=== PATIENT | female | born 1965 | race Caucasian/White ===

== ENCOUNTER → 2016-12-16 | Outpatient (REF) | payer OTHER | LOC: M SFHCWAGY 13:03 | PROVIDERS: ATTEND Nurse Practitioner Family | DX: N30.00 Acute cystitis without hematuria (principal) ==

== ENCOUNTER 2017-05-01 08:19 | Emergency (ER) | payer OTHER ==
[~2017-05-01] VITALS: Ht 170.2 cm; Wt 115.5 kg
[2017-05-01] MEDS ORDERED: MULT1CHW39 PO (08:48)
[2017-05-01] MEDS ORDERED: NS 1,000 ML IV ONE (09:00)
[2017-05-01 09:33] LABS: BASO # 0.1 K/mm3 (0.0-0.2); BASO % 0.5 % (0.0-1.0); EOS # 0.2 K/mm3 (0.0-0.50); EOS % 1.4 % (0.0-3.0); LARGE UNSTAINED CELL # 0.1 K/mm3 (0.0-0.4); LARGE UNSTAINED CELL % 0.9 % (0.0-4.0); LYMPH # 2.1 K/mm3 (1.5-4.5); LYMPH % 13.5 % (24.0-44.0); MEAN CORPUSCULAR HEMOGLOBIN 31.1 pg (27.0-33.0); MEAN CORPUSCULAR HGB CONC 33.5 g/dl (32.0-36.5); MEAN CORPUSCULAR VOLUME 92.7 fl (80.0-96.0); MONO # 0.7 K/mm3 (0.0-0.8); MONO % 4.7 % (0.0-5.0); NEUTROPHILS # 12.1 K/mm3 (1.8-7.7); NEUTROPHILS % 79.1 % (36.0-66.0); PLATELET COUNT, AUTOMATED 312 k/mm3 (150-450); RED CELL DISTRIBUTION WIDTH 13.2 % (11.5-14.5); WHITE BLOOD COUNT 15.3 K/mm3 (4.0-10.0)
[2017-05-01 09:51] LABS: ALBUMIN 3.1 GM/DL (3.2-5.2); ALBUMIN/GLOBULIN RATIO 0.72 (1.00-1.93); ALKALINE PHOSPHATASE 79 U/L (45-117); ALT/SGPT 19 U/L (12-78); ANION GAP 6 MEQ/L (8-16); AST/SGOT 10 U/L (15-37); BILIRUBIN,DIRECT 0.2 MG/DL (0.0-0.2); BLOOD UREA NITROGEN 14 MG/DL (7-18); CALCIUM LEVEL 9.1 MG/DL (8.5-10.1); CARBON DIOXIDE LEVEL 29 MEQ/L (21-32); CHLORIDE LEVEL 96 MEQ/L (98-107); CREATININE FOR GFR 0.89 MG/DL (0.55-1.02); GLOMERULAR FILTRATION RATE > 60.0 (>51); GLUCOSE, FASTING 395 MG/DL (70-105); POTASSIUM SERUM 4.1 MEQ/L (3.5-5.1); SODIUM LEVEL 131 MEQ/L (136-145); TOTAL PROTEIN 7.4 GM/DL (6.4-8.2)
[2017-05-01 09:57] LABS: CONTROL LINE UCG INT CTR LINE PRESENT
[2017-05-01] MEDS ORDERED: ISOVUE-370 76% 100ML VIAL (Q9967) As Ordered ONE (10:29)
[2017-05-01] MEDS ORDERED: HumuLIN R (REGULAR) INSULIN (NovoLIN R) **100U/ML** PER UNIT IV ONE (10:30)
[2017-05-01] MEDS ORDERED: cefTRIAXone SOD 1 GM in D5W MINI-BAG PLUS 50 ML IV ONE (10:30)
[2017-05-01 11:18] LABS: INR 1.03
--- NOTE | 2017-05-01 11:33 | REP ---
KUB: Single view. HISTORY: Question stone. Comparison KUB April 18, 2011. FINDINGS: There is a 5.4 cm staghorn calculus projecting over the upper pole of the right kidney. In addition, there is a oval-shaped 8.6 mm calculus projecting in the left pelvis which could be in the distal ureter. Bowel gas pattern is normal. There are degenerative changes in the lumbar spine. No mass or organomegaly is seen. IMPRESSION: 1. Suspect 5.4 cm staghorn calculus upper pole right kidney. 2. Suspect a 8.6 mm distal ureteral calculus on the left. Signed by Mason Becerril MD 05/01/2017 12:59 P
[2017-05-01] MEDS ORDERED: METF500T PO (12:17)
[2017-05-01] MEDS ORDERED: CIPR500T89 PO (12:17)
[2017-05-01] MEDS ORDERED: ADVOMIS4 XX (12:17)
[2017-05-01] MEDS ORDERED: D-CA1KIT XX (12:17)
[2017-05-01 12:22] VITALS: BP 179/86
--- NOTE | 2017-05-01 15:24 | REP ---
URINARY TRACT SONOGRAPHY: HISTORY: Pyelonephritis versus stone. SONOGRAPHIC FINDINGS: In the upper pole right kidney there is a large shadowing calculus. The right kidney measures 14.4 x 5.4 x 6.6 cm. No right-sided hydronephrosis is seen. The right kidney is otherwise unremarkable. The left kidney is not well seen. There are multiple echogenic interfaces in the region of the left kidney. These resemble calcifications perhaps gas as there is acoustic shadowing. They obscure much of the visualization of the kidney. No large stones are visible in the left kidney by KUB. Limited views of the urinary bladder shows that it is unremarkable as seen. IMPRESSION: 1. Large intrarenal calculus right kidney no right-sided hydronephrosis. 2. Poorly visualized left kidney. Multiple echogenic interfaces throughout the region of the left kidney, calculi versus gas. Recommend CT scanning. Signed by Masno Becerril MD 05/01/2017 04:48 P
--- NOTE | 2017-05-02 07:56 | ED PDOC ---
Post-Departure Follow-Up radiology report faxed to Jose Francisco Harris Sarah MD May 02, 2017 07:56
== END 2017-05-01 12:30 | disposition left against medical advice (07) ==
LOC: M ED 09:03
DX: N39.0 Urinary tract infection, site not specified (principal); E11.65 Type 2 diabetes mellitus with hyperglycemia; N20.0 Calculus of kidney; Z91.040 Latex allergy status; Z91.013 Allergy to seafood; Z88.1 Allergy status to other antibiotic agents; Z88.2 Allergy status to sulfonamides; Z79.899 Other long term (current) drug therapy

== ENCOUNTER → 2017-05-09 | Outpatient (REF) | payer OTHER ==
[~2017-05-09] MED LIST: ADVOMIS4 XX; CIPR500T89 PO; D-CA1KIT XX; METF500T PO; MULT1CHW39 PO
== END ==
LOC: M LAB REF 13:49
PROVIDERS: ATTEND Nurse Practitioner Family
DX: E11.9 Type 2 diabetes mellitus without complications (principal)

== ENCOUNTER → 2017-05-17 | Outpatient (REF) | payer OTHER ==
[2017-05-17 19:38] LABS: TRIPLE PHOSPHATE CRYSTALS MODERATE
== END ==
LOC: M SMT 17:19
PROVIDERS: ATTEND Nurse Practitioner Women's Health
DX: N39.0 Urinary tract infection, site not specified (principal)

== ENCOUNTER → 2017-05-24 | Outpatient (REF) | payer OTHER ==
[~2017-05-24] MED LIST changes: +CIPR-249 PO; -CIPR500T89 PO; -METF500T PO; +METF500T13 PO
== END ==
LOC: M SFHCWAGY 13:43
PROVIDERS: ATTEND Nurse Practitioner Family
DX: Z12.4 Encounter for screening for malignant neoplasm of cervix (principal)

== ENCOUNTER → 2017-08-29 | Outpatient (REF) | payer OTHER | LOC: M LAB REF 11:58 | PROVIDERS: ATTEND Nurse Practitioner Family | DX: E11.9 Type 2 diabetes mellitus without complications (principal) ==

== ENCOUNTER → 2017-09-11 | Outpatient (CLI) | payer OTHER ==
[2017-09-11 13:35] LABS: ALBUMIN 3.8 GM/DL (3.2-5.2); ALKALINE PHOSPHATASE 77 U/L (45-117); ALT/SGPT 29 U/L (12-78); ANION GAP 4 MEQ/L (8-16); AST/SGOT 14 U/L (15-37); BILIRUBIN,TOTAL 0.5 MG/DL (0.2-1.0); BLOOD UREA NITROGEN 20 MG/DL (7-18); CALCIUM LEVEL 9.2 MG/DL (8.5-10.1); CARBON DIOXIDE LEVEL 32 MEQ/L (21-32); CHLORIDE LEVEL 102 MEQ/L (98-107); CHOLESTEROL LEVEL 193 MG/DL (<200); GLOMERULAR FILTRATION RATE > 60.0 (>51); GLUCOSE, FASTING 186 MG/DL (70-105); POTASSIUM SERUM 4.6 MEQ/L (3.5-5.1); SODIUM LEVEL 138 MEQ/L (136-145); TOTAL PROTEIN 7.6 GM/DL (6.4-8.2); TRIGLYCERIDES LEVEL 160 MG/DL (<150)
== END ==
LOC: M SMT 10:49
PROVIDERS: ATTEND Nurse Practitioner Family
DX: E11.9 Type 2 diabetes mellitus without complications (principal); E78.5 Hyperlipidemia, unspecified

== ENCOUNTER → 2017-12-07 | Outpatient (REF) | payer OTHER ==
[2017-12-07 21:03] LABS: ESTIMATED AVERAGE GLUCOSE 154 MG/DL (60-110)
== END ==
LOC: M LAB REF 18:43
DX: E11.9 Type 2 diabetes mellitus without complications (principal)

== ENCOUNTER → 2018-05-10 | Outpatient (CLI) | payer OTHER | LOC: M SMT 12:09 | DX: N20.0 Calculus of kidney (principal) | CPT/HCPCS: 74018 ==

== ENCOUNTER → 2018-06-04 | Outpatient (REF) | payer OTHER ==
[2018-06-04 14:11] LABS: ESTIMATED AVERAGE GLUCOSE 183 MG/DL (60-110)
[2018-06-04 14:27] LABS: CREATININE, URINE 79.2 MG/DL; MAU/CREAT RATIO 213.3 MCG/MG (0.0-30.0)
== END ==
LOC: M LAB REF 13:18
DX: E11.9 Type 2 diabetes mellitus without complications (principal)
CPT/HCPCS: 84443

== ENCOUNTER → 2018-10-23 | Outpatient (REF) | payer OTHER, SELFPAY ==
[2018-10-23 19:37] LABS: BASO # 0.1 10^3/uL (0.0-0.2); BASO % 0.8 % (0.0-1.0); EOS # 0.2 10^3/uL (0.0-0.50); EOS % 1.9 % (0.0-3.0); HEMATOCRIT 43.2 % (36.0-47.0); HEMOGLOBIN 14.3 g/dl (12.0-15.5); LYMPH # 2.6 10^3/uL (1.5-4.5); MEAN CORPUSCULAR HEMOGLOBIN 29.9 pg (27.0-33.0); MEAN CORPUSCULAR HGB CONC 33.1 g/dl (32.0-36.5); MEAN CORPUSCULAR VOLUME 90.4 fl (80.0-96.0); MONO # 0.8 10^3/uL (0.0-0.8); MONO % 7.2 % (0.0-5.0); NEUTROPHILS # 7.4 10^3/uL (1.8-7.7); NEUTROPHILS % 64.7 % (36.0-66.0); PLATELET COUNT, AUTOMATED 314 10^3/uL (150-450); RED BLOOD COUNT 4.78 10^6/uL (4.00-5.40); WHITE BLOOD COUNT 11.4 10^3/uL (4.0-10.0)
[2018-10-23 19:54] LABS: HEMOGLOBIN A1c 8.6 %
[2018-10-23 20:18] LABS: ALBUMIN 3.3 GM/DL (3.2-5.2); ALT/SGPT 51 U/L (12-78); BILIRUBIN,TOTAL 0.5 MG/DL (0.2-1.0); BLOOD UREA NITROGEN 22 MG/DL (7-18); CALCIUM LEVEL 8.9 MG/DL (8.5-10.1); CARBON DIOXIDE LEVEL 29 MEQ/L (21-32); CHLORIDE LEVEL 98 MEQ/L (98-107); CREATININE FOR GFR 0.87 MG/DL (0.55-1.30); GLOMERULAR FILTRATION RATE > 60.0 (>51); GLUCOSE, FASTING 212 MG/DL (70-100); MAGNESIUM LEVEL 1.6 MG/DL (1.8-2.4); POTASSIUM SERUM 4.5 MEQ/L (3.5-5.1); SODIUM LEVEL 136 MEQ/L (136-145); TOTAL PROTEIN 7.1 GM/DL (6.4-8.2)
== END ==
LOC: M LAB REF 19:09
PROVIDERS: ATTEND Nurse Practitioner Adult Health
DX: E11.9 Type 2 diabetes mellitus without complications (principal); I10 Essential (primary) hypertension

== ENCOUNTER → 2018-10-23 | Outpatient (REF) | payer OTHER ==
[2018-10-23 18:41] LABS: APPEARANCE, URINE HAZY (CLEAR); BACTERIA, URINE AUTO NEGATIVE (NEGATIVE); BILIRUBIN, URINE AUTO NEGATIVE (NEGATIVE); BLOOD, URINE BLOOD 2+ (NEGATIVE); COLOR, URINE YELLOW (YELLOW); GLUCOSE, URINE (UA) AUTO NEGATIVE (NEGATIVE); KETONE, URINE AUTO NEGATIVE (NEGATIVE); LEUKOCYTE ESTERASE, URINE AUTO 3+ (NEGATIVE); MUCUS, URINE SMALL (NEGATIVE); NITRITE, URINE AUTO NEGATIVE (NEGATIVE); PROTEIN, URINE AUTO 1+ mg/dL (NEGATIVE); RBC, URINE AUTO 13 /HPF (0-3); SPECIFIC GRAVITY URINE AUTO 1.013 (1.002-1.035); SQUAMOUS EPITHELIAL CELL UR AU 2 /HPF (0-6); UROBILINOGEN, URINE AUTO 0.2 mg/dL (0.0-2.0); WBC, URINE AUTO 89 /HPF (0-3)
[2018-10-23 18:51] LABS: CREATININE, URINE 96.5 MG/DL; MAU/CREAT RATIO 130.5 MCG/MG (0.0-30.0)
== END ==
LOC: M LAB REF 18:02
DX: I10 Essential (primary) hypertension (principal); E11.9 Type 2 diabetes mellitus without complications
CPT/HCPCS: 82043

== ENCOUNTER → 2019-02-20 | Outpatient (REF) | payer OTHER ==
[2019-02-20 13:27] LABS: HEMOGLOBIN A1c 9.6 %
== END ==
LOC: M LAB REF 12:14
PROVIDERS: ATTEND Nurse Practitioner Adult Health
DX: E11.9 Type 2 diabetes mellitus without complications (principal)

== ENCOUNTER → 2019-05-01 | Outpatient (CLI) | payer OTHER ==
[~2019-05-01] MED LIST changes: -MULT1CHW39 PO; +MULT200T7 PO
--- NOTE | 2019-05-02 05:50 | REP ---
Clinical: Abnormal lung findings. Technique: Axial noncontrast images from the thoracic inlet to the upper abdomen with coronal and sagittal re-formations. Findings: A 16 mm round noncalcified nodule is identified in the lateral segment right middle lobe (image 53) comparison is made to abdominal CT from outside institution dated 10/01/2018 which demonstrates lesions measure approximately 14.5 mm. Size difference may be technical rather than due to actual growth. A second smaller noncalcified nodule is identified just proximally along the same vascular bundle (image 47) which measures 5 mm and remains stable. Lymph nodes within the mediastinum measure up to 11 mm and are nonspecific in appearance. Remainder of lung flores are relatively well aerated. Minimal fibroatelectatic changes to the lingula noted. No further consolidation, nodule or mass lesion identified. No effusion. No pneumothorax. Tracheobronchial tree is patent. Thoracic aorta and heart/pericardium are stable including small pericardial fluid. Osseous structures are intact without focal abnormality. Limited upper abdomen demonstrates normal bilateral adrenal glands. Impression: 1. Two noncalcified nodules measuring 5 mm and 16 mm which may be relatively stable when allowing for subtle technical differences. Given the size of the larger nodule PET-CT may be appropriate follow-up. Electronically Signed by Tyrone Ramirez MD 05/02/2019 05:41 A
== END ==
LOC: M RAD 10:51
PROVIDERS: ATTEND Internal Medicine Pulmonary Disease
DX: R91.1 Solitary pulmonary nodule (principal)

== ENCOUNTER → 2019-05-06 | Outpatient (REF) | payer OTHER ==
[2019-05-06 18:54] LABS: APPEARANCE, URINE CLOUDY (CLEAR); BACTERIA, URINE AUTO 2+ (NEGATIVE); BILIRUBIN, URINE AUTO NEGATIVE (NEGATIVE); BLOOD, URINE BLOOD 3+ (NEGATIVE); COLOR, URINE YELLOW (YELLOW); GLUCOSE, URINE (UA) AUTO 3+ mg/dL (NEGATIVE); KETONE, URINE AUTO NEGATIVE (NEGATIVE); LEUKOCYTE ESTERASE, URINE AUTO 3+ (NEGATIVE); NITRITE, URINE AUTO NEGATIVE (NEGATIVE); PROTEIN, URINE AUTO 1+ mg/dL (NEGATIVE); RBC, URINE AUTO 62 /HPF (0-3); SQUAMOUS EPITHELIAL CELL UR AU 3 /HPF (0-6); UROBILINOGEN, URINE AUTO 0.2 mg/dL (0.0-2.0); WBC, URINE AUTO TNTC /HPF (0-3)
== END ==
LOC: M LAB REF 16:58
PROVIDERS: ATTEND Nurse Practitioner Adult Health
DX: N39.0 Urinary tract infection, site not specified (principal)

== ENCOUNTER → 2019-07-23 | Outpatient (REF) | payer OTHER ==
[~2019-07-23] MED LIST changes: +DIFL200T PO; +ERTA1INJ3 IV; +HUMA100I5; +MACR100C43 PO; +METF-839 PO; +[UNRECOGNIZED DRUG - OTHER]
[2019-07-25 14:29] LABS: HPV HYBRID CAPTURE II Negative (Negative)
== END ==
LOC: M SFHCWAGY 11:25
PROVIDERS: ATTEND Nurse Practitioner Family
DX: Z12.4 Encounter for screening for malignant neoplasm of cervix (principal)

== ENCOUNTER → 2019-08-08 | Outpatient (REF) | payer OTHER ==
[~2019-08-08] MED LIST changes: -DIFL200T PO; -ERTA1INJ3 IV; -HUMA100I5; -MACR100C43 PO; -METF-839 PO; -[UNRECOGNIZED DRUG - OTHER]
[2019-08-08 13:31] LABS: APPEARANCE, URINE TURBID (CLEAR); BACTERIA, URINE AUTO 1+ (NEGATIVE); BILIRUBIN, URINE AUTO NEGATIVE (NEGATIVE); BLOOD, URINE BLOOD 2+ (NEGATIVE); COLOR, URINE YELLOW (YELLOW); GLUCOSE, URINE (UA) AUTO 2+ mg/dL (NEGATIVE); KETONE, URINE AUTO NEGATIVE (NEGATIVE); LEUKOCYTE ESTERASE, URINE AUTO 3+ (NEGATIVE); MUCUS, URINE SMALL (NEGATIVE); NITRITE, URINE AUTO POSITIVE (NEGATIVE); PROTEIN, URINE AUTO 2+ mg/dL (NEGATIVE); RBC, URINE AUTO 109 /HPF (0-3); SPECIFIC GRAVITY URINE AUTO 1.012 (1.002-1.035); SQUAMOUS EPITHELIAL CELL UR AU 0 /HPF (0-6); UROBILINOGEN, URINE AUTO 0.2 mg/dL (0.0-2.0); WBC, URINE AUTO TNTC /HPF (0-3)
== END ==
LOC: M LAB REF 11:44
PROVIDERS: ATTEND Nurse Practitioner Adult Health
DX: N39.0 Urinary tract infection, site not specified (principal)

== ENCOUNTER 2019-09-12 13:42 | Outpatient (CLI) | payer OTHER ==
[~2019-09-12] VITALS: Ht 170.2 cm; Wt 145.2 kg
[~2019-09-12 13:42] MED LIST changes: -DIFL200T PO; -ERTA1INJ3 IV; -HUMA100I5
[2019-09-12 14:00] VITALS: BP 136/90
[2019-09-12] MEDS ORDERED: ERTAPENEM SODIUM 1 GM in NS MINI-BAG PLUS 50 ML IV ONE (14:30)
[2019-09-12] MEDS ORDERED: MEROPENEM INJ 1 GM in IV 1 EA IV ONE (15:00)
[2019-09-12 15:06] VITALS: BP 127/83
[2019-09-13] MEDS ORDERED: DIFL200T PO (14:57)
[2019-09-13] MEDS ORDERED: ERTA1INJ3 IV (14:58)
== END 2019-09-12 15:06 | disposition home or self-care (01) ==
LOC: M INFU 13:42
PROVIDERS: ATTEND Hospitalist
DX: N39.0 Urinary tract infection, site not specified (principal)
CPT/HCPCS: 96365; J1335

== ENCOUNTER → 2019-09-12 | Outpatient (CLI) | payer OTHER ==
[~2019-09-12] MED LIST changes: +DIFL200T PO; +ERTA1INJ3 IV; +HUMA100I5
[2019-09-12 14:43] LABS: BASO # 0.1 10^3/uL (0.0-0.2); BASO % 0.6 % (0.0-1.0); EOS # 0.2 10^3/uL (0.0-0.5); EOS % 1.6 % (0.0-3.0); HEMATOCRIT 38.7 % (36.0-47.0); HEMOGLOBIN 12.1 g/dl (12.0-15.5); LYMPH # 3.6 10^3/uL (1.5-5.0); LYMPH % 38.6 % (24.0-44.0); MEAN CORPUSCULAR HEMOGLOBIN 29.4 pg (27.0-33.0); MEAN CORPUSCULAR HGB CONC 31.3 g/dl (32.0-36.5); MEAN CORPUSCULAR VOLUME 94.2 fl (80.0-96.0); MONO # 0.6 10^3/uL (0.0-0.8); MONO % 6.1 % (0.0-5.0); NEUTROPHILS # 4.9 10^3/uL (1.5-8.5); NEUTROPHILS % 52.2 % (36.0-66.0); PLATELET COUNT, AUTOMATED 534 10^3/uL (150-450); RED BLOOD COUNT 4.11 10^6/uL (4.00-5.40); WHITE BLOOD COUNT 9.4 10^3/uL (4.0-10.0)
[2019-09-12 15:03] LABS: ALBUMIN 2.7 GM/DL (3.2-5.2); BILIRUBIN,TOTAL 0.5 MG/DL (0.2-1.0); C REACTIVE PROTEIN QUANTITATIV 1.53 MG/DL (0.00-0.30); CALCIUM LEVEL 8.9 MG/DL (8.5-10.1); CREATININE FOR GFR 1.07 MG/DL (0.55-1.30); GLOMERULAR FILTRATION RATE 57.1 (>51); POTASSIUM SERUM 4.7 MEQ/L (3.5-5.1); TOTAL PROTEIN 7.4 GM/DL (6.4-8.2)
[2019-09-12 15:28] LABS: ERYTHROCYTE SEDIMENTATION RATE 63 mm/hr (0-30)
== END ==
LOC: M LAB 13:48
PROVIDERS: ATTEND Internal Medicine Infectious Disease
DX: N39.0 Urinary tract infection, site not specified (principal); Z79.2 Long term (current) use of antibiotics; B96.20 Unspecified Escherichia coli [E. coli] as the cause of diseases classified elsewhere

== ENCOUNTER 2019-09-13 13:42 | Outpatient (CLI) | payer OTHER ==
[~2019-09-13] VITALS: Ht 170.2 cm; Wt 145.2 kg
[2019-09-13 13:50] VITALS: BP 183/91
[2019-09-13] MEDS ORDERED: ERTAPENEM SODIUM 1 GM in NS MINI-BAG PLUS 50 ML IV ONE (14:00)
[2019-09-13] MEDS ORDERED: ONDANSETRON 4 MG TAB (S0181) PO ONE (14:15)
[2019-09-13] MEDS ORDERED: DIFL200T PO (14:57)
[2019-09-13] MEDS ORDERED: ERTA1INJ3 IV (14:58)
[2019-09-13 15:20] VITALS: BP 140/89
== END 2019-09-13 15:20 | disposition home or self-care (01) ==
LOC: M INFU 13:42
PROVIDERS: ATTEND Hospitalist
DX: N39.0 Urinary tract infection, site not specified (principal)
CPT/HCPCS: 96365; J1335

== ENCOUNTER 2019-09-14 16:19 | Outpatient (CLI) | payer OTHER ==
[~2019-09-14 16:19] MED LIST changes: +DIFL200T PO; +ERTA1INJ3 IV
[2019-09-14 17:00] VITALS: BP 132/98
[2019-09-14] MEDS ORDERED: ERTAPENEM SODIUM 1 GM in NS MINI-BAG PLUS 50 ML IV ONE (17:30)
[2019-09-14] MEDS ORDERED: ONDANSETRON 4 MG TAB (S0181) PO ONE (18:15)
== END 2019-09-14 18:57 | disposition home or self-care (01) ==
LOC: M OPCLI4PV 16:19 → M MSPAV 16:25 → M OPCLI4PV 18:57
PROVIDERS: ATTEND Hospitalist
DX: N39.0 Urinary tract infection, site not specified (principal)
CPT/HCPCS: 96365; J1335

== ENCOUNTER 2019-09-16 13:29 | Outpatient (CLI) | payer OTHER ==
[~2019-09-16] VITALS: Ht 170.2 cm; Wt 145.2 kg
[2019-09-16 13:35] VITALS: BP 120/68
[2019-09-16] MEDS ORDERED: ERTAPENEM SODIUM 1 GM in NS MINI-BAG PLUS 50 ML IV ONE (14:00)
[2019-09-16] MEDS ORDERED: HUMA100I5 (14:55)
== END 2019-09-16 14:30 | disposition home or self-care (01) ==
LOC: M INFU 13:29
PROVIDERS: ATTEND Hospitalist
DX: N39.0 Urinary tract infection, site not specified (principal); Z53.8 Procedure and treatment not carried out for other reasons

== ENCOUNTER 2019-09-16 14:32 | Emergency (ER) | payer OTHER ==
[~2019-09-16] VITALS: Ht 170.2 cm; Wt 139.6 kg
[2019-09-16] MEDS ORDERED: HUMA100I5 (14:55)
[2019-09-16] MEDS ORDERED: NS 1,000 ML IV ONE ×2 (15:15)
[2019-09-16] MEDS ORDERED: PANTOPRAZOLE 40MG INJ (PROTONIX) (C9113) IV ONE (15:15)
[2019-09-16 15:50] LABS: BASO # 0.1 10^3/uL (0.0-0.2); BASO % 0.5 % (0.0-1.0); EOS # 0.1 10^3/uL (0.0-0.5); HEMATOCRIT 41.4 % (36.0-47.0); HEMOGLOBIN 13.4 g/dl (12.0-15.5); LYMPH # 3.2 10^3/uL (1.5-5.0); MEAN CORPUSCULAR HEMOGLOBIN 30.1 pg (27.0-33.0); MEAN CORPUSCULAR HGB CONC 32.4 g/dl (32.0-36.5); MONO # 0.7 10^3/uL (0.0-0.8); MONO % 6.5 % (0.0-5.0); NEUTROPHILS # 7.2 10^3/uL (1.5-8.5); NEUTROPHILS % 63.6 % (36.0-66.0); PLATELET COUNT, AUTOMATED 434 10^3/uL (150-450); RED BLOOD COUNT 4.45 10^6/uL (4.00-5.40); WHITE BLOOD COUNT 11.3 10^3/uL (4.0-10.0)
[2019-09-16 16:12] LABS: ALBUMIN 3.3 GM/DL (3.2-5.2); BILIRUBIN,DIRECT 0.2 MG/DL (0.0-0.2); BILIRUBIN,TOTAL 0.6 MG/DL (0.2-1.0); CALCIUM LEVEL 9.7 MG/DL (8.5-10.1); CREATININE FOR GFR 1.28 MG/DL (0.55-1.30); GLOMERULAR FILTRATION RATE 46.4 (>51); POTASSIUM SERUM 4.8 MEQ/L (3.5-5.1); TOTAL PROTEIN 8.2 GM/DL (6.4-8.2)
[2019-09-16 17:21] VITALS: BP 108/71
--- NOTE | 2019-09-17 10:04 | ECGEPIP ---
[facility] - ED Test Date: 2019-09-16 Pat Name: RALF MARION Department: Room: - Gender: Female Prorate Clerk: clyde : 1965 Requested By: Heath Moreno Order Number: [id number] Reading MD: Leeann Pinzon Measurements Intervals Lissie Rate: 117 P: 24 IA: 169 QRS: -25 QRSD: 90 T: 32 QT: 319 QTc: 447 Interpretive Statements SINUS TACHYCARDIA BORDERLINE LEFT AXIS DEVIATION NSTTW abnormalities MINIMAL VOLTAGE CRITERIA FOR LVH, CONSIDER NORMAL VARIANT ABNORMAL RHYTHM ECG NO PRIOR Electronically Signed on 09-17-2019 10:04:17 EDT by Leeann Pinzon
== END 2019-09-16 17:25 | disposition home or self-care (01) ==
LOC: M ED 14:32
DX: E86.0 Dehydration (principal); Z79.899 Other long term (current) drug therapy; Z88.1 Allergy status to other antibiotic agents; Z88.2 Allergy status to sulfonamides; Z88.8 Allergy status to other drugs, medicaments and biological substances; Z91.018 Allergy to other foods; Z91.040 Latex allergy status
CPT/HCPCS: 80048; 80076; 83690; 85025; 87507; 93005; 96361; 96374; 99284; C9113

== ENCOUNTER 2019-10-23 09:22 | Emergency (ER) | payer OTHER ==
[~2019-10-23] VITALS: Ht 170.2 cm; Wt 147.4 kg
[~2019-10-23 09:22] MED LIST changes: +HUMA100I5
[2019-10-23 10:19] LABS: BASO # 0.1 10^3/uL (0.0-0.2); BASO % 0.7 % (0.0-1.0); EOS # 0.2 10^3/uL (0.0-0.5); EOS % 3.3 % (0.0-3.0); HEMATOCRIT 38.5 % (36.0-47.0); HEMOGLOBIN 12.9 g/dl (12.0-15.5); LYMPH # 2.4 10^3/uL (1.5-5.0); LYMPH % 32.1 % (24.0-44.0); MEAN CORPUSCULAR HEMOGLOBIN 29.9 pg (27.0-33.0); MEAN CORPUSCULAR HGB CONC 33.5 g/dl (32.0-36.5); MEAN CORPUSCULAR VOLUME 89.3 fl (80.0-96.0); MONO # 0.5 10^3/uL (0.0-0.8); MONO % 6.1 % (0.0-5.0); NEUTROPHILS # 4.3 10^3/uL (1.5-8.5); NEUTROPHILS % 57.7 % (36.0-66.0); PLATELET COUNT, AUTOMATED 335 10^3/uL (150-450); RED BLOOD COUNT 4.31 10^6/uL (4.00-5.40); WHITE BLOOD COUNT 7.4 10^3/uL (4.0-10.0)
[2019-10-23 10:20] LABS: AMORPHOUS SEDIMENT SMALL (NEGATIVE); APPEARANCE, URINE TURBID (CLEAR); BACTERIA, URINE AUTO 3+ (NEGATIVE); BILIRUBIN, URINE AUTO NEGATIVE (NEGATIVE); BLOOD, URINE BLOOD 2+ (NEGATIVE); COLOR, URINE YELLOW (YELLOW); GLUCOSE, URINE (UA) AUTO NEGATIVE (NEGATIVE); KETONE, URINE AUTO NEGATIVE (NEGATIVE); LEUKOCYTE ESTERASE, URINE AUTO 3+ (NEGATIVE); MUCUS, URINE SMALL (NEGATIVE); NITRITE, URINE AUTO NEGATIVE (NEGATIVE); PROTEIN, URINE AUTO 2+ mg/dL (NEGATIVE); RBC, URINE AUTO TNTC /HPF (0-3); RENAL EPITHELIAL CELLS 1 /HPF; SPECIFIC GRAVITY URINE AUTO 1.011 (1.002-1.035); SQUAMOUS EPITHELIAL CELL UR AU 0 /HPF (0-6); TRANSITIONAL EPITHELIAL AUTO 1 /HPF; UROBILINOGEN, URINE AUTO 0.2 mg/dL (0.0-2.0); WBC, URINE AUTO TNTC /HPF (0-3)
[2019-10-23 10:43] LABS: ALBUMIN 3.5 GM/DL (3.2-5.2); ALT/SGPT 32 U/L (12-78); BILIRUBIN,DIRECT < 0.1 MG/DL (0.0-0.2); BILIRUBIN,TOTAL 0.5 MG/DL (0.2-1.0); BLOOD UREA NITROGEN 21 MG/DL (7-18); CALCIUM LEVEL 9.2 MG/DL (8.5-10.1); CARBON DIOXIDE LEVEL 29 MEQ/L (21-32); CHLORIDE LEVEL 100 MEQ/L (98-107); CREATININE FOR GFR 0.96 MG/DL (0.55-1.30); GLOMERULAR FILTRATION RATE > 60.0 (>51); GLUCOSE, FASTING 286 MG/DL (70-100); LIPASE 123 U/L (73-393); POTASSIUM SERUM 4.3 MEQ/L (3.5-5.1); SODIUM LEVEL 137 MEQ/L (136-145); TOTAL PROTEIN 7.4 GM/DL (6.4-8.2)
--- NOTE | 2019-10-23 11:22 | REP ---
Clinical: Hematuria. Technique: Axial noncontrast images from the lung bases to the pubic symphysis with coronal and sagittal re-formations. Comparison: 10/01/2018. Findings: Left kidney demonstrates percutaneous nephrostomy tube which may be within a bello and does not appear to reach the renal pelvis. Associated mild hydronephrosis along with cortical thinning and perinephric stranding is appreciated. There is a large 13 mm obstructing calculus in the proximal left ureter. The right kidney demonstrates a large forming staghorn calculus in the lower pole measuring roughly 4.7 cm maximal diameter and is without hydronephrosis or obstructing ureteral calculus. Liver, spleen, pancreas, gallbladder, and bilateral adrenal glands are normal. The enteric system is without obstruction or acute inflammatory process. Pelvis demonstrates normal bladder and uterus. No ascites. No free air. No adenopathy. Abdominal aorta demonstrates atherosclerotic changes without aneurysm. Osseous structures demonstrate degenerative changes without focal abnormality. Lung bases demonstrate a 1.6 cm nodule in the right middle lobe (image 6). Impression: 1. Percutaneous left nephrostomy tube as described above along with 13 mm obstructing calculus in the proximal left ureter. 2. Forming staghorn calculus in the lower pole right kidney. 3. Pulmonary nodule in the right middle lobe. Electronically Signed by Tyrone Ramirez MD 10/23/2019 11:14 A
[2019-10-23] MEDS ORDERED: NS 1,000 ML IV ONE (11:30)
[2019-10-23] MEDS ORDERED: ERTAPENEM SODIUM 1 GM in NS MINI-BAG PLUS 50 ML IV ONE (12:00)
[2019-10-23] MEDS ORDERED: METF-839 PO (12:09)
[2019-10-23 13:07] VITALS: BP 144/85
[2019-10-23] MEDS ORDERED: MACR100C43 PO (13:15)
--- NOTE | 2019-10-23 15:18 | IPNPDOC ---
Subjective Date Seen The patient was seen on 10/23/19. Subjective Chief Complaint/HPI Consultation report; Consultation requested By ED phycisian for admission for sepsis and pyelonephritis in a pateint with left nephrostomy tube with chronic ureteral obstruction by stone. HPI: 54 year old female with traumatic brain injury, mobid obesity, diabetes, hypertension, nephrolithiasis since the age of 24 years , bilateral stag horn calculus with an obstructing left ureteric stone from august 2019, h/o left hydronephrosis, hydroureter left nephromegaly then underwent left nephrostomy tube placement in [facility] for sepsis secondary to pyelonephritis with obstruction. she grew Ecoli and cyrus which were treated with zosyn first for 5 days then developed side effects of diarreha, nausea and hives so was changed to Ertapenem which she completed in the outpateint infusion unit. Came to the ED for some flank pain last night with bleeding in the nephrostomy tube with some clots in it. The patient is in the process of packing up her house which [employer] recently sold so has been going up and down stairs and moving around more than usual and trying to pack things up. Pateint drank a lot of water overnight and 2 glasses of wine which took care of the pain but the urine was still pink so cam eto the ED. On arrival to the ED she was tachycardic to 120, her lactate was 2.1, she was afebrile and wbc was 7.5 with no left shift. She did claim that she had a temp for 100.9 last night. ED provider consulted Dr Amanda for urology for evalautaion of the CT scan and whether something needs to be done about the nephrostomy tube and for admission. He recommended that the nephrostomy tube is in correct position and is draining so does not need adjusted and patient may be treated with oral antibiotics and follow up with urology as outpateint for definitive management of her obstructing stone. Hospitalist was then consulted for possible admission for possible sepsis and need for IV antibiotics. ROS: Patient denies any pain on the left flank, denies any colic, denies any nausea or vomting or diarrehea, no fever this am, did say had temp fo 100.9 last night. 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 Denies any chest pain or cough or SOB. Family history: Grandfather , father and sister with kidney stones from early age, diabetes in mother, goiter mother, says has calcium oxalate stone. PAS MEDICAL HISTORY: TBI, morbid obesity, hypothyroid not on any meds, Diabetes, hypertension, asthma , kidney stones, Right Lung nodule 1.[address] since 2018 at [facility] which she claims has been there for years and is not worri ed about, She also recently found a breast nodule for which she is getting mammogram as outpatient, Recently got a PMD with appointment On November [address] Olya Rader. SURGICAL HISTORY: LITHOTRIPSY 1999,03/04 ENDOMETRIAL BX./BENIGN 11/29 C SECTION 1995 MOLES REMOVED X 3 LEFT ARM/CHEST- BENIGN Social History, denies somking, alcohol or drugs. Objective Physical Examination General Exam: Positive: Alert, Cooperative, No Acute Distress Eye Exam: Positive: PERRLA, Conjunctiva & lids normal, EOMI; Negative: Sclera icteric ENT Exam: Positive: Atraumatic, Mucous membr. moist/pink, Pharynx Normal Neck Exam: Positive: Supple; Negative: JVD, thyromegaly Chest Exam: Positive: Clear to auscultation, Normal air movement Heart Exam: Positive: Rate Normal (pulse on monitor was 96), Regular Rhythm, N ormal S1, Normal S2; Negative: Murmurs, Rubs Telemetry: Positive: No significant arrhythmia Abdomen Exam: Positive: Normal bowel sounds, Soft, Other (massively obese, left nephrostomy tube in place with normal color urine with some sediments.); Negative: Tenderness, Hepatospenomegaly Skin Exam: Positive: Nl turgor and temperature; Negative: Rash, Breakdown Neuro Exam: Positive: Normal Gait, Normal Speech, Strength at 5/5 X4 ext, Normal Tone Psych Exam: Positive: Memory Intact, Oriented x 3 Assessment /Plan Assessment Dirty UA probably chronically infected urine No signs of sepsis or pyelonephritis with No pain, normal wbc, no temperature n o tachycardia or hypotension. Only lactate is mildly elevated. No SIRs criteria , q Sofa was 0 Perinephric standing possibly from old recurrent infections I personally spoke with Dr Amanda from urology and he reccomended oral antibiotics and discharge to home to follow up with urology as outpatient. Says as long as the nephrostomy tube is draining there is less chance of sepsis. Urine culture from the nephrostomy tube and urine culture for voiding. usually grows Ecoli sensitive to cphalosporins and macrobid. will suggest nitrofurtoin for [address] of cephalosporin due to her side effect to zosyn Follow up with Urology in 1 week. continue nephrostomy care. Immediatly consult urology or come back to ED if the tube stops draining. If the nephrostomy tube gets obstruction then pateint may develop sepsis. At present no sepsis or pyelonephritis. Chronic obstructive left ureter with 1.3 cm stone Bilateral stag horn calculus chronic left ureteral calculus follow up urology Diabetes poorly controlled continue home meds Hypertension continue home meds. Plan/VTE VTE Prophylaxis Ordered?: Yes VS, I&O, 24H, Fishbone Vital Signs/I&O Vital Signs Date Time Temp Pulse Resp B/P (MAP) Pulse Ox O2 Delivery O2 Flow Rate FiO2 10/23/19 13:07 104 18 144/85 (104) 100 Room Air 10/23/19 09:23 97.8 Laboratory Data 24H LABS Laboratory Tests 2 10/23/19 10:03: Immature Granulocyte % (Auto) 0.1, Neutrophils (%) (Auto) 57.7, Lymphocytes (%) (Auto) 32.1, Monocytes (%) (Auto) 6.1H, Eosinophils (%) (Auto) 3.3H, Basophils (%) (Auto) 0.7, Neutrophils # (Auto) 4.3, Lymphocytes # (Auto) 2.4, Monocytes # (Auto) 0.5, Eosinophils # (Auto) 0.2, Basophils # (Auto) 0.1, Nucleated Red Blood Cells % (auto) 0.0, Urine Color YELLOW, Urine Appearance TURBIDH, Urine pH 6.0, Urine Specific [place] 1.011, Urine Protein 2+H, Urine Glucose (Auto)(UA) NEGATIVE, Urine Ketones (Auto) NEGATIVE, Urine Blood 2+H, Urine Nitrite NEGATIVE, Urine Bilirubin NEGATIVE, Urine Urobilinogen 0.2, Urine Leukocyte Esterase (Auto) 3+H, Urine WBC (Auto) TNTCH, Urine RBC (Auto) TNTCH, Urine Hyaline Casts (Auto) 0, Urine Bacteria (Auto) 3+H, Urine Squamous Epithelial Cells 0, Urine Transitional Epithelial Cells 1, Urine Renal Epithelial Cells 1, Urine Amorphous Sediment (Auto) SMALLH, Urine Mucus (Auto) SMALL, Urine Sperm (Auto) , Anion Gap 8, Glomerular Filtration Rate > 60.0, Calcium Level 9.2, Total Bilirubin 0.5, Direct Bilirubin < 0.1, Aspartate Amino Transf (AST/SGOT) 17, Alanine Aminotransferase (ALT/SGPT) 32, Alkaline Phosphatase 105, Total Protein 7.4, Albumin 3.5, Albumin/Globulin Ratio 0.90L, Lipase 123 10/23/19 12:13: Lactic Acid Level 2.1*H CBC/BMP Laboratory Tests 10/23/19 10:03 Microbiology Microbiology 10/23/19 Blood Culture, Received Pending 10/23/19 Blood Culture, Received Pending 10/23/19 Urine Culture, Received Pending KAREN LYNN MD Oct 23, 2019 15:18
--- NOTE | 2019-10-28 13:29 | ED PDOC ---
Post-Departure Follow-Up dr allen faxed formal report of ct abd/p for fu Adams Rayo MD Oct 28, 2019 13:29
[2019-10-28] MEDS ORDERED: [UNRECOGNIZED DRUG - OTHER] (15:18)
== END 2019-10-23 13:21 | disposition home or self-care (01) ==
LOC: M ED 09:22
DX: N20.1 Calculus of ureter (principal); N12 Tubulo-interstitial nephritis, not specified as acute or chronic; Z93.6 Other artificial openings of urinary tract status; E88.81 Metabolic syndrome and other insulin resistance; E07.9 Disorder of thyroid, unspecified; E28.2 Polycystic ovarian syndrome; J45.909 Unspecified asthma, uncomplicated; Z87.820 Personal history of traumatic brain injury; Z87.442 Personal history of urinary calculi; Z91.041 Radiographic dye allergy status; Z88.2 Allergy status to sulfonamides; Z88.5 Allergy status to narcotic agent; Z88.1 Allergy status to other antibiotic agents; Z88.8 Allergy status to other drugs, medicaments and biological substances; Z91.018 Allergy to other foods; Z91.040 Latex allergy status; Z91.013 Allergy to seafood; Z79.899 Other long term (current) drug therapy; Z79.84 Long term (current) use of oral hypoglycemic drugs
CPT/HCPCS: 74176; 80048; 80076; 81001; 83605; 83690; 85025; 87040; 87088; 87186; 93041; 96365; 99284; J1335

== ENCOUNTER → 2019-12-02 | Outpatient (REF) | payer OTHER ==
[~2019-12-02] MED LIST changes: +MACR100C43 PO; +METF-839 PO; +[UNRECOGNIZED DRUG - OTHER]
== END ==
LOC: M LAB REF 12:14
PROVIDERS: ATTEND Internal Medicine
DX: N20.0 Calculus of kidney (principal); Z87.820 Personal history of traumatic brain injury; E66.9 Obesity, unspecified

== ENCOUNTER → 2020-02-24 | Outpatient (REF) | payer OTHER | LOC: M LAB REF 16:53 | PROVIDERS: ATTEND Internal Medicine | DX: N39.0 Urinary tract infection, site not specified (principal); N20.0 Calculus of kidney ==

== ENCOUNTER → 2020-04-21 | Outpatient (REF) | payer OTHER | LOC: M SFHCWAGY 12:51 | PROVIDERS: ATTEND Nurse Practitioner Family | DX: R30.0 Dysuria (principal) ==

== ENCOUNTER → 2020-09-03 | Outpatient (CLI) | payer OTHER ==
[~2020-09-03] MED LIST changes: +HYDR10TAB PO
[2020-09-03 13:21] LABS: BLOOD UREA NITROGEN 17 MG/DL (7-18); CALCIUM LEVEL 9.5 MG/DL (8.5-10.1); CARBON DIOXIDE LEVEL 26 MEQ/L (21-32); CHLORIDE LEVEL 99 MEQ/L (98-107); CREATININE FOR GFR 0.94 MG/DL (0.55-1.30); GLOMERULAR FILTRATION RATE > 60.0 (>51); GLUCOSE, FASTING 296 MG/DL (70-100); POTASSIUM SERUM 4.5 MEQ/L (3.5-5.1); SODIUM LEVEL 135 MEQ/L (136-145)
--- NOTE | 2020-09-07 09:43 | REP ---
CT ABDOMEN AND PELVIS WITHOUT INTRAVENOUS (IV) OR ORAL CONTRAST HISTORY: Hydronephrosis, kidney stone. COMPARISON: CT study from 10/23/2019. KUB study from 05/28/2020. CT FINDINGS: Digital preliminary chip machine operator radiograph demonstrates an unremarkable bowel gas pattern. A left-sided percutaneous nephrostomy tube is seen in place. The pigtail loop of the nephrostomy tube appears laterally dislodged on the chip machine operator view. Axial CT images demonstrate that this is the case with the pigtail loop seen in the cortex of the lower pole of the left kidney rather than the collecting system. There is perinephric streaking and edema. There is moderate hydronephrosis. There is mural thickening in the dilated renal pelvis consistent with pyelitis. A small calculus is seen in the ureteropelvic junction and a larger mid ureteral calculus is seen. The mid ureteral calculus measures 5 mm. There also appears to be another smaller calculus distal to this. The left ureter is dilated to the level of the 5-mm calculus with some mural edema at this level. No right-sided hydronephrosis is seen, but there is a staghorn calculus in the right kidney again noted lower pole, measuring 5.0 cm in greatest diameter. This appears a little larger than it did on the 10/23/2019 study. There is mild diffuse fatty infiltration of the liver. No abnormality is noted in the gallbladder or in the pancreas. There is a small accessory splenule. Normal adrenal glands. Some vascular calcification is seen. Normal caliber aorta is noted. The uterus is retroverted and retroflexed, but otherwise unremarkable. No abnormality is noted in the urinary bladder. There is left colonic diverticulosis without CT evidence of diverticulitis. IMPRESSION: There is moderate left-sided hydronephrosis and there are ureteropelvic junction (UPJ) and left ureteral obstructive calculi. There is mural thickening in the dilated renal pelvis, question pyelitis. The patients left nephrostomy tube is partially dislodged with the drainage pigtail loop in the cortex of the lower pole of the left kidney. There is perinephric fat streaking consistent with edema or hemorrhage. There is a large 5 cm staghorn calculus in the right kidney without right-sided hydronephrosis. Left colonic diverticulosis. [facility]
== END ==
LOC: M RAD 11:32
PROVIDERS: ATTEND Urology
DX: N13.39 Other hydronephrosis (principal); N20.0 Calculus of kidney; N20.1 Calculus of ureter; K76.0 Fatty (change of) liver, not elsewhere classified; Z96.0 Presence of urogenital implants; K57.90 Diverticulosis of intestine, part unspecified, without perforation or abscess without bleeding

== ENCOUNTER 2020-09-08 13:34 | Emergency (ER) | payer OTHER ==
[~2020-09-08] VITALS: Ht 170.2 cm; Wt 138.8 kg
[~2020-09-08 13:34] MED LIST changes: -HYDR10TAB PO
--- NOTE | 2020-09-08 16:49 | REPVR ---
PROCEDURE INFORMATION: Exam: US Retroperitoneal Limited, Kidneys Exam date and time: 09/08/2020 4:10 PM Age: 55 years old Clinical indication: Condition or disease; Other: Hydronephrosis; Additional info: Left sided hydronephrosis- pigtail catheter placement TECHNIQUE: Imaging protocol: Real-time ultrasound of the retroperitoneum with image documentation. Examination was focused on the kidneys. COMPARISON: RENAL US 05/01/2017 11:00 AM FINDINGS: Limitations: Large body habitus causes unavoidable image degradation. The patient was unable to tolerate much pressure from the transducer. Right kidney: The right kidney is normal in size. It is 13.1 x 7.4 x 7.2 cm. The renal parenchyma is mildly hyperechoic. There shadowing in the upper pole of the right kidney due to a large staghorn calcification. On the CT 5 days ago, it was 5.0 x 3.3 x 2.6 cm. Left kidney: The left kidney is enlarged and poorly visualized. It is 16.8 x 12.3 x 10.3 cm. Severe left hydronephrosis despite the nephrostomy (image 34). The position of the nephrostomy tube is not clearly demonstrated on the images provided. As noted in the report of the CT, it appears partially dislodged and in the cortex of the lower pole. Bladder: The bladder is grossly within normal limits, but it is incompletely distended. There is no wall thickening, mass or stone. IMPRESSION: 1. Severe left hydronephrosis despite the nephrostomy. The position of the nephrostomy tube is not clearly demonstrated on the images provided. As noted in the report of the CT, it appears partially dislodged and in the cortex of the lower pole. Consider CT. 2. There is a 5.0 cm staghorn calculus in the upper right kidney without hydronephrosis. Electronically signed by: Victor Manuel Lopez On 09/08/2020 16:48:53 PM
[2020-09-08 17:10] LABS: BASO % 0.5 % (0.0-1.0); EOS # 0.2 10^3/uL (0.0-0.5); EOS % 3.3 % (0.0-3.0); HEMATOCRIT 37.2 % (36.0-47.0); HEMOGLOBIN 11.9 g/dl (12.0-15.5); LYMPH # 1.9 10^3/uL (1.5-5.0); LYMPH % 26.4 % (24.0-44.0); MEAN CORPUSCULAR HEMOGLOBIN 27.9 pg (27.0-33.0); MEAN CORPUSCULAR VOLUME 87.3 fl (80.0-96.0); MONO # 0.4 10^3/uL (0.0-0.8); NEUTROPHILS # 4.6 10^3/uL (1.5-8.5); NEUTROPHILS % 63.5 % (36.0-66.0); PLATELET COUNT, AUTOMATED 329 10^3/uL (150-450); RED BLOOD COUNT 4.26 10^6/uL (4.00-5.40); WHITE BLOOD COUNT 7.3 10^3/uL (4.0-10.0)
[2020-09-08 17:19] LABS: BLOOD UREA NITROGEN 15 MG/DL (7-18); CALCIUM LEVEL 9.6 MG/DL (8.5-10.1); CARBON DIOXIDE LEVEL 31 MEQ/L (21-32); CHLORIDE LEVEL 98 MEQ/L (98-107); CREATININE FOR GFR 0.95 MG/DL (0.55-1.30); GLOMERULAR FILTRATION RATE > 60.0 (>51); GLUCOSE, FASTING 210 MG/DL (70-100); POTASSIUM SERUM 3.9 MEQ/L (3.5-5.1); SODIUM LEVEL 136 MEQ/L (136-145)
[2020-09-08] MEDS ORDERED: **hydrALAZINE** 10 MG TAB PO ONE (18:00)
[2020-09-08 18:10] VITALS: BP 185/74
[2020-09-09] MEDS ORDERED: HYDR10TAB PO (14:14)
== END 2020-09-08 18:19 | disposition home or self-care (01) ==
LOC: M ED 13:34
DX: T83.022A Displacement of nephrostomy catheter, initial encounter (principal); Y73.2 Prosthetic and other implants, materials and accessory gastroenterology and urology devices associated with adverse incidents; N20.0 Calculus of kidney; N13.39 Other hydronephrosis; E03.9 Hypothyroidism, unspecified; J45.909 Unspecified asthma, uncomplicated; E88.81 Metabolic syndrome and other insulin resistance; Z87.442 Personal history of urinary calculi; Z91.041 Radiographic dye allergy status; Z91.018 Allergy to other foods; Z88.2 Allergy status to sulfonamides; Z88.5 Allergy status to narcotic agent; Z88.1 Allergy status to other antibiotic agents; Z91.040 Latex allergy status; Z91.013 Allergy to seafood; Z87.440 Personal history of urinary (tract) infections; Z79.899 Other long term (current) drug therapy

== ENCOUNTER → 2020-09-09 | Outpatient (CLI) | payer OTHER ==
[~2020-09-09] MED LIST changes: +CEFD300CAP PO; +CEPHALEXIN 500 MG CAP PO ONE; +HYDR10TAB PO
[2020-09-09 15:15] VITALS: BP 166/77
--- NOTE | 2020-09-10 09:41 | POST-OPPD ---
Postoperative Procedure Note Date Of Procedure: Sep 09, 2020 Time Of Procedure: 16:00 IR Nephrostomy catheter replacement. Clinical Information:Patient with left renal stones. Under the care of urology in [place]. Patient's left nephrostomy is not draining and is retracted. Left flank pain. Anaphylactic reaction to contrast. Physician: Dr. Zelaya. Procedure: The patient was advised of the benefits, risks, and alternatives of the procedure and informed consent was obtained. A time out was performed with verification of the patient's name, MRN, site of procedure, and type of procedure to be performed. The patient was positioned in the prone position on the angiographic table. The site was prepped and draped in the usual sterile fashion. Moderate sedation was not required. The physician spent 45 minutes of continuous [id number] time with the patient. A air tool operator radiograph reveals retracted left nephrostomy. The catheter was cut, a wire was advanced through the catheter and the catheter was removed of the wire. A kumpe catheter was advanced over the wire under fluoroscopy guidance and used to recanalize the left renal pelvis. The wire was removed. Cloudy urine started draining from the kumpe catheter. Air nephrostogram was performed confirming access in the left renal pelvis. The wire was readvanced through the catheter into the left renal pelvis, under fluoroscopic guidance. The kumpe catheter was removed over the wire. A new 8.5 Tanzanian resolve nephrostomy catheter was advanced over the wire, into the left renal collecting system. The wire was removed. The pigtail was formed. The catheter was secured in place with 2-0 Prolene. A sterile dressing was applied to the site. The catheter is now draining copious amounts of yellow urine. The patient tolerated the procedure well and was returned to the PRU in stable condition. EBL:Less than 5 mL. Complications:None. Conclusion: 1. Left nephrostomy catheter retracted and not draining. 2. Successful replacement of left nephrostomy catheter. Catheter is now draining copious amounts of yellow urine. 3. Patient to follow-up with urology for stone removal procedures as planned. If this catheter is still in place at 3 months, patient will require routine nephrostomy exchange. Thank you for this referral. Cc Dr. Robbi Matute. RIKI ZELAYA MD Sep 10, 2020 09:41
== END ==
LOC: M IRPRO 13:26
PROVIDERS: ATTEND Radiology Diagnostic Radiology
DX: N20.0 Calculus of kidney (principal)
CPT/HCPCS: 50435; C1729; C1769; C1887

== ENCOUNTER → 2020-09-24 | Outpatient (CLI) | payer OTHER ==
[~2020-09-24] MED LIST changes: -CEPHALEXIN 500 MG CAP PO ONE
--- NOTE | 2020-09-24 10:48 | REP ---
INDICATION: KIDNEY STONES; CALL IR TO MAKE RJ AWARE; AT MAIN REG. COMPARISON: 09/08/2020. TECHNIQUE: Real-time sonographic evaluation of the kidneys is performed. FINDINGS: Study is limited due to body habitus. Large calculus is again seen in the upper pole the right kidney. There is no right hydronephrosis. Pigtail catheter is seen in the left lower pole collecting system. There is severe cortical thinning. There is severe dilatation of the left renal collecting system but this appears to have improved since the prior study. The right kidney measures 13.3 x 6.2 x 6.7 cm. Left renal dimensions are 14.4 x 8.3 x 8.3 cm. The urinary bladder is unremarkable, a right ureteral jet is visualized with Doppler color evaluation, a left ureteral jet is not visualized.. IMPRESSION: Large calculus is again seen in the upper pole the right kidney. There is no right hydronephrosis. Pigtail catheter is seen in the left lower pole collecting system. There is severe cortical thinning. There is severe dilatation of the left renal collecting system but this appears to have improved since the prior study. The urinary bladder is unremarkable, a right ureteral jet is visualized with Doppler color evaluation, a left ureteral jet is not visualized.. <Electronically signed by Yaya Ramsay > 09/24/20 [id number]
--- NOTE | 2020-09-24 20:32 | REP ---
INDICATION: KIDNEY STONES COMPARISON: None. TECHNIQUE: Supine view of the abdomen and pelvis. FINDINGS: Large calculi are suggested in the right kidney. A left nephrostomy tube is noted but its position within the kidney cannot be confirmed. Bowel gas pattern is nonspecific and without obstruction or perforation. No organomegaly. Skeletal structures intact. IMPRESSION: Large right renal calculus. Left nephrostomy tube in questionable position. <Electronically signed by Tyrone Ramirez > 09/24/202027
== END ==
LOC: M RAD 09:27
PROVIDERS: ATTEND Specialist
DX: N20.0 Calculus of kidney (principal); Z93.6 Other artificial openings of urinary tract status

== ENCOUNTER → 2020-09-29 | Outpatient (POV) | payer OTHER ==
[~2020-09-29] MED LIST changes: -CEFD300CAP PO
--- NOTE | 2020-09-30 11:40 | IRPN ---
[facility] IR Progress Note IR Progress Note DATE: Sep 29, 2020 Patient agreed to this telephone follow-up. I spent 20 minutes reviewing patient's imaging, history and talking to the patient. FOLLOW-UP: 55-year-old female with history of bilateral kidney stones and left nephrostomy catheter, was referred to me due to dislodgment of left nephrostomy catheter. I performed a left nephrostomy replacement on 09/09/2020. Left nephrostomy catheter is draining well. No pain. No fevers or chills. She follows with a urologist in [place] who attempted a left ureteral stent placement recently however was unsuccessful. Patient also suffered a severe allergic reaction to contrast used during the procedure resulting in hives and hospital admission. ON EXAMINATION: No video on patient side. Imaging: I personally reviewed the CT abdomen and pelvis performed 09/03/2020. At that time there was left-sided hydronephrosis and a retracted left nephrostomy catheter in a calyx with significant hydronephrosis, perinephric stranding and hydroureter. An occluding distal ureteral stone was present. I personally reviewed the CT abdomen and pelvis from September 2019. At that time there was also a left nephrostomy. At that time there was a larger mid ureteral stone with hydronephrosis. IMPRESSION: 55-year-old female with long history of bilateral renal stones and obstructing left ureteral stone. Currently she does have a distal ureteral stone which may be a fragment of the prior or a new one. She likely has ureteral strictures from multiple stones passing. I can try a nephroureteral stent on this patient however she is allergic to contrast for which she will have to be premedicated with steroids. Patient also has malignant hyperthermia and we will try this procedure without sedation or anesthesia. We discussed the risks and benefits of the procedure and patient would like to proceed. We'll schedule the patient for the procedure. Thank you for this referral CC Dr. Virginia Stafford Allergies Coded Allergies: Contrast Media (Verified Allergy, Severe, SOB/RASH, 10/23/19) banana (Verified Allergy, Severe, SOB, 10/23/19) Kiwi (Verified Allergy, Intermediate, HIVES, 10/23/19) Sulfa (Sulfonamide Antibiotics) (Verified Allergy, Intermediate, HIVES, 09/16/19) codeine (Verified Allergy, Intermediate, N/V, HIVES, 10/23/19) latex (Verified Allergy, Intermediate, RASH, 09/16/19) erythromycin base (Verified Allergy, Unknown, HIVES, 10/23/19) levofloxacin (Verified Allergy, Unknown, RASH/SOB, 10/23/19) sulfamethoxazole (Verified Allergy, Unknown, HIVES, 10/23/19) trimethoprim (Verified Allergy, Unknown, HIVES, 10/23/19) shellfish derived (Verified Adverse Reaction, Intermediate, BURNING TONGUE, 10/23/19) ertapenem (Verified Adverse Reaction, Unknown, N/V, 10/23/19) morphine (Verified Adverse Reaction, Unknown, HALLUCINATIONS, 10/23/19) RIKI DE LA ROSA MD Sep 30, 2020 11:40
== END ==
LOC: M TMIRPOV 08:06
PROVIDERS: ATTEND Radiology Diagnostic Radiology
DX: Z43.6 Encounter for attention to other artificial openings of urinary tract (principal); N13.2 Hydronephrosis with renal and ureteral calculous obstruction; T88.3XXD Malignant hyperthermia due to anesthesia, subsequent encounter; X58.XXXD Exposure to other specified factors, subsequent encounter; Z87.442 Personal history of urinary calculi; Z91.041 Radiographic dye allergy status

== ENCOUNTER 2020-10-05 12:32 | Emergency (ER) | payer OTHER ==
[~2020-10-05] VITALS: Ht 170.2 cm; Wt 138.5 kg
[2020-10-05 13:52] LABS: BASO % 0.4 % (0.0-1.0); EOS # 0.1 10^3/uL (0.0-0.5); EOS % 1.8 % (0.0-3.0); HEMATOCRIT 36.6 % (36.0-47.0); HEMOGLOBIN 11.4 g/dl (12.0-15.5); LYMPH # 1.5 10^3/uL (1.5-5.0); LYMPH % 20.9 % (24.0-44.0); MEAN CORPUSCULAR HEMOGLOBIN 27.6 pg (27.0-33.0); MEAN CORPUSCULAR HGB CONC 31.1 g/dl (32.0-36.5); MEAN CORPUSCULAR VOLUME 88.6 fl (80.0-96.0); MONO # 0.4 10^3/uL (0.0-0.8); MONO % 5.4 % (0.0-5.0); NEUTROPHILS % 71.1 % (36.0-66.0); PLATELET COUNT, AUTOMATED 346 10^3/uL (150-450); RED BLOOD COUNT 4.13 10^6/uL (4.00-5.40); WHITE BLOOD COUNT 7.1 10^3/uL (4.0-10.0)
--- NOTE | 2020-10-05 14:19 | REP ---
INDICATION: left nephrostomy not draining, fever. COMPARISON: 09/03/2020 TECHNIQUE: Noncontrast CT abdomen pelvis with coronal and sagittal reconstructions. FINDINGS: CT abdomen: Lung bases are clear on the left and show stable nodule anteriorly in the right base. Heart size unchanged with the the heavy calcifications in the mitral annulus. There is a small hiatal hernia. Mild hepatomegaly without significant splenomegaly left hepatic lobe is enlarged no biliary dilatation or adjacent ascites. Gallbladder without calcified stone or mass. Pancreas was unremarkable. The adrenal glands were normal. The aorta has calcifications on aneurysm no periaortic retroperitoneal or mesenteric pathologic sized lymphadenopathy. There is a small splenule adjacent to the anterior margin of the lower pole the spleen unchanged. Right kidney shows a staghorn calculus in the upper pole but is rotated horizontally in the renal fossa surrounded by abundant perinephric fat. There is a worsening of hydronephrosis in the left kidney compared to the previous study the percutaneous nephrostomy pigtail drainage catheter had been repositioned or replaced compared to the previous study. It may be just outside a calyx. The AP diameter of the renal pelvis is 4.5 cm, previously 3.5 cm for that extra renal pelvis. There is less stranding about the kidney than on the previous study but there are air-fluid levels in the renal collecting system. I do not see perinephric air. Left ureter is dilated down to level of the sacrum on the axial image 125 where there is a 6 mm stone. This does not appear changed in size or location. Mild right hydronephrosis without hydroureter. Small bowel loops and colon grossly intact. CT pelvis: Uterus retroverted but unchanged no pelvic mass bladder without mass or wall thickening. There is no abdominal or pelvic ascites perforation or free air in the abdomen or pelvis. No ventral or inguinal hernia. There is a 6 millimeters stone in the distal left ureter. IMPRESSION: 1. Pertain is catheter in the kidney but not draining. It may not be in a calyx. The obstruction of that kidney is increased compared to the previous study with the extrarenal pelvis now 4.5 centimeters previously 3.5 centimeters. In addition there are a few air bubbles in the collecting system. This implies hydronephrosis with pyelonephritis and pyonephrosis, an obstructed infected system. It requires immediate consultation. A 6 millimeter stone in the distal ureter on the left is also noted. 2. Mild hydronephrosis the right kidney and a large staghorn calcification in the upper pole the kidneys rotated on its long axis as before. 3. No generalized ascites perforation or free air. 4. Hepatomegaly without splenomegaly. There are no other interval changes. Critical Findings: Left kidney hydronephrosis with pyelonephritis and pyonephrosis. The critical information above was relayed directly by me by telephone to GAGE MAY on 10/05/2020 at 2:10 pm with readback verification. <Electronically signed by Miguel Chacon > 10/05/20 [id number]
[2020-10-05 14:27] LABS: ALBUMIN 3.2 GM/DL (3.2-5.2); ALT/SGPT 17 U/L (12-78); BILIRUBIN,DIRECT < 0.1 MG/DL (0.0-0.2); BILIRUBIN,TOTAL 0.4 MG/DL (0.2-1.0); BLOOD UREA NITROGEN 17 MG/DL (7-18); CALCIUM LEVEL 9.8 MG/DL (8.5-10.1); CARBON DIOXIDE LEVEL 33 MEQ/L (21-32); CHLORIDE LEVEL 94 MEQ/L (98-107); CREATININE FOR GFR 0.92 MG/DL (0.55-1.30); GLOMERULAR FILTRATION RATE > 60.0 (>51); GLUCOSE, FASTING 394 MG/DL (70-100); POTASSIUM SERUM 5.5 MEQ/L (3.5-5.1); SODIUM LEVEL 130 MEQ/L (136-145); TOTAL PROTEIN 7.8 GM/DL (6.4-8.2)
[2020-10-05 14:28] LABS: LIPASE 81 U/L (73-393)
[2020-10-05] MEDS ORDERED: ONDANSETRON 4MG/2ML VIAL IV ONE (14:30)
[2020-10-05] MEDS ORDERED: cefTRIAXone SOD 1 GM in D5W MINI-BAG PLUS 50 ML IV ONE (14:30)
[2020-10-05] MEDS ORDERED: CEFD300CAP PO (16:04)
[2020-10-05 16:15] VITALS: BP 145/83
== END 2020-10-05 16:33 | disposition home or self-care (01) ==
LOC: M ED 12:32
DX: N10 Acute pyelonephritis (principal); N13.6 Pyonephrosis; E11.9 Type 2 diabetes mellitus without complications; R68.0 Hypothermia, not associated with low environmental temperature; Z87.442 Personal history of urinary calculi; Z91.041 Radiographic dye allergy status; Z88.2 Allergy status to sulfonamides; Z88.5 Allergy status to narcotic agent; Z88.1 Allergy status to other antibiotic agents; Z91.040 Latex allergy status; Z91.018 Allergy to other foods
CPT/HCPCS: 74176; 80048; 80076; 81001; 83605; 83690; 85025; 87040; 87088; 87184; 96365; 96375; 99284; J0696; J2405

== ENCOUNTER → 2020-10-28 | Outpatient (CLI) | payer OTHER ==
[~2020-10-28] MED LIST changes: +CEFD300CAP PO; +ISOVUE-300 61% 50ML VIAL As Ordered ONE; +LIDOCAINE 1% MDV 20ML VIAL As Ordered ONE; +ceFAZolin 1GM VIAL (J0690 PER 500MG) As Ordered ONE; +diphenhydrAMINE 50MG/ML VIAL (J1200) As Ordered ONE; +hydrALAZINE 20MG/ML 1ML VIAL (J0360 PER 20MG) As Ordered ONE
--- NOTE | 2020-10-28 12:13 | IRHP ---
[facility] IR Pre-Procedure H & P General Date of Service: Oct 28, 2020 Procedure: Same Day Surgery Interval History and Physical I have seen the patient and reviewed last H & P performed within 30 days. There is no significant interval change. History of Present Illness Chief Complaint The patient is a 55-year-old female admitted with a reason for visit of Ureteral Stone. PRE-PROCEDURE DIAGNOSIS: ureteral stone HEART: normal rate. LUNGS: normal breathing at rest. ASA Classification ASA Classification: III-Severe systemic dis. Mallampati Score: II NPO: Yes Problems with prior sedation: No Obstructive Sleep Apnea: No Plan moderate sedation Allergies Coded Allergies: Contrast Media (Verified Allergy, Severe, SOB/RASH, 10/23/19) banana (Verified Allergy, Severe, SOB, 10/23/19) Kiwi (Verified Allergy, Intermediate, HIVES, 10/23/19) Sulfa (Sulfonamide Antibiotics) (Verified Allergy, Intermediate, HIVES, 09/16/19) codeine (Verified Allergy, Intermediate, N/V, HIVES, 10/23/19) latex (Verified Allergy, Intermediate, RASH, 09/16/19) erythromycin base (Verified Allergy, Unknown, HIVES, 10/23/19) levofloxacin (Verified Allergy, Unknown, RASH/SOB, 10/23/19) sulfamethoxazole (Verified Allergy, Unknown, HIVES, 10/23/19) trimethoprim (Verified Allergy, Unknown, HIVES, 10/23/19) shellfish derived (Verified Adverse Reaction, Intermediate, BURNING TONGUE, 10/23/19) ertapenem (Verified Adverse Reaction, Unknown, N/V, 10/23/19) morphine (Verified Adverse Reaction, Unknown, HALLUCINATIONS, 10/23/19) Home Medications Scheduled Multivit-Minerals/Folic Acid (Adult Multivitamin Gummies), 1 CHW PO QHS, (Reported) Scheduled PRN Metformin HCl (Metformin HCl), 500 MG PO BID PRN for HIGH BLOOD SUGAR, (Reported) Discontinued Medications Cefdinir (Cefdinir), 1 CAP PO BID Discontinued Reason: Family states not taking Durable Medical Equipment [dressing change ], (DME) VS, I&O, 24H, Fishbone Vital Signs/I&O Vital Signs Date Time Temp Pulse Resp B/P (MAP) Pulse Ox O2 Delivery O2 Flow Rate FiO2 10/28/20 11:45 96.8 119 16 98 Room Air RIKI DE LA ROSA MD Oct 28, 2020 12:13
[2020-10-28 15:30] VITALS: BP 138/72
--- NOTE | 2020-10-30 09:34 | POST-OPPD ---
Postoperative Procedure Note Date Of Procedure: Oct 28, 2020 Time Of Procedure: 16:00 IR Nephrostomy to internal/external nephroureteral stent conversion. IR Nephrostogram and ureterogram. Clinical information: Ureteral stones. Ureteral strictures. Left ureteral occlusion. Nephrostomy dependent. Physician: Dr. Zelaya. Procedure: The patient was advised of the benefits, risks and alternatives of the procedure and informed consent was obtained. The time-out was performed with verification of the patient's name, MRN, site of procedure and type of procedure to be performed. The patient was positioned in the prone position on the angiographic table. The site was prepped and draped i n the usual sterile fashion. Moderate sedation was not performed as patient has history of malignant hyperthermia. Patient was premedicated with steroids and Benadryl for contrast allergy. The physician spent 60 minutes of continuous face to face time with the patient. A meter engineer radiograph reveals a left nephrostomy catheter which is uncoiled and retracted. A Glidewire was advanced through the existing left nephrostomy catheter into the left renal pelvis. The catheter was removed over the wire. A glide catheter was advanced over the wire into the left renal pelvis. A nephrostogram was performed which demonstrates successful catheterization of the left renal pelvis and dilated calyces. A ureterogram was performed which demonstrates complete occlusion of the mid ureter. The catheter was removed over the wire. A 5 [place]an Ansell sheath was advanced over the wire, under fluoroscopy guidance into the left renal pelvis. The catheter and wire were then used to catheterize the left proximal ureter. Under fluoroscopy guidance, the wire and catheter were manipulated down the ureter and used to recanalize the occluded left ureter, all the way down to the bladder. Intermittent injection of contrast confirms intraureteral location. No extravasation. The catheter and wire were used to recanalize the occluded ureter and the stenosed uretero vesicular junction. Injection of contrast confirm location within the bladder. The catheter and sheath were then removed over the wire. A 10 [place]an nephroureteral internal/external stent was then advanced over the wire, under fluoroscopy guidance. The stent was advanced through the renal pelvis, down the ureter and into the bladder. The proximal and distal pigtails were formed. Injection of contrast confirmed location within the renal collecting system and bladder. No extravasation. The catheter was secured with Prolene and capped to drain internally as a stent. A sterile dressing was applied to the site. The patient tolerated the procedure well and was returned to the PRU in stable condition. EBL: Less than 5 ml. Complications: None. Conclusion: 1. Nephrostogram and ureterogram demonstrate dilated left collecting system and Midureteral occlusion. 2. Successful left nephrostomy tube to internal/external nephroureteral stent conversion. Patient to return in 3 months for routine stent exchange. 3. Patient would like to receive stone treatment close to home. We'll refer to [facility] urology for stone treatment. Thank you this referral. CC RIKI Tovar MD Oct 30, 2020 09:34
== END ==
LOC: M IRPRO 11:25
PROVIDERS: ATTEND Radiology Diagnostic Radiology
DX: N20.1 Calculus of ureter (principal); N13.5 Crossing vessel and stricture of ureter without hydronephrosis; Z79.84 Long term (current) use of oral hypoglycemic drugs; Z88.1 Allergy status to other antibiotic agents; Z88.2 Allergy status to sulfonamides; Z88.5 Allergy status to narcotic agent; Z88.8 Allergy status to other drugs, medicaments and biological substances; Z91.013 Allergy to seafood; Z91.018 Allergy to other foods; Z91.040 Latex allergy status; Z91.041 Radiographic dye allergy status
CPT/HCPCS: 50693; C1769; C1887; C1894; C2625; J0360; J0690; J1200; Q9967

== ENCOUNTER → 2021-01-26 | Outpatient (POV) | payer OTHER ==
[~2021-01-26] MED LIST changes: -ISOVUE-300 61% 50ML VIAL As Ordered ONE; -LIDOCAINE 1% MDV 20ML VIAL As Ordered ONE; -ceFAZolin 1GM VIAL (J0690 PER 500MG) As Ordered ONE; -diphenhydrAMINE 50MG/ML VIAL (J1200) As Ordered ONE; -hydrALAZINE 20MG/ML 1ML VIAL (J0360 PER 20MG) As Ordered ONE
--- NOTE | 2021-02-01 12:32 | IRPN ---
[facility] IR Progress Note IR Progress Note DATE: Jan 26, 2021 Patient agreed to this telephone follow-up. I spent 10 minutes talking to the patient. FOLLOW-UP: 55-year-old female with chronic left ureteral stones and strictures previously managed with stents, now has a left nephroureteral stent catheter in place for ureteral occlusion. Patient states she is doing well with the nephroureteral catheter. She flushes it once a day. No fevers or chills. No back pain. She would like her stent internalized completely. We discussed this would mean she would have to follow up with urology every 3 months for cystoscopy and ureteral stent exchange. Patient is agreeable to do this. She does have contrast allergy which requires premedication and she does have malignant hyperthermia and has had previous urologic procedures under spinal anesthesia. IMPRESSION: 55-year-old female with left ureteral strictures and occlusions with left nephroureteral catheter. Patient would like complete internalization of her stent. I discussed the case with Dr. Virginia Stafford and she is happy to take over her care after internalization for ongoing ureteral stent exchanges by urology. Patient is scheduled for IR nephroureteral to double-J stent conversion. Thank you for this referral. Cc Dr. Virginia Stafford Allergies Coded Allergies: Contrast Media (Verified Allergy, Severe, SOB/RASH, 10/23/19) banana (Verified Allergy, Severe, SOB, 10/23/19) Kiwi (Verified Allergy, Intermediate, HIVES, 10/23/19) Sulfa (Sulfonamide Antibiotics) (Verified Allergy, Intermediate, HIVES, 09/16/19) codeine (Verified Allergy, Intermediate, N/V, HIVES, 10/23/19) latex (Verified Allergy, Intermediate, RASH, 09/16/19) erythromycin base (Verified Allergy, Unknown, HIVES, 10/23/19) levofloxacin (Verified Allergy, Unknown, RASH/SOB, 10/23/19) sulfamethoxazole (Verified Allergy, Unknown, HIVES, 10/23/19) trimethoprim (Verified Allergy, Unknown, HIVES, 10/23/19) shellfish derived (Verified Adverse Reaction, Intermediate, BURNING TONGUE, 10/23/19) ertapenem (Verified Adverse Reaction, Unknown, N/V, 10/23/19) morphine (Verified Adverse Reaction, Unknown, HALLUCINATIONS, 10/23/19) RIKI DE LA ROSA MD Feb 01, 2021 12:31
== END ==
LOC: M TMIRPOV 10:46
PROVIDERS: ATTEND Radiology Diagnostic Radiology
DX: Z96.0 Presence of urogenital implants (principal); Z87.442 Personal history of urinary calculi; Z88.1 Allergy status to other antibiotic agents; Z88.2 Allergy status to sulfonamides; Z88.5 Allergy status to narcotic agent; Z88.8 Allergy status to other drugs, medicaments and biological substances; Z91.013 Allergy to seafood; Z91.018 Allergy to other foods; Z91.040 Latex allergy status; Z91.041 Radiographic dye allergy status

== ENCOUNTER → 2021-01-29 | Outpatient (CLI) | payer OTHER ==
--- NOTE | 2021-01-29 10:21 | REP ---
INDICATION: KIDNEY STONES, FLANK PAIN COMPARISON: 10/05/2020 TECHNIQUE: Axial noncontrast images from the lung bases to the pubic symphysis with coronal and sagittal reformations. This CT examination was performed using the following dose reduction techniques: Automated exposure control, adjustment of mA and/or kv according to the patient's size, and use of iterative reconstruction technique. FINDINGS: The left kidney demonstrates percutaneous nephrostomy/ureteral stent with pigtail in a major calyx and extension via the left ureter into the bladder in satisfactory position. Associated small amounts of gas are identified in the left renal collecting system and the overall appearance is improved as compared to prior examination with significantly decreased hydroureteronephrosis and small punctate 4 mm nonobstructing nephrolith. The right kidney is relatively stable and again demonstrates a large staghorn calculus within the posterior calices beginning to extend into the renal pelvis as well as small amounts of gas in the collecting system possibly related to prior manipulation. No right-sided obstructing ureteral calculus identified. Mild bilateral perinephric stranding is appreciated and appears chronic. Bladder is unremarkable. Liver, spleen, pancreas, gallbladder, and bilateral adrenal glands are normal by noncontrast evaluation. The enteric system suggests moderate fecal stasis without obstruction or acute inflammatory process. Sigmoid diverticulosis noted without acute diverticulitis. Further evaluation of the pelvis demonstrates bladder as described above along with mildly prominent uterus/adnexa suggesting the possibility of myomatous changes. No pelvic fluid or ascites. No free air. No adenopathy. No acute inflammatory stranding. Abdominal aorta without aneurysm. Musculoskeletal structures demonstrate degenerative changes. Lung bases are stable including 16 mm noncalcified right middle lobe nodule. IMPRESSION: 1. Changes of the bilateral kidneys as described above including relatively improved appearance to the left kidney. No obvious acute urinary tract findings identified and correlation with urinalysis is recommended. 2. Diverticulosis without acute diverticulitis. 3. No further acute abdominopelvic pathology appreciated. 4. Stable 16 mm noncalcified nodule in the visualized right middle lobe of the lung. <Electronically signed by Tyrone Ramirez > 01/29/21 [id number]
== END ==
LOC: M RAD 09:33
PROVIDERS: ATTEND Specialist
DX: N20.0 Calculus of kidney (principal)

== ENCOUNTER → 2021-02-22 | Outpatient (CLI) | payer OTHER ==
[~2021-02-22] MED LIST changes: +FLUCONAZOLE 50MG TABLET PO ONE; +ISOVUE-300 61% 50ML VIAL As Ordered ONE; +LIDOCAINE 1% MDV 20ML VIAL As Ordered ONE; +LISI-898 PO; +MIDAZOLAM INJ 2MG/2ML VIAL (J2250 PER 1MG) As Ordered ONE; +ceFAZolin 1GM VIAL (J0690 PER 500MG) As Ordered ONE; +diphenhydrAMINE 50MG/ML VIAL (J1200) As Ordered ONE; +fentaNYL 100 MCG/2 ML INJECTION (J3010) As Ordered ONE
[2021-02-22 13:20] LABS: HEMOGLOBIN 13.8 g/dl (12.0-15.5); MEAN CORPUSCULAR HEMOGLOBIN 29.7 pg (27.0-33.0); MEAN CORPUSCULAR HGB CONC 33.7 g/dl (32.0-36.5); MEAN CORPUSCULAR VOLUME 88.4 fl (80.0-96.0); PLATELET COUNT, AUTOMATED 290 10^3/uL (150-450); RED BLOOD COUNT 4.64 10^6/uL (4.00-5.40); WHITE BLOOD COUNT 7.4 10^3/uL (4.0-10.0)
[2021-02-22 13:31] LABS: BLOOD UREA NITROGEN 22 MG/DL (7-18); CALCIUM LEVEL 9.8 MG/DL (8.5-10.1); CARBON DIOXIDE LEVEL 33 MEQ/L (21-32); CHLORIDE LEVEL 98 MEQ/L (98-107); CREATININE FOR GFR 0.81 MG/DL (0.55-1.30); GLOMERULAR FILTRATION RATE > 60.0 (>51); GLUCOSE, FASTING 324 MG/DL (70-100); POTASSIUM SERUM 4.4 MEQ/L (3.5-5.1); SODIUM LEVEL 134 MEQ/L (136-145)
[2021-02-22 13:38] LABS: INR 0.91; PROTHROMBIN TIME 12.4 SECONDS (12.5-14.3)
[2021-02-22 15:25] VITALS: BP 144/96
--- NOTE | 2021-02-25 16:04 | IRPON ---
IR Postoperative Note Date Of Procedure: Feb 22, 2021 Time Of Procedure: 15:59 IR Postoperative Note IR Left nephro ureteral catheter exchange. Clinical Information:Patient with history of kidney stones and prior stents. Left nephroureteral catheter dependent due to ureteral stenosis. Patient no longer wishes to go undergo internalization and conversion to internal stent as she does not wish to have cystoscopic stent exchanges. Therefore, routine nephroureteral catheter exchange will be performed today. Physician: Dr. Zelaya. Procedure: The patient was advised of the benefits, risks, and alternatives of the procedure and informed consent was obtained. A time out was performed with verification of the patient's name, MRN, site of procedure, and type of procedure to be performed. The patient was positioned in the supine position on the angiographic table. The site was prepped and draped in the usual sterile fashion. Moderate sedation was not performed per patient request due to history of malignant hyperthermia. The physician spent 45 minutes of continuous [id number] time with the patient. A assembly machine tender radiograph reveals left nephroureteral catheter in expected location. A nephrostogramwas performed and this demonstrates left hydronephrosis. An amplatz wire was advanced through the existing stent under fluoroscopic guidance, into the bladder and the stent was removed over the wire. A new 10 Chinese size 26 cm internal/external nephro ureteral stent was advanced over the wire, and positioned with the proximal pigtail in the renal pelvis and distal pigtail in the bladder. The catheter was formed and secured. A repeat nephrostogram was performed confirming positioning of proximal pigtail in the renal collecting system and distal pigtail in the bladder.The catheter was flushed and capped. The patient tolerated the procedure well and was returned to the PRU in stable condition. EBL: < 5 mL. Complications: None. Conclusion: Successful left internal/external nephroureteral stent exchange. The patient should return in 12 weeks for routine exchange. Thank you for this referral. Cc Dr. Virginia Stafford. RIKI ZELAYA MD Feb 25, 2021 16:04
== END ==
LOC: M IRPRO 11:31
PROVIDERS: ATTEND Radiology Diagnostic Radiology
DX: N13.1 Hydronephrosis with ureteral stricture, not elsewhere classified (principal)
CPT/HCPCS: 50435; 80048; 85027; 85610; C1769; C1887; C2625; J0690; Q9967

== ENCOUNTER → 2021-03-02 | Outpatient (REF) | payer OTHER ==
[~2021-03-02] MED LIST changes: -FLUCONAZOLE 50MG TABLET PO ONE; -ISOVUE-300 61% 50ML VIAL As Ordered ONE; -LIDOCAINE 1% MDV 20ML VIAL As Ordered ONE; -MIDAZOLAM INJ 2MG/2ML VIAL (J2250 PER 1MG) As Ordered ONE; -ceFAZolin 1GM VIAL (J0690 PER 500MG) As Ordered ONE; -diphenhydrAMINE 50MG/ML VIAL (J1200) As Ordered ONE; -fentaNYL 100 MCG/2 ML INJECTION (J3010) As Ordered ONE
== END ==
LOC: M LAB REF 15:58
PROVIDERS: ATTEND Pediatrics
DX: N20.0 Calculus of kidney (principal)

== ENCOUNTER → 2021-05-14 | Outpatient (CLI) | payer OTHER ==
[~2021-05-14] MED LIST changes: +TRUL0.5I SC
== END ==
LOC: M LABSMTC 10:03
PROVIDERS: ATTEND Anesthesiology
DX: Z01.818 Encounter for other preprocedural examination (principal); Z11.52 Encounter for screening for COVID-19

== ENCOUNTER 2021-05-17 11:30 | Inpatient (IN) | payer OTHER ==
[~2021-05-17] VITALS: Ht 170.2 cm; Wt 141.2 kg
[2021-05-17] MEDS ORDERED: ceFAZolin 1GM VIAL (J0690 PER 500MG) As Ordered ONE (11:42)
[2021-05-17] MEDS ORDERED: NS 1,000 ML IV SCH (11:45)
[2021-05-17] MEDS ORDERED: ceFAZolin SOD 1 GM in D5W MINI-BAG PLUS 50 ML IV ONE (11:45)
[2021-05-17] MEDS ORDERED: LIDOCAINE 1% MDV 20ML VIAL As Ordered ONE (11:49)
[2021-05-17] MEDS ORDERED: ISOVUE-300 61% 50ML VIAL As Ordered ONE (11:49)
[2021-05-17] MEDS ORDERED: fentaNYL 100 MCG/2 ML INJECTION (J3010) As Ordered ONE (11:51)
[2021-05-17] MEDS: NS 1,000 ML IV SCH (12:30)
[2021-05-17 12:40] LABS: HEMATOCRIT 38.7 % (36.0-47.0); HEMOGLOBIN 12.5 g/dl (12.0-15.5); MEAN CORPUSCULAR HEMOGLOBIN 28.7 pg (27.0-33.0); MEAN CORPUSCULAR HGB CONC 32.3 g/dl (32.0-36.5); MEAN CORPUSCULAR VOLUME 88.8 fl (80.0-96.0); PLATELET COUNT, AUTOMATED 318 10^3/uL (150-450); RED BLOOD COUNT 4.36 10^6/uL (4.00-5.40); WHITE BLOOD COUNT 6.4 10^3/uL (4.0-10.0)
[2021-05-17] MEDS ORDERED: ONDANSETRON 4MG/2ML VIAL As Ordered ONE (15:25)
[2021-05-17] MEDS ORDERED: VANCOMYCIN HCL 1,000 MG, VIAL MATE ADAPTER 1 EACH in NS 250 ML IV STA (16:06)
[2021-05-17] MEDS ORDERED: PIPERACILLIN/TAZOBACTAM SOD 3.375 GM in D5W MINI-BAG PLUS 50 ML IV STA (16:06)
[2021-05-17] MEDS ORDERED: MEPERIDINE INJ 25 MG/ML VIAL (J2175) IM ONE (16:10)
[2021-05-17] MEDS ORDERED: VANCOMYCIN 1000MG/20ML VIAL As Ordered ONE (16:18)
[2021-05-17] MEDS ORDERED: NS 2,000 ML IV ONE (16:30)
[2021-05-17] MEDS ORDERED: ACETAMINOPHEN TAB 650MG DOSE (2X325MG) PO PRN (17:35)
[2021-05-17 18:30] VITALS: BP 176/85
--- NOTE | 2021-05-17 18:56 | HPEPDOC ---
General Date of Admission May 17, 2021 Date of Service: May 17, 2021 Chief Complaint The patient is a 56-year-old female admitted with a reason for visit of Ureteral Stricture. History of Present Illness Mrs. Allison is a 56 year old female with nephrolithiasis, ureteral strictures, and staghorn calculus who is here for left nephrostomy exchange and new right nephrostomy, but then became hypotensive and had a low grade temperature after procedure. Patient has a right staghorn calculus and being followed by urology. Urology is planning for lithotripsy and stone retrieval on Monday. Prior to lithotripsy, Dr. Zelaya was replacing the left nephrostomy tube and inserting a new right nephrostomy tube. Patient has history of malignant hyperthermia, so patient had local anesthesia with lidocaine. Post surgery, patient started to feel unwell. Patient's SBP dropped from 130s initially to 80s, then 63. Patient had a temperature of 99, which per the patient, was her fever. Patient was given 2L of fluid and the blood pressure improved. Patient also given vancomycin and Zosyn. When I saw her, she was feeling better and very conversive. Denies chest pain, dyspnea, or abdominal pain. Patient will be placed in observation for hypotension post surgery. Home Medications Scheduled Dulaglutide (Trulicity) 1.5 Mg/0.5 Ml Pen.injctr, 1.2 MG SC QWEDNESDAY, (Reported) Multivit-Minerals/Folic Acid (Adult Multivitamin Gummies) 1 Chw Chw, 1 CHW PO DAILY, (Reported) Allergies Coded Allergies: Contrast Media (Verified Allergy, Severe, SOB/RASH, 05/05/21) banana (Verified Allergy, Severe, SOB, 05/05/21) Kiwi (Verified Allergy, Intermediate, HIVES, 05/05/21) Sulfa (Sulfonamide Antibiotics) (Verified Allergy, Intermediate, HIVES, SOB, 05/05/21) codeine (Verified Allergy, Intermediate, N/V, HIVES, 05/05/21) latex (Verified Allergy, Intermediate, RASH, 05/05/21) insulin lispro (Verified Allergy, Mild, 05/17/21) blindness erythromycin base (Verified Allergy, Unknown, HIVES, and muscle cramps, 05/05/21) levofloxacin (Verified Allergy, Unknown, RASH/SOB, 05/05/21) sulfamethoxazole (Verified Allergy, Unknown, HIVES, 05/05/21) trimethoprim (Verified Allergy, Unknown, HIVES, 05/05/21) shellfish derived (Verified Adverse Reaction, Intermediate, BURNING TONGUE, 05/05/21) ertapenem (Verified Adverse Reaction, Unknown, N/V, 05/05/21) morphine (Verified Adverse Reaction, Unknown, HALLUCINATIONS, 05/05/21) Past Medical History Medical History 1. Metabolic syndrome 2. History of hypoglycemia 3. History of hypothyroidism 4. PCOS 5. Nephrolithiasis 6. Asthma 7. 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 Lithotripsy in 1999 and 2007 2. Endometrial biopsy - Benign 3. 4. Moles removed from left arm and chest - Benign 5. Kidney stone basket retrieval 2017 6. Left nephrostomy tube replaced in 08/2020 7. Placing kidney stent in 10/2020 Family History Father: History of nephrolithiasis Mother: History of DM, nephrolithiasis, and goiter Social History * Smoker: non-smoker Alcohol: rarely Drugs: denies A-FIB/CHADSVASC A-FIB History Current/History of A-Fib/PAF?: No Review of Systems Constitutional: Reports: Fever, Malaise Eyes: Reports: Other (Blindness n right eye) ENT: Denies: Sore Throat Skin: Denies: Rash Pulmonary: Denies: Dyspnea Cardiovascular: Denies: Chest Pain Gastrointestinal: Denies: Abdominal Pain Genitourinary: Denies: Dysuria Hematologic: Denies: Bruising Neurological: Denies: Numbness Psych: Denies: Anxiety, Depression Physical Examination General Exam: Positive: Alert, Cooperative Eye Exam: Positive: EOMI, Other Eye Symptoms (Right pupil larger than left pupil); Negative: Sclera icteric Neck Exam: Positive: Supple Chest Exam: Positive: Clear to auscultation; Negative: Rales, Rhonchi, Wheezing Heart Exam: Positive: Tachycardic, Regular Rhythm Abdomen Exam: Positive: Normal bowel sounds, Soft; Negative: Tenderness Extremity Exam: Positive: Edema (mild bilateral pitting edema) Neuro Exam: Positive: Cranial Nerves 3-12 NL Psych Exam: Positive: Mental status NL, Mood NL Vital Signs Vital Signs Date Time Temp Pulse Resp B/P (MAP) Pulse Ox O2 Delivery O2 Flow Rate FiO2 05/17/21 15:45 109 18 92 Room Air 05/17/21 14:45 2.0 05/17/21 11:41 96.9 Laboratory Data Labs 24H Laboratory Tests 2 05/17/21 12:14: Nucleated Red Blood Cells % (auto) 0.0 CBC/BMP Laboratory Tests 05/17/21 12:14 Assessment/Plan Mrs. Allison is a 56 year old female with nephrolithiasis, ureteral strictures, and staghorn calculus who is here for left nephrostomy exchange and new right nephrostomy, but then became hypotensive and had a low grade temperature after procedure. Patient may have had transient bacteremia from the procedure vs becoming septic. Will order CBC, BMP, lactic acid, blood cultures x2, and UA to evaluate. Plan / VTE VTE Prophylaxis Ordered?: Yes Plan Plan 1. Hypotension and low grade temperature post procedure -SBP dropped to the 60s and temperature increased to 99 deg F -Patient is tachycardic -Received 2L of NS and Vancomycin and Zosyn -Urine culture from 03/02/21 grew E.coli -Suspecting urine source since it was a urological procedure. Will switch to ceftriaxone at this time. -Otherwise, ordered CXR, UA, and Blood cultures x2 2. Metabolic syndrome -Patient is on Trulicity every Monday -Carbohydrate consistent diet 3. Right staghorn calculus -Right nephrostomy tube in pace 4. DVT ppx -SCD and TEDs Disposition: Pending labs and clinical improvement LISA METZ DO May 17, 2021 18:56
--- NOTE | 2021-05-17 19:12 | REP ---
INDICATION: hypotension, low grade temp. COMPARISON: Comparison chest x-ray May 08, 2007. TECHNIQUE: Portable upright AP chest radiograph. FINDINGS: Patient is rotated slightly to the left. There is widening of the left side of the mediastinum which may reflect anterior mediastinal fat. It is difficult to exclude adenopathy. The aorta is slightly tortuous. Heart size is borderline. Pulmonary vasculature is not increased. The pleural angles are sharp. No definite infiltrate.. IMPRESSION: Left-sided mediastinal widening. Question technique. Recommend PA and lateral views of the chest be obtained when the patient clinical condition will allow. Chest CT scanning may be warranted.. <Electronically signed by Bakari Becerril > 05/17/21 [id number]
[2021-05-17 19:20] LABS: HEMOGLOBIN 12.8 g/dl (12.0-15.5); MEAN CORPUSCULAR HEMOGLOBIN 29.2 pg (27.0-33.0); MEAN CORPUSCULAR HGB CONC 32.8 g/dl (32.0-36.5); MEAN CORPUSCULAR VOLUME 88.8 fl (80.0-96.0); PLATELET COUNT, AUTOMATED 300 10^3/uL (150-450); RED BLOOD COUNT 4.39 10^6/uL (4.00-5.40); WHITE BLOOD COUNT 13.5 10^3/uL (4.0-10.0)
[2021-05-17 19:33] LABS: INR 0.99; PROTHROMBIN TIME 13.3 SECONDS (12.5-14.3)
[2021-05-17 19:34] LABS: PARTIAL THROMBOPLASTIN TIME 27.5 SECONDS (24.2-38.5)
[2021-05-17 19:54] LABS: ALBUMIN 3.5 GM/DL (3.2-5.2); ALT/SGPT 24 U/L (12-78); BILIRUBIN,TOTAL 0.5 MG/DL (0.2-1.0); BLOOD UREA NITROGEN 17 MG/DL (7-18); CALCIUM LEVEL 8.9 MG/DL (8.5-10.1); CARBON DIOXIDE LEVEL 25 MEQ/L (21-32); CHLORIDE LEVEL 107 MEQ/L (98-107); CREATININE FOR GFR 0.83 MG/DL (0.55-1.30); GLOMERULAR FILTRATION RATE > 60.0 (>51); GLUCOSE, FASTING 215 MG/DL (70-100); POTASSIUM SERUM 4.1 MEQ/L (3.5-5.1); SODIUM LEVEL 139 MEQ/L (136-145); TOTAL PROTEIN 7.1 GM/DL (6.4-8.2)
[2021-05-17 20:00] VITALS: BP 124/77
--- NOTE | 2021-05-17 22:00 | REPVR ---
PROCEDURE INFORMATION: Exam: CT Chest Without Contrast; Diagnostic Exam date and time: 05/17/2021 8:14 PM Age: 56 years old Clinical indication: Abnormal findings; Abnormal radiologic exam of lung or chest; Additional info: Left sided mediastinal widening on cxr TECHNIQUE: Imaging protocol: Diagnostic computed tomography of the chest without contrast. 3D rendering (Not supervised by radiologist): MIP and/or 3D reconstructed images were created by the technologist. Radiation optimization: All CT scans at this facility use at least one of these dose optimization techniques: automated exposure control; mA and/or kV adjustment per patient size (includes targeted exams where dose is matched to clinical indication); or iterative reconstruction. COMPARISON: 1. CT Chest without contrast 05/01/2019 11:[address] ABD/PELVIS W/O CONTRAST - OUTSIDE PRIOR 10/01/2018 12:00:00 AM FINDINGS: Thyroid: There is a partially imaged nodule measuring 3.2 cm in anterior to posterior dimension in the right lobe of the thyroid gland. The thyroid was not fully imaged. Trachea: Normal. Bronchial tree: Normal. Lungs: There are 5 mm and 15 mm solid pulmonary nodules in the right middle lobe, which are stable compared to the prior CT chest on 05/01/[address] abdomen and pelvis on 10/01/2018 and for which follow-up imaging is not necessary (images 55 and 61 of the axial series 201). No new pulmonary nodules are noted. There is atelectasis in the lingula. No lung consolidation is noted. Pleural spaces: Normal. No pneumothorax or pleural effusion. Normal. No pneumothorax or pleural effusion. Heart: The heart is mildly enlarged. Extensive mitral annular calcifications are present. No pericardial effusion. Mediastinal space: The left mediastinal widening described in the chest x-ray on 05/17/2020 is secondary to anteriorly mediastinal fat. Aorta: There is no thoracic aortic aneurysm or intramural hematoma. There are mild atherosclerotic calcifications. Lymph nodes: There is a 12 mm right paratracheal lymph node and a 12 mm prevascular lymph node, which are stable compared to prior CT chest on 05/01/2019. Other subcentimeter mediastinal lymph nodes are present. Liver: There is a calcified granuloma in superior aspect of the right hepatic lobe, which is stable compared to prior CT chest on 05/01/2019. The liver was not fully imaged. Adrenal glands: Normal. No adrenal mass is noted. Bones/joints: There is no fracture or dislocation. No suspicious osteolytic or osteoblastic lesion. There are degenerative changes involving the thoracic spine. Soft tissues: Unremarkable. No soft tissue fluid collection. IMPRESSION: 1. The left mediastinal widening described in the chest x-ray on 05/17/2020 is secondary to anteriorly mediastinal fat. 2. 3.2 cm partially imaged nodule in the right lobe of thyroid gland. See management guidelines below. 3. 5 mm and 15 mm solid pulmonary nodules in the right middle lobe, which are stable compared to the prior CT chest on 05/01/[address] abdomen and pelvis on 10/01/2018 and for which follow-up imaging is not necessary. 4. Right paratracheal and prevascular lymphadenopathy, which is stable compared to the prior CT chest on 05/01/2019. COMMENTS: Consistent with the [employer]'s Incidental Findings Committee white paper (J Am Joey Radiol 2015): In patients aged 35 years and older with an incidental thyroid nodule equal to or greater than 1.[address], MRI or extrathyroidal US, further evaluation with dedicated thyroid US is recommended for patients with normal life expectancy and without comorbidities. For smaller nodules without suspicious features, no further evaluation or follow up is recommended. Electronically signed by: Higinio Khan On 05/17/2021 22:00:22 PM
--- NOTE | 2021-05-17 23:16 | ECGEPIP ---
[facility] Test Date: 2021-05-17 Pat Name: RALF MARION Department: Room: - Gender: Female Prospecting Driller: RAFY : 1965 Requested By: LISA Moreno Order Number: [id number] Reading MD: Robbi Vaca Measurements Intervals [place] Rate: 115 P: 30 IL: 186 QRS: -11 QRSD: 88 T: 20 QT: 322 QTc: 445 Interpretive Statements Sinus tachycardia Low voltage QRS (Precordial leads) Poor R wave progression. Electronically Signed on 05-17-2021 23:15:51 EDT by Robbi Vaca
[2021-05-17] MEDS: cefTRIAXone SOD 1 GM in D5W MINI-BAG PLUS 50 ML IV SCH (23:39)
[2021-05-18] VITALS (7 sets, daily range): BP systolic 131–185; BP diastolic 68–99
[2021-05-18] MEDS: NS 1,000 ML IV SCH (01:03)
[2021-05-18] MEDS ORDERED: ONDANSETRON 4MG/2ML VIAL IV PRN (05:10)
[2021-05-18] MEDS ORDERED: NORCO, ANEXSIA 5/325MG TABLET (HYDROcodone/ACETAMINOPHEN) PO ONE (05:10)
[2021-05-18 06:13] LABS: BASO # 0.1 10^3/uL (0.0-0.2); BASO % 0.6 % (0.0-1.0); EOS # 0.3 10^3/uL (0.0-0.5); EOS % 2.9 % (0.0-3.0); HEMATOCRIT 37.7 % (36.0-47.0); HEMOGLOBIN 12.1 g/dl (12.0-15.5); LYMPH # 0.7 10^3/uL (1.5-5.0); LYMPH % 7.6 % (24.0-44.0); MEAN CORPUSCULAR HEMOGLOBIN 28.5 pg (27.0-33.0); MEAN CORPUSCULAR HGB CONC 32.1 g/dl (32.0-36.5); MEAN CORPUSCULAR VOLUME 88.7 fl (80.0-96.0); MONO # 0.7 10^3/uL (0.0-0.8); MONO % 7.2 % (2.0-8.0); NEUTROPHILS # 7.9 10^3/uL (1.5-8.5); NEUTROPHILS % 81.1 % (36.0-66.0); PLATELET COUNT, AUTOMATED 287 10^3/uL (150-450); RED BLOOD COUNT 4.25 10^6/uL (4.00-5.40); WHITE BLOOD COUNT 9.7 10^3/uL (4.0-10.0)
[2021-05-18 06:46] LABS: BLOOD UREA NITROGEN 17 MG/DL (7-18); CALCIUM LEVEL 9.3 MG/DL (8.5-10.1); CARBON DIOXIDE LEVEL 25 MEQ/L (21-32); CHLORIDE LEVEL 106 MEQ/L (98-107); GLOMERULAR FILTRATION RATE > 60.0 (>51); GLUCOSE, FASTING 248 MG/DL (70-100); MAGNESIUM LEVEL 1.6 MG/DL (1.8-2.4); POTASSIUM SERUM 4.2 MEQ/L (3.5-5.1); SODIUM LEVEL 138 MEQ/L (136-145)
[2021-05-18] MEDS ORDERED: SLF 3 ML SYR IV PRN (08:25)
--- NOTE | 2021-05-18 08:42 | IRPON ---
IR Postoperative Note Date Of Procedure: May 17, 2021 Time Of Procedure: 16:00 IR Postoperative Note IR Percutaneous right-sided nephroureteral catheter placement using fluoroscopic and ultrasound guidance. IR Right-sided PCNL access. IR Right-sided Nephrostogram and Ureterogram. IR Left-sided nephroureteral catheter exchange. Clinical Information:Right kidney stone. Needs PCNL access. Left nephroureteral catheter dependent. Needs routine exchange. Physician: Dr. Zelaya. Procedure: The patient was advised of the benefits, risks, and alternatives of the procedure and informed consent was obtained. A time out was performed with verification of the patient's name, MRN, site of procedure, and type of procedure to be performed. The patient was positioned in the prone position on the angiographic table. The site was prepped and draped in the usual sterile fashion. The physician spent 90 minutes of continuous [id number] time with the patient. A advertising operations coordinator radiograph reveals radiopaque stone in the right kidney. Left nephroureteral catheter in place. Right-sided: The anticipated puncture site on the flank was anesthetized with lidocaine. Using fluoroscopy guidance, the right kidney stone was accessed with a 21 Gauge Chiba needle. A nephrostogram and ureterogram were performed demonstrating the stone occupies the entire upper calyx. The second 21-gauge Chiba needle was then used under fluoroscopy guidance, to access the upper pole in a shallow, more lateral trajectory. A [place] wire was then manipulated under fluoroscopy guidance, around the stone and down into the renal pelvis. The needle was then exchanged for a nonvascular introducer set which was positioned, under fluoroscopic guidance, over the wire and down into the ureter.The first needle was removed. Injection of contrast confirm location in the ureter. An Amplatz wire was then advanced into the ureter, under fluoroscopy guidance, and coiled down into the bladder. This sheath was removed over the wire. A [place] nephroureteral catheter was then advanced, over the wire and under fluoroscopy guidance, into the renal collecting system, down the ureter and into the bladder. The pigtail was formed. Repeat injection of contrast through the catheter confirms location within the urinary collecting system with no extravasation. The catheter was sutured in position with 2-0 Prolene and a sterile dressing applied. The catheter was capped. Left-sided: And initial nephrostogram and ureterogram was performed through the pre-existing nephroureteral catheter, confirming catheter location within the left renal collecting system and bladder. The catheter was cut, and an Amplatz wire passed into the catheter, under fluoroscopy guidance but could not be advanced out of the tip of the catheter due to encrustation/stone. A Glidewire and Glidewire advantage were used under fluoroscopy guidance, to pass through the tip of the catheter but still could not be passed out of the tip of the nephroureteral catheter. A Glidewire was advanced under fluoroscopic guidance, alongside the existing left nephroureteral catheter, down the ureter into the bladder. A 4 Argentine glide cath was advanced over the wire, under fluoroscopy guidance, down the ureter into the bladder. The wire was removed and injection of contrast confirmed location within the bladder. The adjacent nephroureteral stent was removed under fluoroscopy guidance. A wire was readvanced through the glide cath into the bladder and the glide cath was removed over the wire. A new 10 Argentine 26 cm Cook nephroureteral stent was advanced over the wire, under fluoroscopy guidance, through the left renal collecting system, down the ureter and into the bladder. The pigtail was formed. A Final nephrostogram and ureterogram was performed through the left nephroureteral catheter which confirms positioning within the urinary collecting system and bladder, with no extravasation. The catheter was secured in position with 2-0 Prolene in a sterile dressing was applied to site. The catheter was capped. The patient tolerated the procedure well and was returned to the PRU in stable condition. EBL: < 5 mL. Complications:None. Conclusion: 1. Successful right-sided nephroureteral access and nephroureteral catheter placement for PCNL. 2. Successful left-sided nephroureteral stent exchange. Patient to follow-up in 10 weeks for routine left-sided nephroureteral stent exchanges. Patient to follow-up with urology for right-sided PCNL. Thank you for this referral. Cc RIKI Tovar MD May 18, 2021 08:42
[2021-05-18 09:34] LABS: FREE THYROXINE INDEX 2.4 % (1.3-4.8); T UPTAKE 27 % (30-39)
[2021-05-18] MEDS: SLF 3 ML SYR IV SCH ×2 (11:19→23:11)
[2021-05-18] MEDS ORDERED: MAGNESIUM OXIDE 400MG TAB (MAG-OX) PO ONE (15:00)
[2021-05-18] MEDS ORDERED: GLUCOSE 4GM CHEW TABLET PO PRN (15:25)
[2021-05-18] MEDS ORDERED: GLUCAGON INJ 1MG VIAL SC PRN (15:25)
[2021-05-18] MEDS ORDERED: DEXTROSE 50% 50 ML SYRINGE IV PRN (15:25)
--- NOTE | 2021-05-18 15:42 | IPNPDOC ---
Text Note Date of Service The patient was seen on 05/18/21. NOTE Subjective: Patient developed low-grade fever in the morning with chills subs ided during daytime. Also patient reported urine leakage from the left nephrostomy. Objective: GENERAL APPEARANCE: NAD HEENT: no scleral icterus, no JVD, EOMI CARDIOVASCULAR: S1S2, tachycardic at the rate 105 LUNGS: CTA ABDOMEN: soft & not tender w palpitation, urine leakage around left nephrostomy MUSCULOSKELETAL: no cyanosis, no swelling INTEGUMENT: no generalized pallor NEUROLOGICAL: follows commands, speech not dysarthric Assessment/Plan Patient is a 56 year old female with nephrolithiasis, ureteral strictures, and staghorn calculus who is here for left nephrostomy exchange and new right nephrostomy, but then became hypotensive and had a low grade temperature after procedure. Patient may have had transient bacteremia from the procedure vs becoming septic. Sepsis Patient developed hypotension after procedure with systolic blood pressure dropped to 60s associated with chills. There is also possibility that chills and low-grade fever could be associated with extravasation of urine during nephrostomy placement. Today patient developed low-grade fever in the morning Patient received yesterday vancomycin and Zosyn Urine culture from 03/02/21 was positive for Escherichia coli Vancomycin and Zosyn were switched to ceftriaxone IV Await blood culture, urine culture Nephrolithiasis/right staghorn calculus Urology team will proceed with lithotripsy tomorrow Patient clear for urological procedure tomorrow Tachycardia Patient stated she has chronic tachycardia Follow-up with bakery technician in the outpatient settings Type 2 diabetes Will check HbA1c Insulin sliding scale VS,Denvere, I+O VS, Duc, I+O Laboratory Tests 05/17/21 18:43 05/18/21 05:12 Vital Signs Date Time Temp Pulse Resp B/P (MAP) Pulse Ox O2 Delivery O2 Flow Rate FiO2 05/18/21 14:50 99.3 05/18/21 11:05 104 18 131/70 (90) 96 Room Air 05/17/21 16:36 2.0 I&O- Last 24 Hours up to 6 AM 05/18/21 06:00 Intake Total 1800 ml Output Total 1550 ml Balance 250 ml VINNIE DOTSON DO May 18, 2021 15:42
[2021-05-18] MEDS ORDERED: PERCOCET 5MG/325MG TAB PO PRN (17:15)
[2021-05-18] MEDS ORDERED: HumaLOG INSULIN (NovoLOG) PER UNIT SC SCH ×2 (17:30→21:00)
[2021-05-18] MEDS ORDERED: HumuLIN R (REGULAR) INSULIN (NovoLIN R) **100U/ML** PER UNIT SC SCH ×2 (17:30→21:00)
[2021-05-18 17:35] LABS: HEMOGLOBIN A1c 8.7 %
[2021-05-18] MEDS: NORCO, ANEXSIA 5/325MG TABLET (HYDROcodone/ACETAMINOPHEN) PO PRN ×2 (18:43→18:46)
[2021-05-18 22:31] LABS: BLOOD UREA NITROGEN 14 MG/DL (7-18); CALCIUM LEVEL 8.9 MG/DL (8.5-10.1); CARBON DIOXIDE LEVEL 28 MEQ/L (21-32); CHLORIDE LEVEL 102 MEQ/L (98-107); CREATININE FOR GFR 0.88 MG/DL (0.55-1.30); GLOMERULAR FILTRATION RATE > 60.0 (>51); GLUCOSE, FASTING 294 MG/DL (70-100); SODIUM LEVEL 136 MEQ/L (136-145)
[2021-05-18] MEDS: cefTRIAXone SOD 1 GM in D5W MINI-BAG PLUS 50 ML IV SCH (23:10)
[2021-05-19 00:25] VITALS: BP 133/62
[2021-05-19 06:00] VITALS: BP 126/65
[2021-05-19 06:00] LABS: BASO % 0.5 % (0.0-1.0); EOS # 0.4 10^3/uL (0.0-0.5); EOS % 4.1 % (0.0-3.0); HEMATOCRIT 34.3 % (36.0-47.0); LYMPH # 1.3 10^3/uL (1.5-5.0); LYMPH % 14.5 % (24.0-44.0); MEAN CORPUSCULAR HEMOGLOBIN 28.5 pg (27.0-33.0); MEAN CORPUSCULAR HGB CONC 32.1 g/dl (32.0-36.5); MEAN CORPUSCULAR VOLUME 88.9 fl (80.0-96.0); MONO # 0.9 10^3/uL (0.0-0.8); MONO % 9.6 % (2.0-8.0); NEUTROPHILS # 6.3 10^3/uL (1.5-8.5); NEUTROPHILS % 70.8 % (36.0-66.0); PLATELET COUNT, AUTOMATED 232 10^3/uL (150-450); RED BLOOD COUNT 3.86 10^6/uL (4.00-5.40); WHITE BLOOD COUNT 8.8 10^3/uL (4.0-10.0)
[2021-05-19 06:31] LABS: ALT/SGPT 17 U/L (12-78); BILIRUBIN,TOTAL 0.6 MG/DL (0.2-1.0); BLOOD UREA NITROGEN 13 MG/DL (7-18); CALCIUM LEVEL 8.5 MG/DL (8.5-10.1); CARBON DIOXIDE LEVEL 30 MEQ/L (21-32); CHLORIDE LEVEL 103 MEQ/L (98-107); CREATININE FOR GFR 0.69 MG/DL (0.55-1.30); GLOMERULAR FILTRATION RATE > 60.0 (>51); GLUCOSE, FASTING 227 MG/DL (70-100); MAGNESIUM LEVEL 1.7 MG/DL (1.8-2.4); SODIUM LEVEL 137 MEQ/L (136-145); TOTAL PROTEIN 6.5 GM/DL (6.4-8.2)
[2021-05-19] MEDS: SLF 3 ML SYR IV SCH ×3 (06:31→22:00)
[2021-05-19] MEDS ORDERED: LIDOCAINE 2% 100MG/5ML SDV (FOR ANES.) ONE (07:11)
[2021-05-19] MEDS ORDERED: MIDAZOLAM INJ 2MG/2ML VIAL (J2250 PER 1MG) ONE (07:11)
[2021-05-19] MEDS ORDERED: ROCURONIUM BROMIDE 50 MG/5 ML VIAL ONE ×2 (07:13→09:14)
[2021-05-19] MEDS ORDERED: propofoL 200 MG/20 ML VIAL ONE ×3 (07:13→08:45)
[2021-05-19] MEDS ORDERED: ONDANSETRON 4MG/2ML VIAL ONE (07:15)
[2021-05-19] MEDS ORDERED: REMIFENTANIL 1MG 3ML VIAL ONE ×4 (07:23→10:41)
[2021-05-19] MEDS ORDERED: fentaNYL 100 MCG/2 ML INJECTION (J3010) ONE (07:24)
--- NOTE | 2021-05-19 07:51 | SMCUROLCON ---
Urology Consultation General Date of Consultation 05/19/21 Reason For Consultation This patient is seen for Hypotension After Procedure. History of Present Illness This is a 56 y/o F w/ a R staghorn calculus and a L nephroureteral stent for ureteral strictures, admitted to the hospital 2 days ago for hypotension and fevers after having L nephroureteral stent exchange and a R nephroureteral stent placement. She has been afebrile the last 24 hrs. She notes minimal pain. Her L nephroureteral stent was capped after her procedure and had been draining a lot around the tubing yesterday. This subsided when the tube was connected to gravity drainage. Blood cultures are negative. Urine culture is pending. No n/v. Past Medical History Medical History Hypothyroidism PCOS Kidney Stones Asthma Surgical Hstory Lithotripsy C section Endometrial Biopsy Medications Current Medications Current Medications Medications (Trade) Dose Ordered Sig/Carmita Route PRN Reason Start Time Stop Time Status Last Admin Dose Admin Acetaminophen (Tylenol Tab) 650 mg Q4H PRN PO MILD PAIN or TEMP > 101 05/17/21 17:35 05/17/21 20:04 Acetaminophen/ Hydrocodone Bitart ([place], Anexsia 5/325) 2 tab Q6HP PRN PO SEVERE PAIN (PS 8-10) 05/18/21 18:15 05/18/21 18:46 Ceftriaxone Sodium 1 gm/ Dextrose 50 ml @ 100 mls/hr Q24H IV 05/17/21 23:00 05/18/21 23:10 Dextrose (Dextrose 50%) 25 ml ASDIRECTED PRN IV SEE LABEL COMMENTS 05/18/21 15:25 Glucagon (Glucagon) 1 mg ASDIRECTED PRN SC SEE LABEL COMMENTS 05/18/21 15:25 Glucose (Glucose) 16 GM ASDIRECTED PRN PO SEE LABEL COMMENTS 05/18/21 15:25 Insulin Human Lispro (HumaLOG INSULIN) SEE PROTOCOL TABLE AC SC 05/18/21 17:30 05/18/21 15:29 DC Insulin Human Lispro (HumaLOG INSULIN) SEE PROTOCOL TABLE QHS SC 05/18/21 21:00 05/18/21 15:29 DC Insulin Human Regular (HumuLIN R INSULIN) See Protocol Table AC SC 05/18/21 17:30 05/18/21 15:59 DC Insulin Human Regular (HumuLIN R INSULIN) See Protocol Table QHS SC 05/18/21 21:00 05/18/21 15:59 DC Ondansetron HCl (ZOFRAN INJection) 4 mg Q4HP PRN IV NAUSEA OR VOMITING 05/18/21 05:10 Oxycodone/ Acetaminophen (Percocet 5mg/ 325mg Tablet) 2 tab Q6HP PRN PO SEVERE PAIN (PS 8-10) 05/18/21 17:15 05/18/21 18:13 DC Piperacillin Sod/ Tazobactam Sod 3.375 gm/Dextrose 50 ml @ 50 mls/hr STAT STAT IV 05/17/21 16:06 05/17/21 17:05 DC 05/17/21 17:45 Sodium Chloride 1,000 ml @ 75 mls/hr [id number] IV 05/17/21 11:45 05/18/21 07:24 DC 05/17/21 12:30 Sodium Chloride 1,000 ml @ 75 mls/hr [id number] IV 05/17/21 11:45 UNV Sodium Chloride (Saline Lock Flush) 2 ml ASDIRECTED PRN IV SEE LABEL COMMENTS 05/18/21 08:25 Sodium Chloride (Saline Lock Flush) 2 ml SLF IV 05/18/21 14:00 05/19/21 06:31 Vancomycin HCl 1000 mg/IV Miscellaneous Supplies 1 each/ Sodium Chloride 270 ml @ 270 mls/hr STAT STAT IV 05/17/21 16:06 05/17/21 17:05 DC 05/17/21 16:54 Allergies Allergies: Coded Allergies: Contrast Media (Verified Allergy, Severe, SOB/RASH, 05/05/21) banana (Verified Allergy, Severe, SOB, 05/05/21) levofloxacin (Verified Allergy, Severe, RASH/SOB, 05/17/21) Kiwi (Verified Allergy, Intermediate, HIVES, 05/05/21) Sulfa (Sulfonamide Antibiotics) (Verified Allergy, Intermediate, HIVES, SOB, 05/05/21) codeine (Verified Allergy, Intermediate, N/V, HIVES, 05/05/21) erythromycin base (Verified Allergy, Intermediate, HIVES, and muscle cramps, 05/17/21) latex (Verified Allergy, Intermediate, RASH, 05/05/21) sulfamethoxazole (Verified Allergy, Intermediate, HIVES, 05/17/21) trimethoprim (Verified Allergy, Intermediate, HIVES, 05/17/21) insulin lispro (Verified Adverse Reaction, Intermediate, BLINDNESS, 05/18/21) morphine (Verified Adverse Reaction, Intermediate, HALLUCINATIONS, 05/17/21) shellfish derived (Verified Adverse Reaction, Intermediate, BURNING TONGUE, 05/05/21) ertapenem (Verified Adverse Reaction, Mild, N/V, 05/17/21) Review of Systems Constitutional: Denies: Fever, Chills, Weakness Skin: Denies: Rash, Lesions, Breakdown, Nail Changes Pulmonary: Denies: Dyspnea, Cough Cardiovascular: Denies Chest Pain, Denies Palpitations Gastrointestinal: Denies: Nausea, Vomiting, Abdominal Pain Musculoskeletal: Denies: Neck Pain, Back Pain Psych: Reports: Mood Normal Physical Examination General Exam: Alert, Cooperative, No Acute Distress Chest Exam: Clear to auscultation Heart Exam: Regular Rhythm Abdomen Exam: Soft Skin Exam: Nl turgor and temperature Neuro Exam: Normal Speech Psych Exam: Mood NL Vital Signs/I&O Vital Signs Date Time Temp Pulse Resp B/P (MAP) Pulse Ox O2 Delivery O2 Flow Rate FiO2 05/19/21 06:00 98.1 105 16 126/65 (85) 93 Room Air 05/17/21 16:36 2.0 I&O- Last 24 Hours up to 6 AM 05/19/21 06:00 Intake Total 2260 ml Output Total 5145 ml Balance -2885 ml Laboratory Data 24H Labs Laboratory Tests 2 05/18/21 17:01: Bedside Glucose (Misc Panel) 207H 05/18/21 21:15: Urine Color YELLOW, Urine Appearance CLOUDYH, Urine pH 6.0, Urine Specific [place] 1.006, Urine Protein 1+H, Urine Glucose (UA) 1+H, Urine Ketones NEGATIVE, Urine Blood 3+H, Urine Nitrite NEGATIVE, Urine Bilirubin NEGATIVE, Urine Urobilinogen 0.2, Urine Leukocyte Esterase 3+H, Urine WBC (Auto) TNTCH, Urine RBC (Auto) 84H, Urine Hyaline Casts (Auto) 0, Urine Bacteria (Auto) 1+H, Urine Squamous Epithelial Cells 0, Urine Mucus (Auto) SMALL, Urine Sperm (Auto) 05/18/21 21:53: Anion Gap 6L, Glomerular Filtration Rate > 60.0, Calcium Level 8.9 05/19/21 05:08: Anion Gap 4L, Glomerular Filtration Rate > 60.0, Calcium Level 8.5, Immature Granulocyte % (Auto) 0.5, Neutrophils (%) (Auto) 70.8H, Lymphocytes (%) (Auto) 14.5L, Monocytes (%) (Auto) 9.6H, Eosinophils (%) (Auto) 4.1H, Basophils (%) (Auto) 0.5, Neutrophils # (Auto) 6.3, Lymphocytes # (Auto) 1.3L, Monocytes # (Auto) 0.9H, Eosinophils # (Auto) 0.4, Basophils # (Auto) 0.0, Nucleated Red Blood Cells % (auto) 0.0, Magnesium Level 1.7L, Total Bilirubin 0.6, Aspartate Amino Transf (AST/SGOT) 11, Alanine Aminotransferase (ALT/SGPT) 17, Alkaline Phosphatase 66, Total Protein 6.5, Albumin 3.0L, Albumin/Globulin Ratio 0.9L 05/19/21 06:18: Bedside Glucose (Misc Panel) 237H CBC/BMP Laboratory Tests 05/18/21 21:53 05/19/21 05:08 Microbiology Microbiology 05/18/21 Urine Culture, Received Pending 05/17/21 Blood Culture - Preliminary, Resulted No growth after 24 hours . All specim... 05/17/21 Blood Culture - Preliminary, Resulted No growth after 24 hours . All specim... Assessment This is a 56 y/o F w/ a R staghorn calculus and a L nephroureteral stent for ureteral strictures, admitted to the hospital 2 days ago for hypotension and fevers after having L nephroureteral stent exchange and a R nephroureteral stent placement. She has been afebrile for 24 hrs. She has been on IV abx for 48hrs. We will therefore proceed w/ the planned R percutaneous nephrolithotomy. Plan - plan for R percutaneous nephrolithotomy - informed consent signed - continue rocephin - type and screen - NPO - may resume normal diet postop TETE GOLD MD May 19, 2021 07:51
[2021-05-19] MEDS ORDERED: propofoL 500 MG/50 ML VIAL ONE ×3 (08:45→10:57)
--- NOTE | 2021-05-19 12:00 | ROOPDOC ---
[facility] Report Of Operation Report of Operation DATE OF PROCEDURE: 05/19/21 PREPROCEDURE DIAGNOSIS: Right kidney stone. POSTPROCEDURE DIAGNOSIS: Right kidney stone. PROCEDURE: Right percutaneous nephrolithotomy, basket extraction of stones, right antegrade nephrostogram with intraoperative interpretation of images, right ureteral stent placement. SURGEON: Dr. Tete Gold METALLURGICAL INSPECTOR: Dr. Linda Stephens ANESTHESIA: General. OPERATIVE INDICATIONS: This is a 56 year-old female with a 5cm right staghorn stone. She was brought to the operating room today for the above-listed procedure. DESCRIPTION OF PROCEDURE: The patient was brought to the operating room, and general anesthesia was induced. Prophylactic antibiotics were infused. A 20Fr catheter was placed under sterile conditions. The patient was then repositioned in the prone position in preparation for a right-sided percutaneous nephrolithotomy. The patient was then prepped and draped in the usual sterile fa shion. At this point, the previously-placed right nephroureteral stent was utilized to advance an Amplatz Super Stiff wire down the ureter and into the bladder. The nephroureteral stent was then removed, leaving the wire in place. Next, a 2-3 cm transverse incision was made adjacent to the wire. A dual-lumen ureteral catheter was then advanced down into the right kidney. The large stone could easily be seen on fluoroscopy. An antegrade nephrostogram was performed and was negative for extravasation. A Motion guidewire was then advanced down the ureter and into the bladder. The dual-lumen ureteral catheter was then removed, leaving both wires in place. The Motion wire was then secured to the drape to serve as a safety wire. Next, over the Super Stiff wire, a balloon dilator was advanced into the right renal pelvis. The balloon was then inflated and left in place for a few s econds. Next, an access sheath was advanced over the balloon and into the right kidney. The balloon was then let down and removed, leaving the access sheath and the wire in place. At this point, a nephroscope was introduced into the right kidney. We were able to identify the large stone. The stone was then fragmented into several pieces and suctioned out using a ShockPulse lit hotriptor. Additional fragments were removed with a basket. I then examined the kidney again carefully and only very small stone fragments remained. Next, I advanced a #7-Palau[place] x 22-32 cm double J ureteral stent down into the right collecting system. The wire was removed and there were adequate curls of the stent in the bladder and the right kidney. At this point, the access sheath was removed, and the Motion wire was utilized to advance a #18-[place] tip catheter down into the right collecting s ystem. After the tip was within the renal pelvis, the balloon was inflated with about 3 mL of contrast. The [place] tip catheter was also utilized to shoot an antegrade nephrostogram, and this was negative for extravasation. We then secured the [place] tip catheter to the skin with a #2-0 silk suture. This was then connected to gravity drainage and marked the conclusion of the procedure. The patient was placed back in supine position, awakened from anesthesia, and transported to the recovery room in stable condition. ESTIMATED BLOOD LOSS: approximately 100 mL COMPLICATIONS: None. SPECIMENS: Right kidney stone fragments. PLAN: The patient will return to her room postoperatively. I will likely remove her right nephrostomy catheter tomorrow. Her stent will need to be removed in approximately 4 weeks. TETE GOLD MD May 19, 2021 12:00
[2021-05-19] MEDS ORDERED: LR 1,000 ML IV SCH (12:20)
[2021-05-19] MEDS ORDERED: ONDANSETRON 4MG/2ML VIAL IV PRN (12:20)
[2021-05-19] MEDS ORDERED: HYDROMORPHONE HCL 0.5 MG/ 0.5 ML SYRINGE (J1170 PER 1) IV PRN (12:20)
[2021-05-19] MEDS ORDERED: fentaNYL 100 MCG/2 ML INJECTION (J3010) IV PRN (12:20)
[2021-05-19] MEDS ORDERED: oxyCODONE 5MG TAB PO PRN (12:20)
[2021-05-19] MEDS ORDERED: HumaLOG INSULIN (NovoLOG) PER UNIT SC ONE (12:40)
[2021-05-19 13:16] LABS: HEMATOCRIT 35.6 % (36.0-47.0); HEMOGLOBIN 11.4 g/dl (12.0-15.5); MEAN CORPUSCULAR HEMOGLOBIN 29.2 pg (27.0-33.0); MEAN CORPUSCULAR VOLUME 91.3 fl (80.0-96.0); PLATELET COUNT, AUTOMATED 231 10^3/uL (150-450); WHITE BLOOD COUNT 13.7 10^3/uL (4.0-10.0)
[2021-05-19 13:33] VITALS: BP 122/64
[2021-05-19 13:42] LABS: BLOOD UREA NITROGEN 13 MG/DL (7-18); CARBON DIOXIDE LEVEL 27 MEQ/L (21-32); CHLORIDE LEVEL 101 MEQ/L (98-107); CREATININE FOR GFR 0.96 MG/DL (0.55-1.30); GLOMERULAR FILTRATION RATE > 60.0 (>51); GLUCOSE, FASTING 288 MG/DL (70-100); POTASSIUM SERUM 3.9 MEQ/L (3.5-5.1); SODIUM LEVEL 136 MEQ/L (136-145)
[2021-05-19] MEDS ORDERED: CONRAY-60 60% 50ML VIAL (Q9961) As Ordered ONE (14:53)
--- NOTE | 2021-05-19 15:54 | IPNPDOC ---
Text Note Date of Service The patient was seen on 05/19/21. NOTE Subjective: I saw patient in the room after procedure. Patient stated that she tolerates procedure well. No fever or chills Objective: GENERAL APPEARANCE: NAD HEENT: no scleral icterus, no JVD, EOMI CARDIOVASCULAR: S1S2, tachycardic at the rate 105 LUNGS: CTA ABDOMEN: soft & not tender w palpitation, urine leakage around left nephrostomy, right nephrostomy catheter in place, MUSCULOSKELETAL: no cyanosis, no swelling INTEGUMENT: no generalized pallor NEUROLOGICAL: follows commands, speech not dysarthric Assessment/Plan Patient is a 56 year old female with nephrolithiasis, ureteral strictures, and staghorn calculus who is here for left nephrostomy exchange and new right nephrostomy, but then became hypotensive and had a low grade temperature after procedure. Patient may have had transient bacteremia from the procedure vs becoming septic. Sepsis Patient developed hypotension after procedure with systolic blood pressure dropped to 60s associated with chills. There is also possibility that chills and low-grade fever could be associated with extravasation of urine during nephrostomy placement. Patient received vancomycin and Zosyn Urine culture from 03/02/21 was positive for Escherichia coli Continue ceftriaxone IV blood culture negative, urine culture pending Nephrolithiasis/right staghorn calculus Urology team proceeded with Right percutaneous nephrolithotomy, basket extraction of stones, right antegrade nephrostogram with intraoperative interpretation of images, right ureteral stent placement. Dr Kilpatrick follows her Tachycardia Patient stated she has chronic tachycardia Follow-up with engraver letter in the outpatient settings Type 2 diabetes HbA1c 8.7 Patient refused Insulin sliding scale or any insulin Left nephrostomy urine leakage Dr. Zelaya will take pt to OR for nephrostomy revision Morbidly obesity BMI 48.9 Complicated care VS,Fishbone, I+O VS, Fishbone, I+O Laboratory Tests 05/18/21 21:53 05/19/21 05:08 05/19/21 12:59 Vital Signs Date Time Temp Pulse Resp B/P (MAP) Pulse Ox O2 Delivery O2 Flow Rate FiO2 05/19/21 13:33 97.9 98 18 122/64 (83) 90 Room Air 05/19/21 11:58 10 I&O- Last 24 Hours up to 6 AM 05/19/21 06:00 Intake Total 2260 ml Output Total 5145 ml Balance -2885 ml VINNIE DOTSON DO May 19, 2021 15:54
[2021-05-19 16:00] VITALS: BP 135/67
[2021-05-19] MEDS ORDERED: NS 1,000 ML IV SCH (16:20)
[2021-05-19] MEDS: LEVEMIR (INSULIN DETEMIR) 1 UNITS/0.01ML SC SCH (16:30)
[2021-05-19] MEDS: NORCO, ANEXSIA 5/325MG TABLET (HYDROcodone/ACETAMINOPHEN) PO PRN (16:45)
--- NOTE | 2021-05-19 16:47 | REP ---
INDICATION: RIGHT PERCUTANEOUS NEPHROLITHOTOMY. COMPARISON: None. TECHNIQUE: Eleven views. 78.9 seconds of fluoroscopy time is reported. FINDINGS: A sequence of 11 last image hold fluoroscopically obtained spot radiographs document percutaneous nephro lithotomy procedure. IMPRESSION: Procedural imaging. <Electronically signed by Bakari Becerril > 05/19/21 [id number]
[2021-05-19] MEDS: DOCUSATE SODIUM 100MG CAPSULE PO PRN (21:12)
[2021-05-19 21:28] VITALS: BP 137/61
[2021-05-19] MEDS: cefTRIAXone SOD 1 GM in D5W MINI-BAG PLUS 50 ML IV SCH (23:05)
[2021-05-20] VITALS: BP 130/77
[2021-05-20] MEDS ORDERED: diphenhydrAMINE 50MG CAP PO PRN
[2021-05-20] MEDS: NORCO, ANEXSIA 5/325MG TABLET (HYDROcodone/ACETAMINOPHEN) PO PRN (03:22)
[2021-05-20 04:00] VITALS: BP 128/61
[2021-05-20] MEDS: SLF 3 ML SYR IV SCH (05:42)
[2021-05-20 05:48] LABS: BASO % 0.4 % (0.0-1.0); EOS # 0.3 10^3/uL (0.0-0.5); HEMATOCRIT 28.3 % (36.0-47.0); LYMPH # 1.3 10^3/uL (1.5-5.0); LYMPH % 15.2 % (24.0-44.0); MEAN CORPUSCULAR HEMOGLOBIN 29.2 pg (27.0-33.0); MEAN CORPUSCULAR HGB CONC 32.5 g/dl (32.0-36.5); MEAN CORPUSCULAR VOLUME 89.8 fl (80.0-96.0); MONO # 0.7 10^3/uL (0.0-0.8); NEUTROPHILS # 6.1 10^3/uL (1.5-8.5); PLATELET COUNT, AUTOMATED 210 10^3/uL (150-450); RED BLOOD COUNT 3.15 10^6/uL (4.00-5.40); WHITE BLOOD COUNT 8.4 10^3/uL (4.0-10.0)
[2021-05-20 05:52] LABS: HEMOGLOBIN 9.2 g/dl (12.0-15.5)
[2021-05-20 06:07] LABS: ALBUMIN 2.6 GM/DL (3.2-5.2); ALT/SGPT 15 U/L (12-78); BILIRUBIN,TOTAL 0.3 MG/DL (0.2-1.0); BLOOD UREA NITROGEN 14 MG/DL (7-18); CALCIUM LEVEL 8.2 MG/DL (8.5-10.1); CARBON DIOXIDE LEVEL 28 MEQ/L (21-32); CHLORIDE LEVEL 105 MEQ/L (98-107); CREATININE FOR GFR 0.84 MG/DL (0.55-1.30); GLOMERULAR FILTRATION RATE > 60.0 (>51); GLUCOSE, FASTING 244 MG/DL (70-100); MAGNESIUM LEVEL 1.6 MG/DL (1.8-2.4); SODIUM LEVEL 136 MEQ/L (136-145); TOTAL PROTEIN 5.7 GM/DL (6.4-8.2)
[2021-05-20 07:38] VITALS: BP 115/55
[2021-05-20] MEDS ORDERED: cefTRIAXone SOD 2 GM in D5W MINI-BAG PLUS 50 ML IV SCH (08:00)
[2021-05-20] MEDS ORDERED: MAGNESIUM OXIDE 400MG TAB (MAG-OX) PO SCH (09:00)
[2021-05-20] MEDS: LEVEMIR (INSULIN DETEMIR) 1 UNITS/0.01ML SC SCH (09:00)
[2021-05-20] MEDS: DOCUSATE SODIUM 100MG CAPSULE PO PRN (10:26)
[2021-05-20] MEDS ORDERED: HYDR-3715 PO (10:30)
[2021-05-20] MEDS ORDERED: AUGM875T28 PO (10:30)
[2021-05-20] MEDS ORDERED: DOK1CAP7 PO (10:30)
--- NOTE | 2021-05-20 12:34 | IPNPDOC ---
Subjective Review oF Systems Chief Complaint The patient is a 56-year-old female admitted with a reason for visit of Hypotension After Procedure. Events since Last Encounter No acute events o/n. Good pain control. No n/v. No f/c/ns. Objective Physical Examination General Exam: Alert, Cooperative, No Acute Distress ABDOMEN EXAM: Soft Skin Exam: Nl turgor and temperature Neuro Exam: Normal Speech Psych Exam: Mental status NL, Mood NL Other physical findings R nephrostomy catheter draining dark pink urine w/o clots; L nephroureteral stent draining yellow urine Vital Signs/I&O Vital Signs Date Time Temp Pulse Resp B/P (MAP) Pulse Ox O2 Delivery O2 Flow Rate FiO2 05/20/21 07:38 98.4 96 20 115/55 (75) 94 Room Air 05/19/21 11:58 10 I&O- Last 24 Hours up to 6 AM 05/20/21 06:00 Intake Total 4004 ml Output Total 4750 ml Balance -746 ml Laboratory Data Labs 24H Laboratory Tests 2 05/19/21 10:22: 05/19/21 12:25: Bedside Glucose (Misc Panel) 222H 05/19/21 12:59: Nucleated Red Blood Cells % (auto) 0.0, Anion Gap 8, Glomerular Filtration Rate > 60.0, Calcium Level 9.0 05/19/21 18:14: Bedside Glucose (Misc Panel) 331H 05/19/21 20:11: Bedside Glucose (Misc Panel) 309H 05/20/21 05:18: Immature Granulocyte % (Auto) 0.4, Neutrophils (%) (Auto) 73.0H, Lymphocytes (%) (Auto) 15.2L, Monocytes (%) (Auto) 8.0, Eosinophils (%) (Auto) 3.0, Basophils (%) (Auto) 0.4, Neutrophils # (Auto) 6.1, Lymphocytes # (Auto) 1.3L, Monocytes # (Auto) 0.7, Eosinophils # (Auto) 0.3, Basophils # (Auto) 0.0, Nucleated Red Blood Cells % (auto) 0.0, Anion Gap 3L, Glomerular Filtration Rate > 60.0, Calcium Level 8.2L, Magnesium Level 1.6L, Total Bilirubin 0.3, Aspartate Amino Transf (AST/SGOT) 12, Alanine Aminotransferase (ALT/SGPT) 15, Alkaline Phospha tase 60, Total Protein 5.7L, Albumin 2.6L, Albumin/Globulin Ratio 0.8L CBC/BMP Laboratory Tests 05/19/21 12:59 05/20/21 05:18 FSBS Laboratory Tests Test 05/19/21 12:25 05/19/21 18:14 05/19/21 20:11 Range/Units Bedside Glucose (Misc Panel) 222 331 309 70-105 MG/DL Microbiology Microbiology 05/18/21 Urine Culture, Received Pending 05/17/21 Blood Culture - Preliminary, Resulted No Growth after 48 hours. All Specime... 05/17/21 Blood Culture - Preliminary, Resulted No Growth after 48 hours. All Specime... Assessment/Plan Date Seen The patient was seen on 05/20/21. Patient Summary This is a 56 y/o F w/ a R staghorn calculus and a L nephroureteral stent for ureteral strictures, admitted to the hospital 3 days ago for hypotension and fev ers after having L nephroureteral stent exchange and a R nephroureteral stent placement. She is POD1 s/p R PCNL for treatment of her staghorn stone. She is doing well. I removed her R nephrostomy catheter this morning. Plan/VTE VTE Prophylaxis Ordered?: Yes VTE Exclusion Mechanical Proph: N/A:VTE Prophy Ordered Plan - Perez catheter came out last night and patient refused to have another one placed - R nephrostomy catheter removed this morning - management of L nephroureteral stent per IR - currently changing q10 wks - patient will f/u in the urology office in 3-4 wks for R ureteral stent removal TETE GOLD MD May 20, 2021 11:33
[2021-05-20 12:39] VITALS: BP 144/72
[2021-05-20 14:53] VITALS: BP 160/74
--- NOTE | 2021-05-20 16:51 | DS.PDOC ---
Discharge Summary General Date of Admission May 17, 2021 at 11:31 Date of Discharge 05/20/21 Discharge Summary PROCEDURES PERFORMED DURING STAY: [None]. ADMITTING DIAGNOSES: Sepsis Nephrolithiasis/right staghorn calculus Tachycardia Type 2 diabetes Left nephrostomy urine leakage Morbidly obesity Metabolic syndrome DISCHARGE DIAGNOSES: Sepsis Nephrolithiasis/right staghorn calculus Tachycardia Type 2 diabetes Left nephrostomy urine leakage Morbidly obesity Metabolic syndrome COMPLICATIONS/CHIEF COMPLAINT: Hypotension After Procedure. HISTORY OF PRESENT ILLNESS: Patient is a 56 year old female with nephrolithiasis, ureteral strictures, and staghorn calculus who is here for left nephrostomy exchange and new right nephrostomy, but then became hypotensive and had a low grade temperature after procedure. Patient may have had transient ba cteremia from the procedure vs becoming septic. HOSPITAL COURSE: During the hospital stay with following issue addressed Sepsis Patient developed hypotension after procedure with systolic blood pressure dropped to 60s associated with chills. There is also possibility that chills and low-grade fever could be associated with extravasation of urine during nephrostomy placement. Patient received vancomycin and Zosyn switched to ceftriaxone IV Urine culture from 03/02/21 was positive for Escherichia coli blood culture negative, urine culture pending Resolved Nephrolithiasis/right staghorn calculus Urology team proceeded with Right percutaneous nephrolithotomy, basket ex traction of stones, right antegrade nephrostogram with intraoperative interpretation of images, right ureteral stent placement. Dr Kilpatrick follows her R nephrostomy catheter removed this morning - management of L nephroureteral stent per IR - currently changing q10 wks - patient will f/u in the urology office in 3-4 wks for R ureteral stent removal Tachycardia Patient stated she has chronic tachycardia Follow-up with aluminum can collector in the outpatient settings Type 2 diabetes HbA1c 8.7 Patient refused Insulin sliding scale or any insulin Left nephrostomy urine leakage Follow-up with Dr. Zelaya Leakage improved today Morbidly obesity BMI 48.9 Complicated care DISCHARGE MEDICATIONS: Please see below. ALLERGIES: Please see below. PHYSICAL EXAMINATION ON DISCHARGE: VITAL SIGNS: Please see below. GENERAL APPEARANCE: NAD HEENT: no scleral icterus, no JVD, EOMI CARDIOVASCULAR: S1S2, tachycardic at the rate 105 LUNGS: CTA ABDOMEN: soft & not tender w palpitation MUSCULOSKELETAL: no cyanosis, no swelling INTEGUMENT: no generalized pallor NEUROLOGICAL: follows commands, speech not dysarthric LABORATORY DATA: Please see below. IMAGING: [facility] NAME: RALF MARION DATE OF : 1965 BUSINESS NUMBER: [id number] AGE: 56 SEX: F REPORT #: [id number] ROOM: [facility] TECHNOLOGIST: [id number] DOCTOR: LISA METZ DO Ordered for Date&Time: 05/17/211934 cc: [~ rep ct ivnm] Service Date&Time: 05/17/212013 This report is in Signed status. Interpretation performed by [facility]. Thank you for having your radiology procedures performed at [facility] RADIOLOGY REPORT Date&Time printed: [~ rep prt dt last] [~ rep prt tm last] Page 2 of 3 [place] [id number] RADIOLOGY REPORT This report is in Signed status. Interpretation performed by [facility]. Thank you for having your radiology procedures performed at [facility] RADIOLOGY REPORT Date&Time printed: [~ rep prt dt last] [~ rep prt tm last] Page 1 of 3 REASON FOR EXAMINATION: left sided mediastinal widening on CXR PROCEDURE INFORMATION: Exam: CT Chest Without Contrast; Diagnostic Exam date and time: 05/17/2021 8:14 PM Age: 56 years old Clinical indication: Abnormal findings; Abnormal radiologic exam of lung or chest; Additional info: Left sided mediastinal widening on cxr TECHNIQUE: Imaging protocol: Diagnostic computed tomography of the chest without contrast. 3D rendering (Not supervised by radiologist): MIP and/or 3D reconstructed images were created by the technologist. Radiation optimization: All CT scans at this facility use at least one of these dose optimization techniques: automated exposure control; mA and/or kV adjustment per patient size (includes targeted exams where dose is matched to clinical indication); or iterative reconstruction. COMPARISON: 1. CT Chest without contrast 05/01/2019 11:[address] ABD/PELVIS W/O CONTRAST - OUTSIDE PRIOR 10/01/2018 12:00:00 AM FINDINGS: Thyroid: There is a partially imaged nodule measuring 3.2 cm in anterior to posterior dimension in the right lobe of the thyroid gland. The thyroid was not fully imaged. Trachea: Normal. Bronchial tree: Normal. Lungs: There are 5 mm and 15 mm solid pulmonary nodules in the right middle lobe, which are stable compared to the prior CT chest on 05/01/[address] abdomen and pelvis on 10/01/2018 and for which follow-up imaging is not necessary (images 55 and 61 of the axial series 201). No new pulmonary nodules are noted. There is atelectasis in the lingula. No lung consolidation is noted. Pleural spaces: Normal. No pneumothorax or pleural effusion. Normal. No pneumothorax or pleural effusion. Heart: The heart is mildly enlarged. Extensive mitral annular calcifications are present. No pericardial effusion. Mediastinal space: The left mediastinal widening described in the chest x-ray on 05/17/2020 is secondary to anteriorly mediastinal fat. Aorta: There is no thoracic aortic aneurysm or intramural hematoma. There are mild atherosclerotic calcifications. Lymph nodes: There is a 12 mm right paratracheal lymph node and a 12 mm prevascular lymph node, which are stable compared to prior CT chest on 05/01/2019. Other subcentimeter mediastinal lymph nodes are present. Liver: There is a calcified granuloma in superior aspect of the right hepatic lobe, which is stable compared to prior CT chest on 05/01/2019. The liver was not fully imaged. Adrenal glands: Normal. No adrenal mass is noted. Bones/joints: There is no fracture or dislocation. No suspicious osteolytic or osteoblastic lesion. There are degenerative changes involving the thoracic spine. Soft tissues: Unremarkable. No soft tissue fluid collection. IMPRESSION: 1. The left mediastinal widening described in the chest x-ray on 05/17/2020 is secondary to anteriorly mediastinal fat. 2. 3.2 cm partially imaged nodule in the right lobe of thyroid gland. See management guidelines below. 3. 5 mm and 15 mm solid pulmonary nodules in the right middle lobe, which are stable compared to the prior CT chest on 05/01/[address] abdomen and pelvis on 10/01/2018 and for which follow-up imaging is not necessary. 4. Right paratracheal and prevascular lymphadenopathy, which is stable compared to the prior CT chest on 05/01/2019. COMMENTS: Consistent with the [employer]'s Incidental Findings Committee white paper (J Am Joey Radiol 2015): In patients aged 35 years and older with an incidental thyroid nodule equal to or greater than 1.[address], MRI or extrathyroidal US, further evaluation with dedicated thyroid US is recommended for patients with normal life expectancy and without comorbidities. For smaller nodules without suspicious features, no further evaluation or follow up is recommended. Electronically signed by: Sergey Jimenez On 05/17/2021 22:00:22 PM DD: SERGEY JIMENEZ MD 05/17/212013 DT: TANI 05/17/212199 DS: OTONIEL 05/17/212199 [~ rep ct labl] PROGNOSIS: Fair ACTIVITY: [As tolerated]. DIET: Diabetes DISCHARGE PLAN: - management of L nephroureteral stent per IR - currently changing q10 wks - patient will f/u in the urology office in 3-4 wks for R ureteral stent removal DISPOSITION: 01 Home, Self-Care. ITEMS TO FOLLOWUP ON ON OUTPATIENT: Follow-up with urologist, senior revenue accountant and PCP DISCHARGE CONDITION: [Stable]. TIME SPENT ON DISCHARGE: 40minutes. Vital Signs/I&Os Vital Signs Date Time Temp Pulse Resp B/P (MAP) Pulse Ox O2 Delivery O2 Flow Rate FiO2 05/20/21 14:53 100 20 94 Room Air 05/20/21 13:45 97.7 05/20/21 12:39 144/72 (96) 05/19/21 11:58 10 I&O- Last 24 Hours up to 6 AM 05/20/21 06:00 Intake Total 4004 ml Output Total 4750 ml Balance -746 ml Laboratory Data Labs 24H Laboratory Tests 2 05/19/21 18:14: Bedside Glucose (Misc Panel) 331H 05/19/21 20:11: Bedside Glucose (Misc Panel) 309H 05/20/21 05:18: Immature Granulocyte % (Auto) 0.4, Neutrophils (%) (Auto) 73.0H, Lymphocytes (%) (Auto) 15.2L, Monocytes (%) (Auto) 8.0, Eosinophils (%) (Auto) 3.0, Basophils (%) (Auto) 0.4, Neutrophils # (Auto) 6.1, Lymphocytes # (Auto) 1.3L, Monocytes # (Auto) 0.7, Eosinophils # (Auto) 0.3, Basophils # (Auto) 0.0, Nucleated Red Blood Cells % (auto) 0.0, Anion Gap 3L, Glomerular Filtration Rate > 60.0, Calcium Level 8.2L, Magnesium Level 1.6L, Total Bilirubin 0.3, Aspartate Amino Transf (AST/SGOT) 12, Alanine Aminotransferase (ALT/SGPT) 15, Alkaline Phosphatase 60, Total Protein 5.7L, Albumin 2.6L, Albumin/Globulin Ratio 0.8L, Procalcitonin 3.42 05/20/21 12:19: Bedside Glucose (Misc Panel) 284H CBC/BMP Laboratory Tests 05/20/21 05:18 FSBS Laboratory Tests Test 05/19/21 18:14 05/19/21 20:11 05/20/21 12:19 Range/Units Bedside Glucose (Misc Panel) 331 309 284 70-105 MG/DL Microbiology Microbiology 05/18/21 Urine Culture, Received Pending 05/17/21 Blood Culture - Preliminary, Resulted No Growth after 48 hours. All Specime... 05/17/21 Blood Culture - Preliminary, Resulted No Growth after 48 hours. All Specime... Discharge Medications Scheduled Amoxicillin/Potassium Clav (Augmentin 875-125 Tablet) 1 Each Tablet, 1 TAB PO BID Dulaglutide (Trulicity) 1.5 Mg/0.5 Ml Pen.injctr, 1.2 MG SC QWEDNESDAY, (Reported) Multivit-Minerals/Folic Acid (Adult Multivitamin Gummies) 1 Chw Chw, 1 CHW PO DAILY, (Reported) Scheduled PRN Docusate Sodium (Dok) 100 Mg Capsule, 100 MG PO DAILYPRN PRN for CONSTIPATION Hydrocodone/Acetaminophen (Hydrocodone-Acetamin 5-325 mg) 1 Each Tablet, 2 TAB PO Q6HP PRN for SEVERE PAIN (PS 8-10) Allergies Coded Allergies: Contrast Media (Verified Allergy, Severe, SOB/RASH, 05/05/21) banana (Verified Allergy, Severe, SOB, 05/05/21) levofloxacin (Verified Allergy, Severe, RASH/SOB, 05/17/21) Kiwi (Verified Allergy, Intermediate, HIVES, 05/05/21) Sulfa (Sulfonamide Antibiotics) (Verified Allergy, Intermediate, HIVES, SOB, 05/05/21) codeine (Verified Allergy, Intermediate, N/V, HIVES, 05/05/21) erythromycin base (Verified Allergy, Intermediate, HIVES, and muscle cramps, 05/17/21) latex (Verified Allergy, Intermediate, RASH, 05/05/21) sulfamethoxazole (Verified Allergy, Intermediate, HIVES, 05/17/21) trimethoprim (Verified Allergy, Intermediate, HIVES, 05/17/21) insulin lispro (Verified Adverse Reaction, Intermediate, BLINDNESS, ) morphine (Verified Adverse Reaction, Intermediate, HALLUCINATIONS, 05/17/21) shellfish derived (Verified Adverse Reaction, Intermediate, BURNING TONGUE, 05/05/21) ertapenem (Verified Adverse Reaction, Mild, N/V, 05/17/21) VINNIE DOTSON DO May 20, 2021 16:51
--- NOTE | 2021-05-24 13:47 | IRPON ---
IR Postoperative Note Date Of Procedure: May 20, 2021 Time Of Procedure: 16:00 IR Postoperative Note Procedure: Left nephroureteral internal/external stent evaluation under fluo roscopy. Clinical indication: Leakage at left nephroureteral skin site. A metallographer image was obtained and this demonstrates right nephroureteral catheter in appropriate position. The catheter flushed easily. No leakage at the skin. The catheter was capped. Impression: Left nephroureteral catheter in appropriate position and flushes easily. The catheter was capped. Patient to follow-up for routine exchanges. RIKI DE LA ROSA MD May 24, 2021 13:47
[2021-05-31 23:06] LABS: Ca Ox Monohydrate 10 % (.); Size 14x8 mm (.); Uric Acid 90 % (.)
== END 2021-05-20 15:52 | disposition home or self-care (01) | DRG 710 ==
LOC: M IRPRO 11:30 → M ED INP 11:31 → M PCU 11:32 → OBSVTOIN 05-19 17:46 → UNDODISOB 05-20 15:52
PROVIDERS: ADMIT Internal Medicine; ATTEND Internal Medicine
PROC: 0T9030Z Drainage of Right Kidney with Drainage Device, Percutaneous Approach (ICD-10-PCS; 2021-05-17)
PROC: 0T773DZ Dilation of Left Ureter with Intraluminal Device, Percutaneous Approach (ICD-10-PCS; 2021-05-17)
PROC: 0T763DZ Dilation of Right Ureter with Intraluminal Device, Percutaneous Approach (ICD-10-PCS; 2021-05-19)
PROC: 0TC03ZZ Extirpation of Matter from Right Kidney, Percutaneous Approach (ICD-10-PCS; principal; 2021-05-19 07:30)
DX: A41.9 Sepsis, unspecified organism (principal); E88.81 Metabolic syndrome and other insulin resistance; Z68.42 Body mass index [BMI] 45.0-49.9, adult; E66.01 Morbid (severe) obesity due to excess calories; J45.909 Unspecified asthma, uncomplicated; E03.9 Hypothyroidism, unspecified; N20.0 Calculus of kidney; Z79.899 Other long term (current) drug therapy; Z43.6 Encounter for attention to other artificial openings of urinary tract; Z91.041 Radiographic dye allergy status; Z88.2 Allergy status to sulfonamides; Z88.5 Allergy status to narcotic agent; Z88.8 Allergy status to other drugs, medicaments and biological substances; Z91.040 Latex allergy status; Z88.1 Allergy status to other antibiotic agents; Z91.013 Allergy to seafood; Z91.018 Allergy to other foods

== ENCOUNTER → 2021-05-21 | Outpatient (REF) | payer OTHER ==
[~2021-05-21] MED LIST changes: +AUGM875T28 PO; +DOK1CAP7 PO; +HYDR-3715 PO
== END ==
LOC: M LAB REF 14:51
PROVIDERS: ATTEND Physician Assistant
DX: D22.60 Melanocytic nevi of unspecified upper limb, including shoulder (principal)

== ENCOUNTER → 2021-06-08 | Outpatient (POV) | payer OTHER ==
[~2021-06-08] VITALS: Ht 170.2 cm; Wt 135.0 kg
[~2021-06-08] MED LIST changes: +LIDOCAINE 1% MDV 20ML VIAL As Ordered ONE
[2021-06-08 13:25] VITALS: BP 178/76
--- NOTE | 2021-06-09 14:57 | IRPN ---
[facility] IR Progress Note IR Progress Note DATE: Jun 08, 2021 FOLLOW-UP: Patient with history of bilateral kidney stones, status post multiple procedures, now left nephroureteral stent dependent for ureteral stenosis. Patient complaining of urine leaking from around the tube. She has it capped to drain internally. She has a cook 10 [place] internal/external nephroureteral stent in place. She states this flushes well. It was only recently exchanged and shown to be in good position. It is not retracted. Patient denies flank pain, fevers or chills. ON EXAMINATION: Left nephroureteral antegrade internal/external stent catheter with urine leakage from around the tube. Catheter is not retracted. Skin around the tube appears irritated from the Tegaderm adhesive. IMPRESSION: Patient with left ureteral stenosis and left internal/external nephroureteral stent, has problem with urine leaking from around the tube. The tube itself is patent. We have looked into ordering a larger nephroureteral stent but this is not available on the market. The 2 options include converting her back to a left nephrostomy which can be 14 Tu[place] or larger versus complete internalization of her left ureteral stent, with a double-J ureteral stent. This can then be managed by urology with cystoscopic stent exchanges. We will schedule the patient for one of these [address] procedures [address] Cc [address] Kilpatrick Allergies Coded Allergies: Contrast Media (Verified Allergy, Severe, SOB/RASH, 05/05/21) banana (Verified Allergy, Severe, SOB, 05/05/21) levofloxacin (Verified Allergy, Severe, RASH/SOB, 05/17/21) Kiwi (Verified Allergy, Intermediate, HIVES, 05/05/21) Sulfa (Sulfonamide Antibiotics) (Verified Allergy, Intermediate, HIVES, SOB, 05/05/21) codeine (Verified Allergy, Intermediate, N/V, HIVES, 05/05/21) erythromycin base (Verified Allergy, Intermediate, HIVES, and muscle cramps, 05/17/21) latex (Verified Allergy, Intermediate, RASH, 05/05/21) sulfamethoxazole (Verified Allergy, Intermediate, HIVES, 05/17/21) trimethoprim (Verified Allergy, Intermediate, HIVES, 05/17/21) insulin lispro (Verified Adverse Reaction, Intermediate, BLINDNESS, 05/18/21) morphine (Verified Adverse Reaction, Intermediate, HALLUCINATIONS, 05/17/21 ) shellfish derived (Verified Adverse Reaction, Intermediate, BURNING TONGUE, 05/05/21) ertapenem (Verified Adverse Reaction, Mild, N/V, 05/17/21) VS,Fishbone, I+O VS, Fishbone, I+O Vital Signs Date Time Temp Pulse Resp B/P (MAP) Pulse Ox O2 Delivery O2 Flow Rate FiO2 06/08/21 13:25 97.4 110 20 178/76 (110) 96 Room Air RIKI DE LA ROSA MD Jun 09, 2021 14:57
== END ==
LOC: M IRPOV 13:17
PROVIDERS: ATTEND Radiology Diagnostic Radiology
DX: T83.032A Leakage of nephrostomy catheter, initial encounter (principal); N35.92 Unspecified urethral stricture, female; X58.XXXA Exposure to other specified factors, initial encounter; Z79.899 Other long term (current) drug therapy; Z87.442 Personal history of urinary calculi; Z88.1 Allergy status to other antibiotic agents; Z88.2 Allergy status to sulfonamides; Z88.5 Allergy status to narcotic agent; Z88.8 Allergy status to other drugs, medicaments and biological substances; Z91.013 Allergy to seafood; Z91.018 Allergy to other foods; Z91.041 Radiographic dye allergy status

== ENCOUNTER → 2021-06-14 | Outpatient (CLI) | payer OTHER ==
[~2021-06-14] MED LIST changes: +DOK1CAP4 PO; -DOK1CAP7 PO; +ISOVUE-300 61% 50ML VIAL As Ordered ONE; +MIDAZOLAM INJ 2MG/2ML VIAL (J2250 PER 1MG) As Ordered ONE; +NS 1,000 ML IV SCH; +ONDANSETRON 4 MG ORAL DISINTEGRATING TAB As Ordered ONE; +ceFAZolin 1GM VIAL (J0690 PER 500MG) As Ordered ONE; +ceFAZolin SOD 1 GM in D5W MINI-BAG PLUS 50 ML IV ONE; +diphenhydrAMINE 50MG/ML VIAL (J1200) As Ordered ONE; +fentaNYL 100 MCG/2 ML INJECTION (J3010) As Ordered ONE
[2021-06-14 07:00] VITALS: BP 173/75
--- NOTE | 2021-06-14 15:08 | IRPON ---
IR Postoperative Note Date Of Procedure: Jun 14, 2021 Time Of Procedure: 14:59 IR Postoperative Note IR evaluation. Clinical indication: Patient previously left nephrostomy and later left nephroureteral stent dependent, due to ureteral stricture. Per patient, her percutaneous nephroureteral stent fell out on Monday morning. Patient is not willing to have a replacement left nephrostomy or nephroureteral stent placed. Existing tract will close if a replacement nephrostomy is not placed. Patient states she does understand this. She is not willing to get a left nephrostomy or left nephroureteral stent placed. She states she does not want any more tubes. A KUB was obtained which does confirm the left nephroureteral stent is gone. Impression: Patient with left ureteral stricture, previously left nephrostomy and later left nephroureteral stent dependent. Patient's nephroureteral stent fell out. Patient is not willing to have a replacement nephrostomy or nephroureteral tubes placed. Patient will be discharged from interventional radiology services. Patient to follow-up with urology. It is understood that the left nephrostomy tract will close and patient does not want any future percut aneous nephrostomy access or percutaneous tubes. Cc RIKI Tovar MD Jun 14, 2021 15:08
== END ==
LOC: M IRPRO 06:51
PROVIDERS: ATTEND Radiology Diagnostic Radiology
DX: N13.9 Obstructive and reflux uropathy, unspecified (principal)
CPT/HCPCS: 50435; C1769; J0690; Q0162; Q9967

== ENCOUNTER → 2021-06-15 | Outpatient (CLI) | payer OTHER ==
[~2021-06-15] MED LIST changes: -DOK1CAP4 PO; +DOK1CAP7 PO; -ISOVUE-300 61% 50ML VIAL As Ordered ONE; -LIDOCAINE 1% MDV 20ML VIAL As Ordered ONE; -MIDAZOLAM INJ 2MG/2ML VIAL (J2250 PER 1MG) As Ordered ONE; -NS 1,000 ML IV SCH; -ONDANSETRON 4 MG ORAL DISINTEGRATING TAB As Ordered ONE; -ceFAZolin 1GM VIAL (J0690 PER 500MG) As Ordered ONE; -ceFAZolin SOD 1 GM in D5W MINI-BAG PLUS 50 ML IV ONE; -diphenhydrAMINE 50MG/ML VIAL (J1200) As Ordered ONE; -fentaNYL 100 MCG/2 ML INJECTION (J3010) As Ordered ONE
--- NOTE | 2021-06-15 15:56 | REP ---
INDICATION: NONTOXIC SINGLE THYROID NODULE- X-RAY FIRST. COMPARISON: CT chest 05/17/2021. TECHNIQUE: Real-time sonographic evaluation of thyroid performed. FINDINGS: Right lobe measures 4.9 x 2.8 x 2.7 cm and left lobe 3.2 x 1.2 x 1.2 cm. A heterogeneous somewhat lobulated nodule is seen in the right lobe of the thyroid measuring 4.3 x 2.8 x 2.7 cm, essentially replacing the right lobe parenchyma. There is internal blood flow with Doppler evaluation. No other cystic or solid nodule is seen. IMPRESSION: Dominant solid nodule involving the right lobe of the thyroid as discussed above. According to TI-RADS criteria, ultrasound-guided FNA is recommended. <Electronically signed by Yaya Ramsay > 06/15/21 [id number]
== END ==
LOC: M RAD 14:22
PROVIDERS: ATTEND Physician Assistant
DX: E04.1 Nontoxic single thyroid nodule (principal)

== ENCOUNTER → 2021-06-15 | Outpatient (CLI) | payer OTHER ==
--- NOTE | 2021-06-15 16:42 | REP ---
INDICATION: CALCULUS OF KIDNEY- US AFTER. COMPARISON: Comparison radiograph September 24, 2020.. TECHNIQUE: KUB: Two views. FINDINGS: Bowel gas pattern is unremarkable. A double pigtail right ureteral stent is noted in what appears to be good position. No mass, organomegaly, or pathologic calcification is seen. IMPRESSION: Right-sided double-pigtail stent in place. <Electronically signed by Bakari Becerril > 06/15/21 [id number]
== END ==
LOC: M RAD 14:25
PROVIDERS: ATTEND Urology
DX: N20.0 Calculus of kidney (principal)

== ENCOUNTER → 2021-06-17 | Outpatient (REF) | payer OTHER ==
[2021-06-17 14:36] LABS: APPEARANCE, URINE TURBID (CLEAR); BACTERIA, URINE AUTO NEGATIVE (NEGATIVE); BILIRUBIN, URINE AUTO NEGATIVE (NEGATIVE); BLOOD, URINE BLOOD 3+ (NEGATIVE); COLOR, URINE YELLOW (YELLOW); GLUCOSE, URINE (UA) AUTO 1+ mg/dL (NEGATIVE); KETONE, URINE AUTO NEGATIVE (NEGATIVE); LEUKOCYTE ESTERASE, URINE AUTO 3+ (NEGATIVE); NITRITE, URINE AUTO NEGATIVE (NEGATIVE); PROTEIN, URINE AUTO 2+ mg/dL (NEGATIVE); RBC, URINE AUTO TNTC /HPF (0-3); SPECIFIC GRAVITY URINE AUTO 1.009 (1.002-1.035); SQUAMOUS EPITHELIAL CELL UR AU 3 /HPF (0-6); UROBILINOGEN, URINE AUTO 0.2 mg/dL (0.0-2.0); WBC, URINE AUTO TNTC /HPF (0-3)
== END ==
LOC: M SMT 12:52
PROVIDERS: ATTEND Urology
DX: N39.0 Urinary tract infection, site not specified (principal)

== ENCOUNTER → 2021-07-02 | Outpatient (CLI) | payer OTHER ==
[~2021-07-02] MED LIST changes: +DOK1CAP4 PO; -DOK1CAP7 PO; +LIDOCAINE 1% MDV 20ML VIAL As Ordered ONE; -LISI-898 PO; +LISI5TAB11 PO
[2021-07-02 14:20] VITALS: BP 121/60
== END ==
LOC: M IRPRO 13:33
PROVIDERS: ATTEND Physician Assistant
DX: R89.6 Abnormal cytological findings in specimens from other organs, systems and tissues (principal)

== ENCOUNTER → 2021-07-06 | Outpatient (CLI) | payer OTHER ==
[~2021-07-06] MED LIST changes: -LIDOCAINE 1% MDV 20ML VIAL As Ordered ONE; +LISI-898 PO; -LISI5TAB11 PO
--- NOTE | 2021-07-06 15:12 | REP ---
INDICATION: URETERAL STRICTURE. COMPARISON: None. TECHNIQUE/RADIOTRACER AND DOSE: After the intravenous administration of 8.8 mCi of technetium 99 M Mag 3 a renal flow in scan was obtained. FINDINGS: The flow portion of the renal scan shows poor and delayed visualization of the kidneys which are barely perceptible at the 28 minute william. The dynamic renal scan shows increasing activity within the kidneys throughout the exam with no scintigraphic evidence of washout. Analysis of the functional curves shows time to peak activity left kidney 28 minutes and time to peak activity right kidney 17 minutes. The T1 half value cannot be calculated for either kidney since it is in an excess of 30 minutes. Split differential analysis shows 40.7% of the counts coming from the left kidney and 59.3% of the counts coming from the right kidney. Pre and post void scintiscan shows no significant difference in the activity of the kidneys. IMPRESSION: There is marked altered renal function bilaterally. The appearance of each kidney is non reniform. This could be secondary to a combination of renal calculi and renal cysts which were seen on a CT of 01/29/2021. Additionally, asymmetric hydronephrosis can produce a similar scintigraphic picture. Consider repeat anatomical imaging with CT if clinically relevant. <Electronically signed by Maco Timmons > 07/06/21 [id number]
== END ==
LOC: M RAD 13:39
PROVIDERS: ATTEND Urology
DX: N13.5 Crossing vessel and stricture of ureter without hydronephrosis (principal); N20.0 Calculus of kidney; N28.1 Cyst of kidney, acquired
CPT/HCPCS: 78707; A9562

== ENCOUNTER → 2021-07-19 | Outpatient (CLI) | payer OTHER ==
--- NOTE | 2021-07-19 10:37 | REP ---
INDICATION: KIDNEY STONES COMPARISON: 01/29/2021 TECHNIQUE: Axial noncontrast images from the lung bases to the pubic symphysis with coronal and sagittal reformations. This CT examination was performed using the following dose reduction techniques: Automated exposure control, adjustment of mA and/or kv according to the patient's size, and use of iterative reconstruction technique. FINDINGS: Kidneys demonstrate significant grade 4 hydroureteronephrosis with chronic appearing perinephric stranding. Multiple obstructing distal right ureteral calculi are noted measuring up to 6 mm (series 201; images 121-125). The left ureter is dilated but without obstructing calculus. The bladder is grossly unremarkable by noncontrast evaluation. Liver, spleen, pancreas, gallbladder, and bilateral adrenal glands are normal for noncontrast evaluation. The enteric system is without obstruction or acute inflammatory process. Scattered sigmoid diverticula noted without acute diverticulitis. Further evaluation of the pelvis demonstrates stable retroflexed uterus. No ascites. No free air. No adenopathy. Atherosclerotic changes to the aorta and vasculature noted without aneurysm. Musculoskeletal structures demonstrate degenerative changes. Lung bases demonstrate 15 mm noncalcified nodule in the right middle lobe which appears essentially unchanged compared through 2018. IMPRESSION: 1. Significant increased bilateral hydroureteronephrosis with multiple distal right ureteral calculi up to 6 mm. No left sided calculi identified. <Electronically signed by Tyrone Ramirez > 07/19/21 [id number]
== END ==
LOC: M RAD 09:29
PROVIDERS: ATTEND Urology
DX: N20.0 Calculus of kidney (principal)

== ENCOUNTER → 2021-07-29 | Outpatient (REF) | payer OTHER | LOC: M LAB REF 13:04 | PROVIDERS: ATTEND Internal Medicine Nephrology | DX: N39.0 Urinary tract infection, site not specified (principal) ==

== ENCOUNTER → 2021-08-02 | Outpatient (CLI) | payer OTHER ==
--- NOTE | 2021-08-02 10:45 | REP ---
INDICATION: CALCULUS OF KIDNEY. COMPARISON: [facility], 06/15/2021. TECHNIQUE: AP supine image of the abdomen was obtained. FINDINGS: There has been interval removal of the right-sided double-J ureteral stent. There is no nephrolithiasis or ureterolithiasis. There is stool throughout the colon. There is no abnormal bowel dilatation or evidence of free intraperitoneal air. There are no significant bony abnormalities. IMPRESSION: 1. Status post interval removal of the right-sided double-J ureteral stent. 2. Moderate constipation. <Electronically signed by Negrito Ramirez > 08/02/21 [id number]
== END ==
LOC: M RAD 10:13 → M LAB 10:13
PROVIDERS: ATTEND Urology
DX: Z46.6 Encounter for fitting and adjustment of urinary device (principal); K59.00 Constipation, unspecified

== ENCOUNTER → 2021-09-01 | Outpatient (CLI) | payer OTHER ==
--- NOTE | 2021-09-01 09:10 | REP ---
INDICATION: KIDNEY STONES COMPARISON: 09/24/2020 TECHNIQUE: Real time ervin scale ultrasound examination using curved array transducer. FINDINGS: The left and right kidneys are bilaterally enlarged and demonstrate severe hydroureteronephrosis without obvious perinephric fluid, cystic or mass lesion. Right kidney measures 14.7 x 6.8 x 7.5 cm with grade 4 hydroureteronephrosis and includes 15 mm nonobstructing midpole calculus. Left kidney measures 20.5 x 7.6 x 9.1 cm with grade 5 hydroureteronephrosis and no obvious intrarenal calculus. Bladder is grossly unremarkable. A right ureteral jet is identified while left ureteral jet was not visualized during examination raising the possibility of left ureteral obstruction. IMPRESSION: 1. Severe bilateral hydronephrosis along with 15 mm nonobstructing right renal calculus. 2. Lack of left ureteral jet in the bladder may represent acute ureteral obstruction. <Electronically signed by Tyrone Ramirez > 09/01/21 [id number]
== END ==
LOC: M RAD 08:05
PROVIDERS: ATTEND Urology
DX: N20.0 Calculus of kidney (principal)

== ENCOUNTER → 2022-02-09 | Outpatient (REF) | payer OTHER ==
[~2022-02-09] MED LIST changes: -LISI-898 PO; +LISI5TAB11 PO
[2022-02-09 14:02] LABS: APPEARANCE, URINE TURBID (CLEAR); BACTERIA, URINE AUTO 3+ (NEGATIVE); BILIRUBIN, URINE AUTO NEGATIVE (NEGATIVE); BLOOD, URINE BLOOD 3+ (NEGATIVE); CALCIUM OXALATE CRYSTALS SMALL; COLOR, URINE YELLOW (YELLOW); GLUCOSE, URINE (UA) AUTO 3+ mg/dL (NEGATIVE); KETONE, URINE AUTO NEGATIVE (NEGATIVE); LEUKOCYTE ESTERASE, URINE AUTO 3+ (NEGATIVE); MUCUS, URINE SMALL (NEGATIVE); NITRITE, URINE AUTO POSITIVE (NEGATIVE); PROTEIN, URINE AUTO 2+ mg/dL (NEGATIVE); RBC, URINE AUTO 133 /HPF (0-3); SPECIFIC GRAVITY URINE AUTO 1.012 (1.002-1.035); SQUAMOUS EPITHELIAL CELL UR AU 20 /HPF (0-6); UROBILINOGEN, URINE AUTO 0.2 mg/dL (0.0-2.0); WBC, URINE AUTO TNTC /HPF (0-3)
== END ==
LOC: M SMT 12:48
PROVIDERS: ATTEND Urology
DX: N39.0 Urinary tract infection, site not specified (principal)

== ENCOUNTER → 2022-02-21 | Outpatient (REF) | payer OTHER ==
[2022-02-21 13:35] LABS: APPEARANCE, URINE TURBID (CLEAR); BACTERIA, URINE AUTO 3+ (NEGATIVE); BILIRUBIN, URINE AUTO NEGATIVE (NEGATIVE); BLOOD, URINE BLOOD 3+ (NEGATIVE); COLOR, URINE YELLOW (YELLOW); GLUCOSE, URINE (UA) AUTO 3+ mg/dL (NEGATIVE); KETONE, URINE AUTO NEGATIVE (NEGATIVE); LEUKOCYTE ESTERASE, URINE AUTO 3+ (NEGATIVE); NITRITE, URINE AUTO POSITIVE (NEGATIVE); PROTEIN, URINE AUTO 2+ mg/dL (NEGATIVE); RBC, URINE AUTO 0 /HPF (0-3); SPECIFIC GRAVITY URINE AUTO 1.021 (1.002-1.035); SQUAMOUS EPITHELIAL CELL UR AU 0 /HPF (0-6); UROBILINOGEN, URINE AUTO 0.2 mg/dL (0.0-2.0); WBC, URINE AUTO TNTC /HPF (0-3)
== END ==
LOC: M SMT 12:52
PROVIDERS: ATTEND Urology
DX: N20.0 Calculus of kidney (principal)

== ENCOUNTER → 2022-02-23 | Outpatient (CLI) | payer OTHER | LOC: M PLAIMG 09:28 | PROVIDERS: ATTEND Urology | DX: N20.0 Calculus of kidney (principal) ==

== ENCOUNTER 2022-04-08 18:57 | Inpatient (IN) | payer OTHER ==
[~2022-04-08] VITALS: Ht 170.2 cm; Wt 144.9 kg
[2022-04-08] MEDS ORDERED: TAMS1CAP17 PO (19:26)
[2022-04-08] MEDS ORDERED: ACETAMINOPHEN 500 MG TAB PO ONE (20:35)
[2022-04-08] MEDS ORDERED: NS 1,000 ML IV ONE (20:35)
[2022-04-08 20:48] LABS: BASO % 0.3 % (0.0-1.0); EOS % 0.1 % (0.0-3.0); HEMATOCRIT 35.4 % (36.0-47.0); HEMOGLOBIN 11.9 g/dl (12.0-15.5); LYMPH # 0.6 10^3/uL (1.5-5.0); MEAN CORPUSCULAR HEMOGLOBIN 29.3 pg (27.0-33.0); MEAN CORPUSCULAR HGB CONC 33.6 g/dl (32.0-36.5); MEAN CORPUSCULAR VOLUME 87.2 fl (80.0-96.0); MONO # 0.8 10^3/uL (0.0-0.8); MONO % 6.5 % (2.0-8.0); NEUTROPHILS # 10.9 10^3/uL (1.5-8.5); NEUTROPHILS % 87.4 % (36.0-66.0); PLATELET COUNT, AUTOMATED 278 10^3/uL (150-450); RED BLOOD COUNT 4.06 10^6/uL (4.00-5.40); WHITE BLOOD COUNT 12.5 10^3/uL (4.0-10.0)
[2022-04-08 21:17] LABS: ALT/SGPT 20 U/L (12-78); BILIRUBIN,DIRECT 0.3 MG/DL (0.0-0.2); BILIRUBIN,TOTAL 0.9 MG/DL (0.2-1.0); BLOOD UREA NITROGEN 24 MG/DL (7-18); CALCIUM LEVEL 9.2 MG/DL (8.5-10.1); CARBON DIOXIDE LEVEL 30 MEQ/L (21-32); CHLORIDE LEVEL 86 MEQ/L (98-107); GLOMERULAR FILTRATION RATE 41.4 (>51); GLUCOSE, FASTING 602 MG/DL (70-100); LIPASE 81 U/L (73-393); POTASSIUM SERUM 3.7 MEQ/L (3.5-5.1); SODIUM LEVEL 125 MEQ/L (136-145); TOTAL PROTEIN 7.4 GM/DL (6.4-8.2)
[2022-04-08 21:33] LABS: ACETONE/KETONE 15.68 MG/DL (<2.81)
[2022-04-08 21:39] LABS: VENOUS BASE EXCESS 2.9 (-2.0-2.0); VENOUS HCO3 27.2 MEQ/L (23.0-27.0); VENOUS O2 SATURATION 95.7 % (60.0-80.0); VENOUS PARTIAL PRESSURE CO2 40.7 mmHg (38.0-50.0); VENOUS PARTIAL PRESSURE O2 78.4 mmHg (30.0-50.0); VENOUS PH 7.443 UNITS (7.330-7.430); VENOUS TOTAL CO2 28.5 MEQ/L (24.0-28.0)
[2022-04-08] MEDS ORDERED: CEFDINIR 300 MG CAP (OMNICEF) PO ONE (23:10)
[2022-04-08] MEDS ORDERED: POTA4.25 PO (23:54)
[2022-04-08] MEDS ORDERED: METF10004 PO (23:59)
[2022-04-09] MEDS ORDERED: HOME MED LIST COMPLETE! XX SCH
[2022-04-09] MEDS ORDERED: cefTRIAXone SOD 1 GM in D5W MINI-BAG PLUS 50 ML IV ONE (00:15)
[2022-04-09 00:29] LABS: PROTHROMBIN TIME 13.6 SECONDS (12.7-14.5)
[2022-04-09 00:30] LABS: PARTIAL THROMBOPLASTIN TIME 38.1 SECONDS (25.9-37.0)
[2022-04-09 00:31] LABS: HCG, SERUM QUALITATIVE NEGATIVE (NEGATIVE)
[2022-04-09] MEDS ORDERED: NS 1,000 ML IV ONE ×4 (01:05→18:00)
[2022-04-09] MEDS ORDERED: NS 1,000 ML IV SCH ×2 (01:45→12:55)
[2022-04-09] MEDS ORDERED: HYDROMORPHONE HCL 0.5 MG/ 0.5 ML SYRINGE (J1170 PER 1) IV PRN (01:45)
[2022-04-09] MEDS ORDERED: diphenhydrAMINE 50MG/ML VIAL (J1200) IV ONE (02:45)
[2022-04-09] MEDS ORDERED: ONDANSETRON 4MG/2ML VIAL IV PRN ×2 (02:45→11:50)
[2022-04-09] MEDS: ACETAMINOPHEN TAB 650MG DOSE (2X325MG) PO PRN ×2 (04:17→15:56)
[2022-04-09] MEDS ORDERED: LEVEMIR (INSULIN DETEMIR) 1 UNITS/0.01ML SC SCH ×2 (05:25→09:00)
[2022-04-09] MEDS ORDERED: DEXTROSE 50% 50 ML SYRINGE IV PRN (05:25)
[2022-04-09] MEDS ORDERED: GLUCOSE 4GM CHEW TABLET PO PRN (05:25)
[2022-04-09] MEDS ORDERED: GLUCAGON INJ 1MG VIAL SC PRN (05:25)
[2022-04-09] MEDS ORDERED: ACETAMINOPHEN *IV* 1,000 MG in IV 1 EA IV ONE (05:35)
[2022-04-09] MEDS ORDERED: INSULIN LISPRO (NovoLOG) PER UNIT SC SCH (06:00)
[2022-04-09] MEDS ORDERED: fentaNYL 100 MCG/2 ML INJECTION As Ordered ONE (07:29)
[2022-04-09] MEDS ORDERED: LIDOCAINE 2% 100MG/5ML SDV (FOR ANES.) As Ordered ONE (07:29)
[2022-04-09] MEDS ORDERED: propofoL 200 MG/20 ML VIAL As Ordered ONE ×2 (07:29→11:04)
[2022-04-09] MEDS ORDERED: MIDAZOLAM INJ 2MG/2ML VIAL (J2250 PER 1MG) As Ordered ONE (07:30)
[2022-04-09] MEDS ORDERED: traMADol 50 MG TAB PO PRN ×2 (07:55)
[2022-04-09] MEDS ORDERED: ISOVUE-300 61% 50ML VIAL As Ordered ONE (10:24)
[2022-04-09] MEDS ORDERED: GENTAMICIN SULF 80MG/2ML VIAL As Ordered ONE (10:25)
[2022-04-09] MEDS ORDERED: ceFAZolin 1GM VIAL (J0690 PER 500MG) As Ordered ONE (10:43)
[2022-04-09] MEDS ORDERED: ONDANSETRON 4MG/2ML VIAL As Ordered ONE (11:05)
[2022-04-09] MEDS ORDERED: LR 1,000 ML IV SCH (11:50)
[2022-04-09] MEDS ORDERED: oxyCODONE 5MG TAB PO PRN (11:50)
[2022-04-09] MEDS ORDERED: fentaNYL 100 MCG/2 ML INJECTION IV PRN (11:50)
[2022-04-09] MEDS ORDERED: HumuLIN R (REGULAR) INSULIN (NovoLIN R) **100U/ML** PER UNIT IV STA ×2 (12:47→14:38)
[2022-04-09 12:54] LABS: BASO % 0.3 % (0.0-1.0); EOS % 0.1 % (0.0-3.0); HEMOGLOBIN 11.2 g/dl (12.0-15.5); LYMPH # 0.9 10^3/uL (1.5-5.0); LYMPH % 6.9 % (24.0-44.0); MEAN CORPUSCULAR HEMOGLOBIN 29.6 pg (27.0-33.0); MEAN CORPUSCULAR HGB CONC 32.9 g/dl (32.0-36.5); MEAN CORPUSCULAR VOLUME 89.7 fl (80.0-96.0); MONO # 0.8 10^3/uL (0.0-0.8); MONO % 6.1 % (2.0-8.0); NEUTROPHILS # 10.9 10^3/uL (1.5-8.5); NEUTROPHILS % 85.9 % (36.0-66.0); PLATELET COUNT, AUTOMATED 241 10^3/uL (150-450); RED BLOOD COUNT 3.79 10^6/uL (4.00-5.40); WHITE BLOOD COUNT 12.7 10^3/uL (4.0-10.0)
[2022-04-09] MEDS: INSULIN LISPRO (NovoLOG) PER UNIT SC SCH ×3 (13:00→21:10)
[2022-04-09 13:15] LABS: ERYTHROCYTE SEDIMENTATION RATE 78 mm/hr (0-30)
[2022-04-09 13:19] LABS: HEMOGLOBIN A1c 13.7 %
[2022-04-09 13:36] LABS: ALBUMIN 2.7 GM/DL (3.2-5.2); BILIRUBIN,TOTAL 0.5 MG/DL (0.2-1.0); C REACTIVE PROTEIN QUANTITATIV 27.7 MG/DL (0.00-0.30); CALCIUM LEVEL 8.8 MG/DL (8.5-10.1); CREATININE FOR GFR 1.42 MG/DL (0.55-1.30); GLOMERULAR FILTRATION RATE 40.7 (>51); POTASSIUM SERUM 3.8 MEQ/L (3.5-5.1); TOTAL PROTEIN 7.4 GM/DL (6.4-8.2)
[2022-04-09] MEDS ORDERED: diphenhydrAMINE 50MG CAP PO ONE (13:40)
[2022-04-09] MEDS ORDERED: PROMETHAZINE 25MG/ML 1ML VIAL IV ONE (13:40)
[2022-04-09] MEDS ORDERED: oxyBUTYnin 5 MG TAB PO PRN (14:50)
[2022-04-09 15:00] VITALS: BP 149/79
[2022-04-09 15:26] LABS: THYROID STIMULATING HORMONE 2.63 uIU/ML (0.358-3.740)
[2022-04-09 15:30] VITALS: BP 146/79
[2022-04-09] MEDS ORDERED: INSULIN LISPRO (NovoLOG) PER UNIT SC STA (15:48)
[2022-04-09 15:56] LABS: ABG BASE EXCESS 2.7 (-2.0-2.0); ABG HCO3 26.7 MEQ/L (22.0-26.0); ABG O2 SATURATION 93.5 % (95.0-99.0); ABG PARTIAL PRESSURE CO2 38.8 mmHg (35.0-45.0); ABG PARTIAL PRESSURE O2 64.3 mmHg (75.0-100.0); ABG STANDARD HCO3 26.8 MEQ/L (22.0-26.0); ABG TOTAL CO2 27.9 MEQ/L (22.0-29.0); ABG pH (ARTERIAL) 7.455 UNITS (7.350-7.450)
[2022-04-09] MEDS ORDERED: METOPROLOL TART 25 MG TABLET PO ONE (16:00)
[2022-04-09] MEDS: VANCOMYCIN HCL 1,000 MG, VIAL MATE ADAPTER 1 EACH in NS 250 ML IV SCH (16:14)
[2022-04-09 16:30] VITALS: BP 124/72
[2022-04-09 17:00] VITALS: BP 111/58
[2022-04-09] MEDS: IBUPROFEN 400MG TAB PO ONE ×2 (17:42→18:01)
[2022-04-09] MEDS: PIPERACILLIN/TAZOBACTAM SOD 3.375 GM in D5W MINI-BAG PLUS 50 ML IV SCH (17:51)
[2022-04-09] MEDS ORDERED: METOPROLOL TART 12.5 MG PER 1/2 TAB PO SCH (18:00)
[2022-04-09 18:59] LABS: CALCIUM LEVEL 7.7 MG/DL (8.5-10.1); CREATININE FOR GFR 1.21 MG/DL (0.55-1.30); POTASSIUM SERUM 3.2 MEQ/L (3.5-5.1)
[2022-04-09 20:00] VITALS: BP 115/58
[2022-04-09] MEDS: LEVEMIR (INSULIN DETEMIR) 1 UNITS/0.01ML SC SCH (21:00)
[2022-04-09] MEDS: HEPARIN SOD (PORCINE) 5000UNITS/ML 1ML VIAL/SYRINGE SC SCH (21:09)
[2022-04-09] MEDS ORDERED: cefTRIAXone SOD 1 GM in D5W MINI-BAG PLUS 50 ML IV SCH (23:00)
[2022-04-10] VITALS: BP 110/58
[2022-04-10] MEDS: PIPERACILLIN/TAZOBACTAM SOD 3.375 GM in D5W MINI-BAG PLUS 50 ML IV SCH ×2 (00:34→06:12)
[2022-04-10 01:00] LABS: CALCIUM LEVEL 7.8 MG/DL (8.5-10.1); CREATININE FOR GFR 1.15 MG/DL (0.55-1.30); POTASSIUM SERUM 3.4 MEQ/L (3.5-5.1)
[2022-04-10] MEDS: INSULIN LISPRO (NovoLOG) PER UNIT SC SCH ×6 (01:57→20:46)
[2022-04-10 04:00] VITALS: BP 111/60
[2022-04-10 05:11] LABS: BASO % 0.4 % (0.0-1.0); EOS # 0.2 10^3/uL (0.0-0.5); EOS % 1.9 % (0.0-3.0); HEMATOCRIT 30.6 % (36.0-47.0); HEMOGLOBIN 10.1 g/dl (12.0-15.5); LYMPH # 1.1 10^3/uL (1.5-5.0); LYMPH % 10.7 % (24.0-44.0); MEAN CORPUSCULAR HEMOGLOBIN 29.7 pg (27.0-33.0); MONO # 0.9 10^3/uL (0.0-0.8); MONO % 8.6 % (2.0-8.0); NEUTROPHILS % 77.9 % (36.0-66.0); PLATELET COUNT, AUTOMATED 208 10^3/uL (150-450); WHITE BLOOD COUNT 10.2 10^3/uL (4.0-10.0)
[2022-04-10] MEDS ORDERED: ASPIRIN 81 MG CHEW TABLET PO ONE (05:45)
[2022-04-10 05:51] LABS: ALBUMIN 2.3 GM/DL (3.2-5.2); BILIRUBIN,TOTAL 0.3 MG/DL (0.2-1.0); CALCIUM LEVEL 7.9 MG/DL (8.5-10.1); CREATININE FOR GFR 1.18 MG/DL (0.55-1.30); GLOMERULAR FILTRATION RATE 50.4 (>51); POTASSIUM SERUM 3.3 MEQ/L (3.5-5.1); TOTAL PROTEIN 6.3 GM/DL (6.4-8.2)
[2022-04-10] MEDS: HEPARIN SOD (PORCINE) 5000UNITS/ML 1ML VIAL/SYRINGE SC SCH ×3 (06:12→21:29)
[2022-04-10] MEDS ORDERED: POTASSIUM CHLORIDE 10MEQ SR TABLET PO ONE (07:15)
[2022-04-10 08:00] VITALS: BP 152/82
[2022-04-10] MEDS: VANCOMYCIN HCL 1,000 MG, VIAL MATE ADAPTER 1 EACH in NS 250 ML IV SCH ×4 (08:00)
[2022-04-10] MEDS: LEVEMIR (INSULIN DETEMIR) 1 UNITS/0.01ML SC SCH (09:42)
[2022-04-10] MEDS ORDERED: cefTRIAXone SOD 1 GM in D5W MINI-BAG PLUS 50 ML IV SCH (14:00)
[2022-04-10] MEDS: NYSTATIN 100,000 UNITS/GM TOPICAL PWD 15 GM TOP SCH ×2 (14:33→20:47)
[2022-04-10] MEDS: FLUCONAZOLE 100 MG TAB PO SCH (14:41)
[2022-04-10 16:15] VITALS: BP 158/75
[2022-04-10] MEDS: ACETAMINOPHEN TAB 650MG DOSE (2X325MG) PO PRN (16:16)
[2022-04-10] MEDS ORDERED: VANCOMYCIN HCL 1,000 MG, VIAL MATE ADAPTER 1 EACH in NS 250 ML IV SCH (16:40)
[2022-04-10] MEDS ORDERED: KETOROLAC 30 MG/ML 1ML VIAL IV ONE (17:00)
[2022-04-10] MEDS ORDERED: PERCOCET 5MG/325MG TAB PO PRN (17:05)
[2022-04-10] MEDS: LINEZOLID 600MG TABLET (ZYVOX) PO SCH (17:29)
[2022-04-10 20:00] VITALS: BP 140/67
[2022-04-10] MEDS: NYSTATIN CREAM 15 GM TOP SCH (20:47)
[2022-04-10] MEDS ORDERED: LEVEMIR (INSULIN DETEMIR) 1 UNITS/0.01ML SC SCH (21:00)
[2022-04-11 04:00] VITALS: BP 162/74
[2022-04-11 05:05] LABS: BASO % 0.4 % (0.0-1.0); EOS # 0.2 10^3/uL (0.0-0.5); EOS % 2.9 % (0.0-3.0); HEMATOCRIT 30.5 % (36.0-47.0); HEMOGLOBIN 9.9 g/dl (12.0-15.5); LYMPH % 13.7 % (24.0-44.0); MEAN CORPUSCULAR HEMOGLOBIN 29.2 pg (27.0-33.0); MEAN CORPUSCULAR HGB CONC 32.5 g/dl (32.0-36.5); MONO # 0.7 10^3/uL (0.0-0.8); MONO % 9.8 % (2.0-8.0); NEUTROPHILS # 5.3 10^3/uL (1.5-8.5); NEUTROPHILS % 72.4 % (36.0-66.0); PLATELET COUNT, AUTOMATED 215 10^3/uL (150-450); RED BLOOD COUNT 3.39 10^6/uL (4.00-5.40); WHITE BLOOD COUNT 7.3 10^3/uL (4.0-10.0)
[2022-04-11] MEDS: HEPARIN SOD (PORCINE) 5000UNITS/ML 1ML VIAL/SYRINGE SC SCH ×3 (05:20→22:00)
[2022-04-11 05:30] LABS: ALBUMIN 2.1 GM/DL (3.2-5.2); BILIRUBIN,TOTAL 0.2 MG/DL (0.2-1.0); CALCIUM LEVEL 8.3 MG/DL (8.5-10.1); CREATININE FOR GFR 1.04 MG/DL (0.55-1.30); GLOMERULAR FILTRATION RATE 58.4 (>51); POTASSIUM SERUM 3.6 MEQ/L (3.5-5.1); TOTAL PROTEIN 6.4 GM/DL (6.4-8.2)
[2022-04-11] MEDS: INSULIN LISPRO (NovoLOG) PER UNIT SC SCH ×4 (07:30→22:41)
[2022-04-11] MEDS: LINEZOLID 600MG TABLET (ZYVOX) PO SCH ×2 (07:36→18:27)
[2022-04-11 08:00] VITALS: BP 172/84
[2022-04-11] MEDS ORDERED: NITROGLYCERIN 0.4 MG SUBL TABLET As Ordered ONE (08:08)
[2022-04-11] MEDS ORDERED: GI COCKTAIL 50ML BTL(HYOSCYAMINE/MAALOX/LIDOCAINE VISCOUS)(1:3:1) PO PRN (08:45)
[2022-04-11] MEDS: PANTOPRAZOLE 40MG TAB (PROTONIX) PO SCH (09:00)
[2022-04-11] MEDS: ASPIRIN 81 MG CHEW TABLET PO SCH (09:00)
[2022-04-11] MEDS: FLUCONAZOLE 100 MG TAB PO SCH (09:28)
[2022-04-11] MEDS: LEVEMIR (INSULIN DETEMIR) 1 UNITS/0.01ML SC SCH ×2 (09:29→22:26)
[2022-04-11] MEDS: NYSTATIN CREAM 15 GM TOP SCH ×2 (09:30→22:28)
[2022-04-11] MEDS: NYSTATIN 100,000 UNITS/GM TOPICAL PWD 15 GM TOP SCH ×2 (09:30→22:27)
[2022-04-11 09:56] LABS: CK-MB VALUE MASS < 1.0 NG/ML (<3.6); CPK CREATINE PHOSPHOKINASE 295 U/L (26-192); MB/CK RELATIVE INDEX 0.34 (< OR =4)
[2022-04-11 10:01] LABS: MAGNESIUM LEVEL 1.7 MG/DL (1.8-2.4)
[2022-04-11] MEDS ORDERED: METOPROLOL TART 25 MG TABLET PO PRN (13:10)
[2022-04-11 13:27] VITALS: BP 177/84
[2022-04-11 14:00] VITALS: BP 154/48
[2022-04-11] MEDS ORDERED: cefTRIAXone SOD 1GM VIAL (J0696 PER 250MG) IM SCH (14:00)
[2022-04-11] MEDS ORDERED: MAG SULF 1GM/100ML (MAG RUN) 1 GM in IV 1 EA IV ONE (14:00)
[2022-04-11 15:14] LABS: CK-MB VALUE MASS < 1.0 NG/ML (<3.6); CPK CREATINE PHOSPHOKINASE 256 U/L (26-192); MB/CK RELATIVE INDEX 0.39 (< OR =4)
[2022-04-11 15:31] VITALS: BP 154/98
[2022-04-11 20:55] VITALS: BP 143/69
[2022-04-11 21:04] LABS: CK-MB VALUE MASS < 1.0 NG/ML (<3.6); CPK CREATINE PHOSPHOKINASE 278 U/L (26-192); MB/CK RELATIVE INDEX 0.36 (< OR =4)
[2022-04-12] MEDS: LINEZOLID 600MG TABLET (ZYVOX) PO SCH (05:23)
[2022-04-12 05:54] VITALS: BP 144/68
[2022-04-12] MEDS: HEPARIN SOD (PORCINE) 5000UNITS/ML 1ML VIAL/SYRINGE SC SCH (05:54)
[2022-04-12 06:27] LABS: BASO % 0.5 % (0.0-1.0); EOS # 0.2 10^3/uL (0.0-0.5); EOS % 2.8 % (0.0-3.0); HEMOGLOBIN 11.6 g/dl (12.0-15.5); LYMPH # 1.7 10^3/uL (1.5-5.0); LYMPH % 19.8 % (24.0-44.0); MEAN CORPUSCULAR HEMOGLOBIN 29.1 pg (27.0-33.0); MEAN CORPUSCULAR HGB CONC 33.1 g/dl (32.0-36.5); MEAN CORPUSCULAR VOLUME 87.9 fl (80.0-96.0); MONO # 0.7 10^3/uL (0.0-0.8); MONO % 7.9 % (2.0-8.0); NEUTROPHILS # 5.7 10^3/uL (1.5-8.5); NEUTROPHILS % 68.3 % (36.0-66.0); PLATELET COUNT, AUTOMATED 320 10^3/uL (150-450); RED BLOOD COUNT 3.98 10^6/uL (4.00-5.40); WHITE BLOOD COUNT 8.3 10^3/uL (4.0-10.0)
[2022-04-12 06:44] LABS: CK-MB VALUE MASS < 1.0 NG/ML (<3.6); CPK CREATINE PHOSPHOKINASE 236 U/L (26-192); MB/CK RELATIVE INDEX 0.42 (< OR =4)
[2022-04-12 06:56] LABS: ALBUMIN 2.6 GM/DL (3.2-5.2); ALT/SGPT 23 U/L (12-78); BILIRUBIN,TOTAL 0.4 MG/DL (0.2-1.0); BLOOD UREA NITROGEN 13 MG/DL (7-18); CALCIUM LEVEL 9.2 MG/DL (8.5-10.1); CARBON DIOXIDE LEVEL 28 MEQ/L (21-32); CHLORIDE LEVEL 103 MEQ/L (98-107); CREATININE FOR GFR 0.96 MG/DL (0.55-1.30); GLOMERULAR FILTRATION RATE > 60.0 (>51); GLUCOSE, FASTING 239 MG/DL (70-100); POTASSIUM SERUM 3.9 MEQ/L (3.5-5.1); SODIUM LEVEL 137 MEQ/L (136-145); TOTAL PROTEIN 6.7 GM/DL (6.4-8.2)
[2022-04-12] MEDS: INSULIN LISPRO (NovoLOG) PER UNIT SC SCH (07:30)
[2022-04-12] MEDS: ASPIRIN 81 MG CHEW TABLET PO SCH (09:00)
[2022-04-12] MEDS: PANTOPRAZOLE 40MG TAB (PROTONIX) PO SCH ×2 (09:00→09:31)
[2022-04-12] MEDS: FLUCONAZOLE 100 MG TAB PO SCH (09:31)
[2022-04-12] MEDS: LEVEMIR (INSULIN DETEMIR) 1 UNITS/0.01ML SC SCH (09:32)
[2022-04-12] MEDS: NYSTATIN 100,000 UNITS/GM TOPICAL PWD 15 GM TOP SCH (09:33)
[2022-04-12] MEDS: NYSTATIN CREAM 15 GM TOP SCH (09:33)
[2022-04-12] MEDS ORDERED: CEFD300C41 PO (10:15)
[2022-04-12] MEDS ORDERED: NYST10006 TOP (10:15)
[2022-04-12] MEDS ORDERED: FLUC100T3 PO (10:15)
[2022-04-12] MEDS ORDERED: INSUHUMDS SC (10:46)
[2022-04-12] MEDS ORDERED: INSUDET SC (10:46)
[2022-04-12] MEDS ORDERED: FLAS1KIT MC (10:48)
[2022-04-12] MEDS ORDERED: FLAS1EAC MC (10:48)
[2022-04-12] MEDS ORDERED: HUMA100I14 SC (10:59)
[2022-04-12] MEDS ORDERED: [UNRECOGNIZED DRUG - CODE] SC ×2 (10:59)
[2022-04-12] MEDS ORDERED: LEVE1INJ5 SC (10:59)
[2022-04-12] MEDS ORDERED: HUMA100I5 SC (11:40)
== END 2022-04-12 12:00 | disposition home or self-care (01) | DRG 720 ==
LOC: M ED 18:57 → M ED INP 04-09 00:53 → ENRESERV 04-09 14:06 → M MSPAV 04-09 15:01 → M ICU 04-09 16:57 → M MSPAV 04-11 15:30
PROVIDERS: ADMIT Internal Medicine; ATTEND Internal Medicine
PROC: BT16YZZ Fluoroscopy of Right Ureter using Other Contrast (ICD-10-PCS; 2022-04-09)
PROC: 0T767DZ Dilation of Right Ureter with Intraluminal Device, Via Natural or Artificial Opening (ICD-10-PCS; principal; 2022-04-09 09:00)
DX: A41.9 Sepsis, unspecified organism (principal); E87.2 Acidosis; N17.9 Acute kidney failure, unspecified; E11.65 Type 2 diabetes mellitus with hyperglycemia; E66.01 Morbid (severe) obesity due to excess calories; E87.1 Hypo-osmolality and hyponatremia; N13.6 Pyonephrosis; R65.20 Severe sepsis without septic shock; Z20.822 Contact with and (suspected) exposure to COVID-19; Z79.84 Long term (current) use of oral hypoglycemic drugs; Z91.041 Radiographic dye allergy status; Z91.040 Latex allergy status; Z88.1 Allergy status to other antibiotic agents; Z88.2 Allergy status to sulfonamides; Z88.5 Allergy status to narcotic agent; Z88.8 Allergy status to other drugs, medicaments and biological substances; Z91.018 Allergy to other foods; Z68.42 Body mass index [BMI] 45.0-49.9, adult

== ENCOUNTER 2022-04-25 00:14 | Observation (INO) | payer OTHER ==
[~2022-04-25] VITALS: Ht 170.2 cm; Wt 138.7 kg
[~2022-04-25 00:14] MED LIST changes: +CEFD300C41 PO; +FLAS1EAC MC; +FLAS1KIT MC; +FLUC100T3 PO; +HUMA100I14 SC; +HUMA100I5 SC; +INSUDET SC; +INSUHUMDS SC; +LEVE1INJ5 SC; +METF10004 PO; +NYST10006 TOP; +POTA4.25 PO; +TAMS1CAP17 PO; +[UNRECOGNIZED DRUG - CODE] SC
[2022-04-25] MEDS ORDERED: CYCL5TAB PO (01:03)
[2022-04-25] MEDS ORDERED: LISI5TAB11 PO (01:03)
[2022-04-25] MEDS ORDERED: CLOT1CRE71 TOP (01:03)
[2022-04-25 01:30] LABS: BASO # 0.1 10^3/uL (0.0-0.2); BASO % 0.8 % (0.0-1.0); EOS # 0.3 10^3/uL (0.0-0.5); EOS % 2.8 % (0.0-3.0); HEMATOCRIT 37.9 % (36.0-47.0); HEMOGLOBIN 12.7 g/dl (12.0-15.5); LYMPH # 2.4 10^3/uL (1.5-5.0); LYMPH % 25.8 % (24.0-44.0); MEAN CORPUSCULAR HEMOGLOBIN 29.8 pg (27.0-33.0); MEAN CORPUSCULAR HGB CONC 33.5 g/dl (32.0-36.5); MONO # 0.7 10^3/uL (0.0-0.8); MONO % 7.1 % (2.0-8.0); NEUTROPHILS # 5.8 10^3/uL (1.5-8.5); NEUTROPHILS % 63.1 % (36.0-66.0); PLATELET COUNT, AUTOMATED 413 10^3/uL (150-450); RED BLOOD COUNT 4.26 10^6/uL (4.00-5.40); WHITE BLOOD COUNT 9.3 10^3/uL (4.0-10.0)
[2022-04-25 01:57] LABS: RSV AMPLIFICATION NEGATIVE (NEGATIVE)
[2022-04-25 01:59] LABS: ALBUMIN 3.5 GM/DL (3.2-5.2); BILIRUBIN,TOTAL 0.4 MG/DL (0.2-1.0); CALCIUM LEVEL 10.1 MG/DL (8.5-10.1); CREATININE FOR GFR 1.13 MG/DL (0.55-1.30); POTASSIUM SERUM 4.5 MEQ/L (3.5-5.1); TOTAL PROTEIN 7.9 GM/DL (6.4-8.2)
[2022-04-25 02:00] LABS: CK-MB VALUE MASS < 1.0 NG/ML (<3.6); CPK CREATINE PHOSPHOKINASE 41 U/L (26-192); MB/CK RELATIVE INDEX 2.44 (< OR =4)
[2022-04-25] MEDS ORDERED: ONDANSETRON 4MG/2ML VIAL IV ONE (04:10)
[2022-04-25] MEDS ORDERED: NS 1,000 ML IV ONE (04:10)
[2022-04-25] MEDS ORDERED: HYDROMORPHONE HCL 0.5 MG/ 0.5 ML SYRINGE (J1170 PER 1) IV ONE (04:15)
[2022-04-25] MEDS ORDERED: NITROFURANTOIN (MACROBID) 100 MG CAP PO ONE (04:25)
[2022-04-25] MEDS ORDERED: METF500T13 PO (04:43)
[2022-04-25] MEDS ORDERED: HOME MED LIST COMPLETE! XX SCH (04:45)
[2022-04-25] MEDS ORDERED: KETOROLAC 30 MG/ML 1ML VIAL IV PRN ×2 (05:25)
[2022-04-25] MEDS ORDERED: DEXTROSE 50% 50 ML SYRINGE IV PRN (05:25)
[2022-04-25] MEDS ORDERED: ACETAMINOPHEN TAB 650MG DOSE (2X325MG) PO PRN (05:25)
[2022-04-25] MEDS ORDERED: GLUCOSE 4GM CHEW TABLET PO PRN (05:25)
[2022-04-25] MEDS ORDERED: GLUCAGON INJ 1MG VIAL SC PRN (05:25)
[2022-04-25 07:30] VITALS: BP 149/95
[2022-04-25] MEDS: ENOXAPARIN 40MG/0.4ML SYRINGE (J1650 PER 10MG) SC SCH (08:33)
[2022-04-25] MEDS: LEVEMIR (INSULIN DETEMIR) 1 UNITS/0.01ML SC SCH ×2 (08:33→20:56)
[2022-04-25] MEDS: INSULIN LISPRO (NovoLOG) PER UNIT SC SCH ×4 (08:34→17:50)
[2022-04-25] MEDS: CYCLOBENZAPRINE 5MG TABLET PO PRN ×3 (08:36→20:54)
[2022-04-25] MEDS ORDERED: lisinopriL 5 MG TAB PO SCH (09:00)
[2022-04-25 14:00] VITALS: BP 136/75
[2022-04-25] MEDS: NITROFURANTOIN (MACROBID) 100 MG CAP PO SCH (20:55)
[2022-04-25] MEDS ORDERED: INSULIN LISPRO (NovoLOG) PER UNIT SC SCH (21:00)
[2022-04-25 22:00] VITALS: BP 143/80
[2022-04-26 06:00] VITALS: BP 165/84
[2022-04-26 06:26] LABS: HEMATOCRIT 37.8 % (36.0-47.0); HEMOGLOBIN 12.3 g/dl (12.0-15.5); MEAN CORPUSCULAR HEMOGLOBIN 29.6 pg (27.0-33.0); MEAN CORPUSCULAR HGB CONC 32.5 g/dl (32.0-36.5); MEAN CORPUSCULAR VOLUME 91.1 fl (80.0-96.0); PLATELET COUNT, AUTOMATED 329 10^3/uL (150-450); RED BLOOD COUNT 4.15 10^6/uL (4.00-5.40); WHITE BLOOD COUNT 7.3 10^3/uL (4.0-10.0)
[2022-04-26 06:43] LABS: HEMOGLOBIN A1c 12.1 %
[2022-04-26 06:56] LABS: BLOOD UREA NITROGEN 21 MG/DL (7-18); CALCIUM LEVEL 9.7 MG/DL (8.5-10.1); CARBON DIOXIDE LEVEL 29 MEQ/L (21-32); CHLORIDE LEVEL 99 MEQ/L (98-107); CREATININE FOR GFR 0.95 MG/DL (0.55-1.30); GLOMERULAR FILTRATION RATE > 60.0 (>51); GLUCOSE, FASTING 197 MG/DL (70-100); POTASSIUM SERUM 4.3 MEQ/L (3.5-5.1); SODIUM LEVEL 135 MEQ/L (136-145)
[2022-04-26] MEDS: NITROFURANTOIN (MACROBID) 100 MG CAP PO SCH (08:56)
[2022-04-26] MEDS: INSULIN LISPRO (NovoLOG) PER UNIT SC SCH ×2 (08:58→12:00)
[2022-04-26] MEDS: ENOXAPARIN 40MG/0.4ML SYRINGE (J1650 PER 10MG) SC SCH (09:00)
[2022-04-26] MEDS ORDERED: lisinopriL 5 MG TAB PO SCH (09:00)
[2022-04-26] MEDS ORDERED: LEVEMIR (INSULIN DETEMIR) 1 UNITS/0.01ML SC SCH (09:00)
[2022-04-26 09:05] VITALS: BP 115/72
[2022-04-26] MEDS: CYCLOBENZAPRINE 5MG TABLET PO PRN (10:38)
[2022-04-26 10:46] VITALS: BP 152/88
[2022-04-26] MEDS ORDERED: NITR100C2 PO (11:01)
[2022-04-26] MEDS ORDERED: ACET1TAB55 PO (11:01)
[2022-04-26 12:10] VITALS: BP 152/88
== END 2022-04-26 12:57 | disposition home or self-care (01) ==
LOC: M ED 00:14 → M ED INP 00:15 → UNDOADMOB 05:21 → M ED INP 05:21 → ENRESERV 06:11 → M MSPAV 07:22
PROVIDERS: ADMIT Family Medicine; ATTEND Internal Medicine
DX: R10.9 Unspecified abdominal pain (principal); N39.0 Urinary tract infection, site not specified; M79.604 Pain in right leg; E11.9 Type 2 diabetes mellitus without complications; I10 Essential (primary) hypertension; R91.1 Solitary pulmonary nodule; N13.4 Hydroureter; I31.3 Pericardial effusion (noninflammatory); H54.415A Blindness right eye category 5, normal vision left eye; E66.01 Morbid (severe) obesity due to excess calories; Z87.820 Personal history of traumatic brain injury; J45.909 Unspecified asthma, uncomplicated; Z87.442 Personal history of urinary calculi; R32 Unspecified urinary incontinence; Z79.899 Other long term (current) drug therapy; Z79.4 Long term (current) use of insulin; Z79.84 Long term (current) use of oral hypoglycemic drugs; Z91.041 Radiographic dye allergy status; Z88.1 Allergy status to other antibiotic agents; Z88.2 Allergy status to sulfonamides; Z88.5 Allergy status to narcotic agent; Z88.8 Allergy status to other drugs, medicaments and biological substances; Z91.018 Allergy to other foods; Z91.040 Latex allergy status; Z91.013 Allergy to seafood
CPT/HCPCS: 36415; 71046; 73552; 74176; 80048; 80053; 81001; 82550; 82553; 83036; 84484; 85025; 85027; 87086; 87631; 93005; 93971; 96361; 96372; 96374; 96375; 97112; 97116; 97140; 97161; 97165; 97530; 99285; J1170; J1650; J1815; J2405

== ENCOUNTER → 2022-05-06 | Outpatient (CLI) | payer OTHER ==
[~2022-05-06] MED LIST changes: +ACET1TAB55 PO; +CLOT1CRE71 TOP; +CYCL5TAB PO; +NITR100C2 PO
== END ==
LOC: M RAD 11:35
PROVIDERS: ATTEND Physician Assistant
DX: N20.0 Calculus of kidney (principal)

== ENCOUNTER → 2022-05-12 | Outpatient (CLI) | payer OTHER ==
[~2022-05-12] MED LIST changes: +OXYB5TAB10 PO
== END ==
LOC: M LABSMTC 10:05
PROVIDERS: ATTEND Anesthesiology
DX: Z01.818 Encounter for other preprocedural examination (principal); Z11.52 Encounter for screening for COVID-19

== ENCOUNTER 2022-05-13 06:17 | Day surgery (SDC) | payer OTHER ==
[~2022-05-13] VITALS: Ht 170.2 cm; Wt 131.5 kg
[~2022-05-13 06:17] MED LIST changes: -OXYB5TAB10 PO
[2022-05-13] MEDS ORDERED: INSULIN LISPRO (NovoLOG) PER UNIT SC PRN (06:35)
[2022-05-13] MEDS ORDERED: LR 1,000 ML IV SCH ×2 (06:35→08:50)
[2022-05-13] MEDS ORDERED: ceFAZolin SOD 1 GM in D5W MINI-BAG PLUS 50 ML IV ONE (06:55)
[2022-05-13] MEDS ORDERED: ceFAZolin SOD 2 GM in IV 1 EA IV ONE (06:55)
[2022-05-13] MEDS ORDERED: LIDOCAINE 2% 100MG/5ML SDV (FOR ANES.) As Ordered ONE (07:20)
[2022-05-13] MEDS ORDERED: MIDAZOLAM INJ 2MG/2ML VIAL (J2250 PER 1MG) As Ordered ONE ×2 (07:20→08:07)
[2022-05-13] MEDS ORDERED: ONDANSETRON 4MG/2ML VIAL As Ordered ONE (07:20)
[2022-05-13] MEDS ORDERED: dexameTHASONE 4 MG/ML 1ML VIAL (J1100 PER 1MG) As Ordered ONE ×2 (07:20→07:23)
[2022-05-13] MEDS ORDERED: fentaNYL 100 MCG/2 ML INJECTION As Ordered ONE ×2 (07:20→08:40)
[2022-05-13] MEDS ORDERED: propofoL 200 MG/20 ML VIAL As Ordered ONE ×3 (07:20→08:35)
[2022-05-13] MEDS ORDERED: ISOVUE-300 61% 50ML VIAL As Ordered ONE (07:22)
[2022-05-13] MEDS ORDERED: KETAMINE HCL 200 MG/20 ML VIAL As Ordered ONE (07:48)
[2022-05-13] MEDS ORDERED: LIDOCAINE 2% 5ML JELLY UROJET As Ordered ONE (07:49)
[2022-05-13] MEDS ORDERED: ACETAMINOPHEN 1000MG 100ML IV BTL (OFIRMEV) (J0131 PER 10MG) As Ordered ONE (08:05)
[2022-05-13] MEDS: ISOVUE-300 61% 50ML VIAL As Ordered ONE ×2 (08:13→08:19)
[2022-05-13] MEDS ORDERED: ONDANSETRON 4MG/2ML VIAL IV PRN (08:50)
[2022-05-13] MEDS ORDERED: fentaNYL 100 MCG/2 ML INJECTION IV PRN (08:50)
[2022-05-13] MEDS ORDERED: OXYB5TAB10 PO (09:32)
[2022-05-13] MEDS ORDERED: PERCOCET 5MG/325MG TAB PO PRN (09:35)
[2022-05-13 10:45] VITALS: BP 146/76
[2022-05-18 17:07] LABS: Ca Ox Monohydrate 50 % (.); Size 5x4 mm (.); Uric Acid 50 % (.)
== END 2022-05-13 10:51 | disposition home or self-care (01) ==
LOC: M SDC 06:17
PROVIDERS: ATTEND Urology
DX: N20.0 Calculus of kidney (principal); N30.20 Other chronic cystitis without hematuria; I10 Essential (primary) hypertension; E11.65 Type 2 diabetes mellitus with hyperglycemia; E78.5 Hyperlipidemia, unspecified; E04.1 Nontoxic single thyroid nodule; R32 Unspecified urinary incontinence; E66.01 Morbid (severe) obesity due to excess calories; Z87.828 Personal history of other (healed) physical injury and trauma; Z79.899 Other long term (current) drug therapy; Z79.84 Long term (current) use of oral hypoglycemic drugs; Z79.4 Long term (current) use of insulin; Z88.1 Allergy status to other antibiotic agents; Z88.2 Allergy status to sulfonamides; Z88.5 Allergy status to narcotic agent; Z88.8 Allergy status to other drugs, medicaments and biological substances; Z91.018 Allergy to other foods; Z91.040 Latex allergy status; Z91.041 Radiographic dye allergy status
CPT/HCPCS: 52332; 52352; 74420; 82365; 87088; 87186; C1769; C2617; J0131; J0690; J1100; J2250; J2405; J3010; Q9967

== ENCOUNTER → 2022-05-26 | Outpatient (REF) | payer OTHER ==
[~2022-05-26] MED LIST changes: +OXYB5TAB10 PO
== END ==
LOC: M SFHCDERM 13:49
PROVIDERS: ATTEND Physician Assistant
DX: D22.4 Melanocytic nevi of scalp and neck (principal)

== ENCOUNTER → 2022-06-06 | Outpatient (CLI) | payer OTHER | LOC: M RAD 07:23 | PROVIDERS: ATTEND Urology | DX: N26.1 Atrophy of kidney (terminal) (principal) ==

== ENCOUNTER → 2022-06-21 | Outpatient (CLI) | payer OTHER | LOC: M PLAIMG 12:56 | PROVIDERS: ATTEND Urology | DX: Z96.0 Presence of urogenital implants (principal); R91.8 Other nonspecific abnormal finding of lung field; N13.2 Hydronephrosis with renal and ureteral calculous obstruction ==

== ENCOUNTER → 2022-10-07 | Outpatient (CLI) | payer BC | LOC: M RAD 17:34 | PROVIDERS: ATTEND Urology | DX: N23 Unspecified renal colic (principal) ==

== ENCOUNTER → 2023-02-22 | Outpatient (CLI) | payer BC ==
[~2023-02-22] MED LIST changes: +INSU100I6 SC; -LEVE1INJ5 SC
== END ==
LOC: M CARPUL 07:40
PROVIDERS: ATTEND Physician Assistant
DX: R05.9 Cough, unspecified (principal)

== ENCOUNTER → 2023-03-07 | Outpatient (REF) | payer BC ==
[2023-03-07 18:30] LABS: APPEARANCE, URINE TURBID (CLEAR); BACTERIA, URINE AUTO 3+ (NEGATIVE); BILIRUBIN, URINE AUTO NEGATIVE (NEGATIVE); BLOOD, URINE BLOOD 3+ (NEGATIVE); COLOR, URINE YELLOW (YELLOW); GLUCOSE, URINE (UA) AUTO NEGATIVE (NEGATIVE); KETONE, URINE AUTO NEGATIVE (NEGATIVE); LEUKOCYTE ESTERASE, URINE AUTO 3+ (NEGATIVE); NITRITE, URINE AUTO NEGATIVE (NEGATIVE); PROTEIN, URINE AUTO 2+ mg/dL (NEGATIVE); RBC, URINE AUTO TNTC /HPF (0-3); SPECIFIC GRAVITY URINE AUTO 1.013 (1.002-1.035); SQUAMOUS EPITHELIAL CELL UR AU 4 /HPF (0-6); UROBILINOGEN, URINE AUTO 0.2 mg/dL (0.0-2.0); WBC, URINE AUTO TNTC /HPF (0-3)
== END ==
LOC: M SMT 17:04
PROVIDERS: ATTEND Urology
DX: N39.0 Urinary tract infection, site not specified (principal)

== ENCOUNTER → 2023-03-08 | Outpatient (CLI) | payer BC | LOC: M PLAIMG 10:16 | PROVIDERS: ATTEND Physician Assistant | DX: J38.5 Laryngeal spasm (principal) ==

== ENCOUNTER → 2023-03-08 | Outpatient (CLI) | payer BC | LOC: M PLAIMG 10:19 | PROVIDERS: ATTEND Urology | DX: N20.0 Calculus of kidney (principal) ==

== ENCOUNTER → 2023-03-28 | Outpatient (REF) | payer BC ==
[2023-03-28 14:08] LABS: APPEARANCE, URINE TURBID (CLEAR); BACTERIA, URINE AUTO 3+ (NEGATIVE); BILIRUBIN, URINE AUTO NEGATIVE (NEGATIVE); BLOOD, URINE BLOOD 3+ (NEGATIVE); COLOR, URINE AMBER (YELLOW); GLUCOSE, URINE (UA) AUTO 3+ mg/dL (NEGATIVE); KETONE, URINE AUTO NEGATIVE (NEGATIVE); LEUKOCYTE ESTERASE, URINE AUTO 2+ (NEGATIVE); NITRITE, URINE AUTO NEGATIVE (NEGATIVE); PROTEIN, URINE AUTO 3+ mg/dL (NEGATIVE); RBC, URINE AUTO 180 /HPF (0-3); SPECIFIC GRAVITY URINE AUTO 1.014 (1.002-1.035); SQUAMOUS EPITHELIAL CELL UR AU 0 /HPF (0-6); UROBILINOGEN, URINE AUTO 0.2 mg/dL (0.0-2.0); WBC, URINE AUTO TNTC /HPF (0-3)
== END ==
LOC: M SMT 12:55
PROVIDERS: ATTEND Urology
DX: N39.0 Urinary tract infection, site not specified (principal)

== ENCOUNTER → 2023-04-21 | Outpatient (CLI) | payer BC | LOC: M RAD 12:16 | PROVIDERS: ATTEND Urology | DX: N20.0 Calculus of kidney (principal) ==

== ENCOUNTER → 2023-04-28 | Outpatient (REF) | payer BC ==
[2023-04-28 17:58] LABS: APPEARANCE, URINE TURBID (CLEAR); BACTERIA, URINE AUTO 3+ (NEGATIVE); BILIRUBIN, URINE AUTO NEGATIVE (NEGATIVE); BLOOD, URINE BLOOD 3+ (NEGATIVE); COLOR, URINE AMBER (YELLOW); GLUCOSE, URINE (UA) AUTO NEGATIVE (NEGATIVE); KETONE, URINE AUTO NEGATIVE (NEGATIVE); LEUKOCYTE ESTERASE, URINE AUTO 3+ (NEGATIVE); NITRITE, URINE AUTO POSITIVE (NEGATIVE); PROTEIN, URINE AUTO 3+ mg/dL (NEGATIVE); RBC, URINE AUTO TNTC /HPF (0-3); SPECIFIC GRAVITY URINE AUTO 1.013 (1.002-1.035); SQUAMOUS EPITHELIAL CELL UR AU 2 /HPF (0-6); UROBILINOGEN, URINE AUTO 0.2 mg/dL (0.0-2.0); WBC, URINE AUTO TNTC /HPF (0-3)
== END ==
LOC: M SMT 17:14
PROVIDERS: ATTEND Urology
DX: N39.0 Urinary tract infection, site not specified (principal)

== ENCOUNTER → 2023-05-22 | Outpatient (CLI) | payer BC | LOC: M RAD 12:27 | PROVIDERS: ATTEND Physician Assistant | DX: E04.1 Nontoxic single thyroid nodule (principal) ==

== ENCOUNTER → 2023-06-01 | Outpatient (CLI) | payer BC ==
[2023-06-01 11:46] LABS: BASO # 0.1 10^3/uL (0.0-0.2); BASO % 0.9 % (0.0-1.0); EOS # 0.1 10^3/uL (0.0-0.5); EOS % 1.9 % (0.0-3.0); HEMATOCRIT 33.5 % (36.0-47.0); HEMOGLOBIN 10.4 g/dl (12.0-15.5); LYMPH # 1.5 10^3/uL (1.5-5.0); LYMPH % 28.4 % (24.0-44.0); MEAN CORPUSCULAR HEMOGLOBIN 25.8 pg (27.0-33.0); MEAN CORPUSCULAR VOLUME 83.1 fl (80.0-96.0); MONO # 0.7 10^3/uL (0.0-0.8); NEUTROPHILS % 55.2 % (36.0-66.0); PLATELET COUNT, AUTOMATED 489 10^3/uL (150-450); RED BLOOD COUNT 4.03 10^6/uL (4.00-5.40); WHITE BLOOD COUNT 5.4 10^3/uL (4.0-10.0)
[2023-06-01 12:12] LABS: FOLATE 21.31 NG/ML (>5.4)
[2023-06-01 12:13] LABS: FERRITIN 133.4 NG/ML (7.3-270.7); THYROID STIMULATING HORMONE 2.091 uIU/ML (0.55-4.78)
[2023-06-01 12:24] LABS: HEMOGLOBIN A1c 12.6 % (4.0-6.0)
== END ==
LOC: M WUC 09:09
PROVIDERS: ATTEND Physician Assistant
DX: D64.9 Anemia, unspecified (principal); E04.1 Nontoxic single thyroid nodule; E11.65 Type 2 diabetes mellitus with hyperglycemia

== ENCOUNTER → 2023-06-08 | Outpatient (CLI) | payer BC ==
[~2023-06-08] MED LIST changes: +PEN1MIS15 SC; -[UNRECOGNIZED DRUG - CODE] SC
[2023-06-08 17:47] LABS: BLOOD UREA NITROGEN 17 MG/DL (9-23); CALCIUM LEVEL 9.1 MG/DL (8.5-10.1); CARBON DIOXIDE LEVEL 27 MMOL/L (20-31); CHLORIDE LEVEL 97 MMOL/L (98-107); CREATININE FOR GFR 0.82 MG/DL (0.55-1.30); GLOMERULAR FILTRATION RATE > 60.0 (>51); GLUCOSE, FASTING 353 MG/DL (60-100); IRON (FE) 26 UG/DL (50-170); PERCENT SATURATION 10.5 % (13.2-45.0); POTASSIUM SERUM 4.6 MMOL/L (3.5-5.1); SODIUM LEVEL 131 MMOL/L (136-145); TOTAL IRON BINDING CAPACITY 248 UG/DL (250-425)
[2023-06-08 17:50] LABS: BASO % 0.8 % (0.0-1.0); EOS # 0.1 10^3/uL (0.0-0.5); EOS % 1.6 % (0.0-3.0); HEMATOCRIT 32.3 % (36.0-47.0); HEMOGLOBIN 10.1 g/dl (12.0-15.5); LYMPH # 1.5 10^3/uL (1.5-5.0); LYMPH % 29.6 % (24.0-44.0); MEAN CORPUSCULAR HEMOGLOBIN 25.9 pg (27.0-33.0); MEAN CORPUSCULAR HGB CONC 31.3 g/dl (32.0-36.5); MEAN CORPUSCULAR VOLUME 82.8 fl (80.0-96.0); MONO # 0.6 10^3/uL (0.0-0.8); MONO % 11.2 % (2.0-8.0); NEUTROPHILS # 2.8 10^3/uL (1.5-8.5); NEUTROPHILS % 56.4 % (36.0-66.0); PLATELET COUNT, AUTOMATED 521 10^3/uL (150-450)
[2023-06-08 17:52] LABS: FREE T3 2.5 PG/ML (2.3-4.2)
[2023-06-08 17:53] LABS: FERRITIN 96.8 NG/ML (7.3-270.7)
[2023-06-08 17:54] LABS: FREE T4 1.06 NG/DL (0.89-1.76)
[2023-06-10 09:11] LABS: THRYOGLOBULIN ANTIBODIES (ATA) < 1.0 IU/mL (0.0-0.9); THYROGLOBULIN QUANTITATIVE 21.2 ng/mL (1.5-38.5)
== END ==
LOC: M WUC 12:15
PROVIDERS: ATTEND Physician Assistant
DX: D64.9 Anemia, unspecified (principal); E04.1 Nontoxic single thyroid nodule

== ENCOUNTER → 2023-10-11 | Outpatient (CLI) | payer BC ==
[~2023-10-11] MED LIST changes: -CEFD300C41 PO; +CEFD300C42 PO; -OXYB5TAB10 PO; +OXYB5TAB11 PO
== END ==
LOC: M PLAIMG 10:27
PROVIDERS: ATTEND Urology
DX: N20.0 Calculus of kidney (principal); N13.5 Crossing vessel and stricture of ureter without hydronephrosis

== ENCOUNTER 2023-10-16 11:58 | Emergency (ER) | payer BC ==
[~2023-10-16] VITALS: Ht 172.7 cm; Wt 114.1 kg
[2023-10-16 13:43] LABS: BASO % 0.6 % (0.0-1.0); EOS # 0.1 10^3/uL (0.0-0.5); EOS % 1.6 % (0.0-3.0); HEMATOCRIT 26.3 % (36.0-47.0); HEMOGLOBIN 8.1 g/dl (12.0-15.5); LYMPH # 1.3 10^3/uL (1.5-5.0); LYMPH % 26.8 % (24.0-44.0); MEAN CORPUSCULAR HGB CONC 30.8 g/dl (32.0-36.5); MONO # 0.6 10^3/uL (0.0-0.8); NEUTROPHILS # 2.9 10^3/uL (1.5-8.5); NEUTROPHILS % 58.6 % (36.0-66.0); PLATELET COUNT, AUTOMATED 543 10^3/uL (150-450); RED BLOOD COUNT 3.37 10^6/uL (4.00-5.40); WHITE BLOOD COUNT 4.9 10^3/uL (4.0-10.0)
[2023-10-16 14:11] LABS: BLOOD UREA NITROGEN 14 MG/DL (9-23); CALCIUM LEVEL 8.4 MG/DL (8.5-10.1); CARBON DIOXIDE LEVEL 26 MMOL/L (20-31); CHLORIDE LEVEL 94 MMOL/L (98-107); GLOMERULAR FILTRATION RATE > 60.0 (>51); GLUCOSE, FASTING 366 MG/DL (60-100); POTASSIUM SERUM 5.1 MMOL/L (3.5-5.1); SODIUM LEVEL 126 MMOL/L (136-145)
[2023-10-16] MEDS ORDERED: NS 1,000 ML IV ONE (16:25)
[2023-10-16] MEDS ORDERED: KETOROLAC 30 MG/ML 1ML VIAL IV ONE (16:25)
[2023-10-16] MEDS ORDERED: cefTRIAXone SOD 1 GM in D5W MINI-BAG PLUS 50 ML IV ONE (17:25)
[2023-10-16 18:13] LABS: VENOUS BASE EXCESS -0.5 (-2.0-2.0); VENOUS HCO3 25.1 MMOL/L (23.0-27.0); VENOUS O2 SATURATION 69.8 % (60.0-80.0); VENOUS PARTIAL PRESSURE CO2 45.8 mmHg (38.0-50.0); VENOUS PARTIAL PRESSURE O2 40.1 mmHg (30.0-50.0); VENOUS PH 7.357 UNITS (7.330-7.430); VENOUS STANDARD HCO3 23.7 MMOL/L; VENOUS TOTAL CO2 26.5 MMOL/L (24.0-28.0)
[2023-10-16 18:16] LABS: OSMOLALITY SERUM 289 MOSM/KG (275-295)
[2023-10-16 18:17] LABS: PHOSPHORUS LEVEL 3.9 MG/DL (2.5-4.9)
[2023-10-16 18:19] LABS: ACETONE/KETONE 0.17 MMOL/L (0.02-0.27)
[2023-10-16 18:55] VITALS: BP 131/61; TEMP 98.5; O2SAT 99
[2023-10-18] MEDS ORDERED: CEPH500C PO (13:54)
== END 2023-10-16 18:58 | disposition home or self-care (01) ==
LOC: M ED 11:58
DX: N13.30 Unspecified hydronephrosis (principal); D64.9 Anemia, unspecified; I31.39 Other pericardial effusion (noninflammatory); K57.30 Diverticulosis of large intestine without perforation or abscess without bleeding; R91.8 Other nonspecific abnormal finding of lung field; E11.9 Type 2 diabetes mellitus without complications; I10 Essential (primary) hypertension; Z79.4 Long term (current) use of insulin; Z79.899 Other long term (current) drug therapy; Z88.2 Allergy status to sulfonamides; Z88.5 Allergy status to narcotic agent; Z88.1 Allergy status to other antibiotic agents; Z88.8 Allergy status to other drugs, medicaments and biological substances; Z91.041 Radiographic dye allergy status; Z91.040 Latex allergy status; Z91.018 Allergy to other foods
CPT/HCPCS: 74176; 80048; 81001; 82010; 82803; 83605; 83930; 84100; 85025; 87040; 87088; 87186; 96374; 96375; 99283; J0696; J1885

== ENCOUNTER → 2023-11-02 | Outpatient (REF) | payer BC ==
[~2023-11-02] MED LIST changes: +CEFD1CAP9 PO; -CEFD300C42 PO; +CEPH500C PO
== END ==
LOC: M SFHCWAGY 17:19
PROVIDERS: ATTEND Nurse Practitioner Family
DX: Z12.4 Encounter for screening for malignant neoplasm of cervix (principal); R87.5 Abnormal microbiological findings in specimens from female genital organs
CPT/HCPCS: 87624; G0123

== ENCOUNTER → 2023-11-30 | Outpatient (CLI) | payer BC ==
[2023-11-30 13:28] LABS: HEMATOCRIT 29.5 % (36.0-47.0); HEMOGLOBIN 8.8 g/dl (12.0-15.5); MEAN CORPUSCULAR HEMOGLOBIN 23.9 pg (27.0-33.0); MEAN CORPUSCULAR HGB CONC 29.8 g/dl (32.0-36.5); MEAN CORPUSCULAR VOLUME 80.2 fl (80.0-96.0); PLATELET COUNT, AUTOMATED 667 10^3/uL (150-450); RED BLOOD COUNT 3.68 10^6/uL (4.00-5.40); WHITE BLOOD COUNT 5.7 10^3/uL (4.0-10.0)
[2023-11-30 13:51] LABS: PERCENT SATURATION 5.9 % (13.2-45.0)
[2023-11-30 13:55] LABS: FREE T4 1.3 NG/DL (0.89-1.76); THYROID STIMULATING HORMONE 2.532 uIU/ML (0.55-4.78)
[2023-11-30 13:57] LABS: FOLATE 16.91 NG/ML (>5.4)
== END ==
LOC: M PLALAB 09:11
PROVIDERS: ATTEND Internal Medicine Hematology
DX: D50.8 Other iron deficiency anemias (principal)

== ENCOUNTER → 2024-05-08 | Outpatient (CLI) | payer BC ==
[~2024-05-08] MED LIST changes: +HYDR-161 PO; -HYDR10TAB PO; -OXYB5TAB11 PO; +OXYB5TAB14 PO
== END ==
LOC: M WHC 12:21
PROVIDERS: ATTEND Nurse Practitioner Family
DX: Z12.31 Encounter for screening mammogram for malignant neoplasm of breast (principal)

== ENCOUNTER → 2024-05-22 | Outpatient (REF) | payer BC ==
[2024-05-22 17:13] LABS: CREATININE, URINE 51.6 MG/DL; MAU/CREAT RATIO 627.9 MCG/MG (0.0-30.0)
== END ==
LOC: M LAB REF 16:21
PROVIDERS: ATTEND Nurse Practitioner Family
DX: E11.65 Type 2 diabetes mellitus with hyperglycemia (principal); N39.0 Urinary tract infection, site not specified

== ENCOUNTER → 2024-05-23 | Outpatient (CLI) | payer BC ==
[2024-05-23 12:08] LABS: ALBUMIN 2.4 G/DL (3.2-5.2); ALKALINE PHOSPHATASE 59 U/L (46-116); ALT/SGPT < 9 U/L (7.0-40); AST/SGOT < 8 U/L (<34); BILIRUBIN,TOTAL 0.3 MG/DL (0.3-1.2); BLOOD UREA NITROGEN 18 MG/DL (9-23); CALCIUM LEVEL 8.9 MG/DL (8.5-10.1); CARBON DIOXIDE LEVEL 27 MMOL/L (20-31); CHLORIDE LEVEL 103 MMOL/L (98-107); CHOLESTEROL LEVEL 122 MG/DL (<200); CHOLESTEROL RISK RATIO 3.26 (<5); CREATININE FOR GFR 0.81 MG/DL (0.55-1.30); FREE T4 1.16 NG/DL (0.89-1.76); GLOMERULAR FILTRATION RATE > 60.0 (>51); GLUCOSE, FASTING 247 MG/DL (60-100); HDL CHOLESTEROL 37.4 MG/DL (>40); IRON (FE) 12 UG/DL (50-170); NON-HDL-C 84.6 MG/DL; PERCENT SATURATION 5.2 % (13.2-45.0); POTASSIUM SERUM 4.7 MMOL/L (3.5-5.1); SODIUM LEVEL 134 MMOL/L (136-145); TOTAL IRON BINDING CAPACITY 230 UG/DL (250-425); TOTAL PROTEIN 6.8 G/DL (5.7-8.2); TRIGLYCERIDES LEVEL 128 MG/DL (<150)
[2024-05-23 12:09] LABS: FERRITIN 54.7 NG/ML (7.3-270.7); THYROID STIMULATING HORMONE 2.322 uIU/ML (0.55-4.78)
[2024-05-23 12:16] LABS: INR 1.15; PROTHROMBIN TIME 14.4 SECONDS (12.5-14.5)
== END ==
LOC: M WUC 09:47
PROVIDERS: ATTEND Nurse Practitioner Family
DX: E78.5 Hyperlipidemia, unspecified (principal); E78.41 Elevated Lipoprotein(a); E61.1 Iron deficiency; R63.5 Abnormal weight gain; R60.0 Localized edema

== ENCOUNTER → 2024-06-05 | Outpatient (CLI) | payer BC | LOC: M RAD 15:15 | PROVIDERS: ATTEND Nurse Practitioner Family | DX: I31.39 Other pericardial effusion (noninflammatory) (principal) ==

== ENCOUNTER → 2024-09-16 | Outpatient (CLI) | payer BC ==
[~2024-09-16] MED LIST changes: +ACET-1349 PO; +ACET-897 PO; +ASPI81CH33 PO; +ATOR40TA75 PO; +FURO20TA2 PO; +LOSA25TA13 PO; -MULT200T7 PO; +MULT200T9 PO; +MULTTAB86 PO; +OXYC-517 PO; +PROT1TAB2 PO
== END ==
LOC: M LAB 13:50
PROVIDERS: ATTEND Internal Medicine Nephrology
DX: N18.6 End stage renal disease (principal)

== ENCOUNTER 2024-09-17 10:24 | Outpatient (CLI) | payer BC ==
[~2024-09-17] VITALS: Ht 170.2 cm; Wt 118.0 kg
[2024-09-17 10:40] VITALS: BP 125/69; O2SAT 100
[2024-09-17] MEDS: diphenhydrAMINE 25MG CAP PO ONE (11:08)
[2024-09-17] MEDS: NS 250 ML IV ONE (11:09)
[2024-09-17] MEDS: ACETAMINOPHEN 650 MG PO ONE (11:09)
[2024-09-17 11:30] VITALS: BP 122/70; TEMP 97.8; O2SAT 97
[2024-09-17 11:43] VITALS: BP 150/77; TEMP 97.4; O2SAT 97
[2024-09-17 11:45] VITALS: BP 141/66; O2SAT 96
[2024-09-17 13:43] VITALS: BP 145/78; TEMP 98; O2SAT 100
== END 2024-09-17 14:00 ==
LOC: M INFU 10:24
PROVIDERS: ATTEND Internal Medicine Nephrology
DX: N18.6 End stage renal disease (principal); Z88.2 Allergy status to sulfonamides; Z88.5 Allergy status to narcotic agent; Z88.8 Allergy status to other drugs, medicaments and biological substances; Z91.018 Allergy to other foods; Z91.041 Radiographic dye allergy status
CPT/HCPCS: 36430; P9016

== ENCOUNTER → 2024-09-25 | Outpatient (CLI) | payer BC | LOC: M LAB 11:18 | PROVIDERS: ATTEND Internal Medicine Nephrology | DX: N18.6 End stage renal disease (principal) ==

== ENCOUNTER 2024-09-26 12:16 | Outpatient (CLI) | payer BC ==
[~2024-09-26] VITALS: Ht 170.2 cm; Wt 124.0 kg
[2024-09-26] MEDS ORDERED: NS 250 ML IV ONE (12:30)
[2024-09-26 13:05] VITALS: BP 129/74; TEMP 97.9; O2SAT 99
[2024-09-26 13:20] VITALS: BP 136/63; TEMP 98; O2SAT 96
[2024-09-26] MEDS: diphenhydrAMINE 25MG CAP PO ONE (13:22)
[2024-09-26] MEDS: ACETAMINOPHEN 650 MG PO ONE (13:22)
[2024-09-26 14:40] VITALS: BP 134/78; TEMP 98.9; O2SAT 98
[2024-09-26 15:20] VITALS: BP 140/52; TEMP 98.8; O2SAT 98
== END 2024-09-26 15:30 ==
LOC: M INFU 12:16
PROVIDERS: ATTEND Internal Medicine Nephrology
DX: D64.9 Anemia, unspecified (principal); N18.6 End stage renal disease; Z88.2 Allergy status to sulfonamides; Z88.5 Allergy status to narcotic agent; Z91.018 Allergy to other foods; Z91.041 Radiographic dye allergy status
CPT/HCPCS: 36430; P9016

== ENCOUNTER → 2024-10-09 | Outpatient (CLI) | payer BC ==
[~2024-10-09] MED LIST changes: -CYCL5TAB PO; +CYCL5TAB4 PO; +LIDOCAINE 1% MDV 20ML VIAL As Ordered ONE
[2024-10-09 07:05] VITALS: TEMP 99
[2024-10-09 08:23] VITALS: BP 163/77; O2SAT 99
== END ==
LOC: M IRPRO 06:44
PROVIDERS: ATTEND Internal Medicine Nephrology
DX: N17.9 Acute kidney failure, unspecified (principal)

== ENCOUNTER → 2024-10-18 | Outpatient (REF) | payer BC ==
[~2024-10-18] MED LIST changes: -LIDOCAINE 1% MDV 20ML VIAL As Ordered ONE
[2024-10-18 18:02] LABS: AMORPHOUS SEDIMENT SMALL (NEGATIVE); BACTERIA, URINE AUTO NEGATIVE (NEGATIVE); MUCUS, URINE SMALL (NEGATIVE); RBC, URINE AUTO 40 /HPF (0-3); SQUAMOUS EPITHELIAL CELL UR AU 4 /HPF (0-6); WBC, URINE AUTO TNTC /HPF (0-3)
[2024-10-18 18:11] LABS: PERCENT SATURATION 19.9 % (13.2-45.0)
[2024-10-18 18:12] LABS: FERRITIN 55.9 NG/ML (7.3-270.7)
== END ==
LOC: M LAB REF 16:52
PROVIDERS: ATTEND Internal Medicine Nephrology
DX: N13.2 Hydronephrosis with renal and ureteral calculous obstruction (principal); D63.1 Anemia in chronic kidney disease; N18.9 Chronic kidney disease, unspecified

== ENCOUNTER → 2025-02-04 | Outpatient (REF) | payer BC ==
[2025-02-04 18:05] LABS: APPEARANCE, URINE CLEAR (CLEAR); BACTERIA, URINE AUTO 2+ (NEGATIVE); BILIRUBIN, URINE AUTO NEGATIVE (NEGATIVE); BLOOD, URINE BLOOD NEGATIVE (NEGATIVE); COLOR, URINE YELLOW (YELLOW); GLUCOSE, URINE (UA) AUTO NEGATIVE (NEGATIVE); KETONE, URINE AUTO NEGATIVE (NEGATIVE); LEUKOCYTE ESTERASE, URINE AUTO 2+ (NEGATIVE); NITRITE, URINE AUTO NEGATIVE (NEGATIVE); PROTEIN, URINE AUTO NEGATIVE (NEGATIVE); RBC, URINE AUTO 1 /HPF (0-3); SPECIFIC GRAVITY URINE AUTO 1.009 (1.002-1.035); SQUAMOUS EPITHELIAL CELL UR AU 0 /HPF (0-6); UROBILINOGEN, URINE AUTO 0.2 mg/dL (0.0-2.0); WBC, URINE AUTO 25 /HPF (0-3)
== END ==
LOC: M SMT 17:13
PROVIDERS: ATTEND Urology
DX: N13.5 Crossing vessel and stricture of ureter without hydronephrosis (principal); N39.0 Urinary tract infection, site not specified

== ENCOUNTER → 2025-02-05 | Outpatient (CLI) | payer BC | LOC: M WHC 10:22 | PROVIDERS: ATTEND Nurse Practitioner Family | DX: R92.8 Other abnormal and inconclusive findings on diagnostic imaging of breast (principal) ==

== ENCOUNTER → 2025-02-19 | Outpatient (POV) | payer BC ==
[~2025-02-19] VITALS: Ht 170.2 cm; Wt 257.0 kg
[~2025-02-19] MED LIST changes: +NYST100085 TOP
[2025-02-19 09:00] VITALS: BP 136/72; O2SAT 98
== END ==
LOC: M IRPOV 08:52
PROVIDERS: ATTEND Radiology Diagnostic Radiology
DX: E87.70 Fluid overload, unspecified (principal); N18.9 Chronic kidney disease, unspecified; L30.4 Erythema intertrigo; Z88.1 Allergy status to other antibiotic agents; Z88.2 Allergy status to sulfonamides; Z88.5 Allergy status to narcotic agent; Z88.8 Allergy status to other drugs, medicaments and biological substances; Z91.013 Allergy to seafood; Z91.018 Allergy to other foods; Z91.040 Latex allergy status; Z91.041 Radiographic dye allergy status

== ENCOUNTER → 2025-03-05 | Outpatient (CLI) | payer BC ==
[2025-03-05 12:38] LABS: HEMATOCRIT 33.7 % (36.0-47.0); MEAN CORPUSCULAR HEMOGLOBIN 30.2 pg (27.0-33.0); MEAN CORPUSCULAR HGB CONC 32.6 g/dl (32.0-36.5); MEAN CORPUSCULAR VOLUME 92.6 fl (80.0-96.0); PLATELET COUNT, AUTOMATED 434 10^3/uL (150-450); RED BLOOD COUNT 3.64 10^6/uL (4.00-5.40); WHITE BLOOD COUNT 10.3 10^3/uL (4.0-10.0)
[2025-03-05 13:08] LABS: CALCIUM LEVEL 9.4 MG/DL (8.5-10.1); CREATININE FOR GFR 1.12 MG/DL (0.55-1.30); POTASSIUM SERUM 5.3 MMOL/L (3.5-5.1)
== END ==
LOC: M WUC 10:18
PROVIDERS: ATTEND Urology
DX: Z01.818 Encounter for other preprocedural examination (principal); N13.5 Crossing vessel and stricture of ureter without hydronephrosis

== ENCOUNTER → 2025-03-11 | Outpatient (REF) | payer BC ==
[2025-03-11 15:24] LABS: APPEARANCE, URINE HAZY (CLEAR); BACTERIA, URINE AUTO 1+ (NEGATIVE); BILIRUBIN, URINE AUTO NEGATIVE (NEGATIVE); BLOOD, URINE BLOOD 2+ (NEGATIVE); COLOR, URINE YELLOW (YELLOW); GLUCOSE, URINE (UA) AUTO NEGATIVE (NEGATIVE); KETONE, URINE AUTO NEGATIVE (NEGATIVE); LEUKOCYTE ESTERASE, URINE AUTO 3+ (NEGATIVE); NITRITE, URINE AUTO POSITIVE (NEGATIVE); PROTEIN, URINE AUTO 1+ mg/dL (NEGATIVE); RBC, URINE AUTO 6 /HPF (0-3); SQUAMOUS EPITHELIAL CELL UR AU 1 /HPF (0-6); UROBILINOGEN, URINE AUTO 0.2 mg/dL (0.0-2.0); WBC, URINE AUTO 129 /HPF (0-3)
== END ==
LOC: M SMT 14:33
PROVIDERS: ATTEND Urology
DX: N13.5 Crossing vessel and stricture of ureter without hydronephrosis (principal); N39.0 Urinary tract infection, site not specified

== ENCOUNTER → 2025-03-13 | Outpatient (CLI) | payer BC | LOC: M EKG 09:46 | PROVIDERS: ATTEND Urology | DX: N13.5 Crossing vessel and stricture of ureter without hydronephrosis (principal) ==

== ENCOUNTER → 2025-03-13 | Outpatient (CLI) | payer BC | LOC: M RAD 09:43 | PROVIDERS: ATTEND Nurse Practitioner Family | DX: R19.00 Intra-abdominal and pelvic swelling, mass and lump, unspecified site (principal) ==

== ENCOUNTER 2025-03-19 10:43 | Day surgery (SDC) | payer BC ==
[~2025-03-19] VITALS: Ht 172.7 cm; Wt 122.7 kg
[~2025-03-19 10:43] MED LIST changes: +LIDOCAINE 2% 100MG/5ML SDV (FOR ANES.) As Ordered ONE; +MIDAZOLAM INJ 2MG/2ML VIAL As Ordered ONE; +ONDANSETRON 4MG 2ML VIAL As Ordered ONE; +fentaNYL 100 MCG/2 ML INJECTION As Ordered ONE; +propofoL 200 MG/20 ML VIAL As Ordered ONE
[2025-03-19] MEDS ORDERED: GLUCOSE 4 GM CHEW PO PRN (10:55)
[2025-03-19] MEDS ORDERED: DEXTROSE 50% 50ML SYRINGE IV PRN (10:55)
[2025-03-19] MEDS ORDERED: GLUCAGON INJ 1MG VIAL SC PRN (10:55)
[2025-03-19] MEDS ORDERED: INSULIN LISPRO (NovoLOG) PER UNIT SC PRN (10:55)
[2025-03-19] MEDS: ceFAZolin SODIUM 3 GM in DEXTROSE 5% (D5W) MINI-BAG PLU 100 ML IV ONE (12:50)
[2025-03-19] MEDS: LIDOCAINE 2% 5ML JELLY UROJET As Ordered ONE (13:01)
[2025-03-19] MEDS: ISOVUE-300 61% 100ML VIAL As Ordered ONE (13:01)
[2025-03-19 13:46] VITALS: BP 145/80; TEMP 97.9; O2SAT 100
== END 2025-03-19 13:52 | disposition home or self-care (01) ==
LOC: M SDC 10:43
PROVIDERS: ATTEND Urology
DX: N13.5 Crossing vessel and stricture of ureter without hydronephrosis (principal); E11.9 Type 2 diabetes mellitus without complications; I25.2 Old myocardial infarction; Z86.73 Personal history of transient ischemic attack (TIA), and cerebral infarction without residual deficits; Z91.040 Latex allergy status; Z91.018 Allergy to other foods; Z88.5 Allergy status to narcotic agent; Z91.041 Radiographic dye allergy status; Z88.8 Allergy status to other drugs, medicaments and biological substances; Z88.1 Allergy status to other antibiotic agents; Z91.013 Allergy to seafood; Z88.2 Allergy status to sulfonamides; Z79.899 Other long term (current) drug therapy
CPT/HCPCS: 52332; 76000; A4215; C1769; C2617; J0690; J1100; J2250; J2405; J3010; Q9967

== ENCOUNTER → 2025-09-02 | Outpatient (CLI) | payer BC, OTHER ==
[~2025-09-02] MED LIST changes: -LIDOCAINE 2% 100MG/5ML SDV (FOR ANES.) As Ordered ONE; -MIDAZOLAM INJ 2MG/2ML VIAL As Ordered ONE; -ONDANSETRON 4MG 2ML VIAL As Ordered ONE; -fentaNYL 100 MCG/2 ML INJECTION As Ordered ONE; -propofoL 200 MG/20 ML VIAL As Ordered ONE
== END ==
LOC: M RAD 08:33
PROVIDERS: ATTEND Urology
DX: N13.1 Hydronephrosis with ureteral stricture, not elsewhere classified (principal)

== ENCOUNTER → 2025-11-14 | Outpatient (CLI) | payer BC | LOC: M RAD 12:56 | PROVIDERS: ATTEND Urology | DX: N20.0 Calculus of kidney (principal); N13.30 Unspecified hydronephrosis; Z96.0 Presence of urogenital implants; Q63.9 Congenital malformation of kidney, unspecified ==